=== PATIENT | male | born 1950 | race Caucasian/White ===

== ENCOUNTER → 2021-01-17 | Outpatient (CLI) | payer MEDICARE ==
--- NOTE | 2021-01-17 15:19 | US ---
EXAMINATION TYPE: US thyroid st tissue head/neck DATE OF EXAM: 01/17/2021 COMPARISON: NONE CLINICAL HISTORY: E07.9 Disorder of thyroid, unspecified. Difficulty swallowing GLAND SIZE: Right Lobe: 4.6 x 1.8 x 1.7 cm Overall Parenchyma: homogenous Left Lobe: 3.8 x 2.4 x 1.3 cm Overall Parenchyma: homogeneous Isthmus Thickness: 0.2 cm NODULES RIGHT: # of nodules measured on right: 1 1. 0.9 X 0.5 x 1.1 cm, lower medial, mixed cystic and solid, hypoechoic nodule, which is wider than tall, with smooth margins, without echogenic foci. Prior size: no previous LEFT: # of nodules measured on left: 0 ISTHMUS: # of nodules measured in the isthmus: 0 Bilateral neck scanned, 1.2 x 0.7 x 1.0cm cystic area seen in left neck posterior to left thyroid lob e. IMPRESSION: Mildly suspicious nodule right lobe thyroid. 2017 ACR TI-RADS LEVEL: TR-RADS 3 - Mildly Suspicious: Follow if > 1.5 cm, FNA if > 2.5 cm *Highest TI-RADS level nodule reported
== END | disposition home or self-care (01) ==
LOC: RADUSWWP 09:33
PROVIDERS: ATTEND Internal Medicine
DX: E07.89 Other specified disorders of thyroid (principal)
CPT/HCPCS: 76536

== ENCOUNTER → 2021-02-13 | Outpatient (CLI) | payer MEDICARE ==
--- NOTE | 2021-02-13 09:43 | FL ---
ESOPHOGRAM. HISTORY: Dysphagia Esophagram was performed per the air contrast technique. The patient swallowed barium and effervesce nt crystals without difficulty or delay. Esophageal peristalsis and motility appear to be within normal limits. There is no evidence for filling defect, mass or diverticulum. No hiatal hernia seen. Subsequently single contrast cervical esophagram was performed which fails demonstrate evidence for a spiration penetration or mass. IMPRESSION: Unremarkable study.
== END | disposition home or self-care (01) ==
LOC: RADUSWWP 08:43
PROVIDERS: ATTEND Otolaryngology
DX: R13.10 Dysphagia, unspecified (principal)
CPT/HCPCS: 74220

== ENCOUNTER 2022-01-14 16:08 | Emergency (ER) | payer MEDICARE ==
[2022-01-14 16:39] VITALS: RESP 16; TEMP 98
[2022-01-14] MEDS ORDERED: RABIES VACCINE (PCEC) 2.5 UNIT KIT IM ONE (16:49)
[2022-01-14] MEDS ORDERED: RABIES IMM GLOB 300 UNIT/2 ML VIAL IM ONE (16:50)
[2022-01-14] MEDS ORDERED: CEPHALEXIN 500 MG CAP PO STA (16:51)
--- NOTE | 2022-01-14 17:03 | ED ---
Animal Bite HPI - General Chief Complaint: Animal Bite Stated Complaint: raccoon bite Time Seen by Provider: 01/14/22 16:39 Source: patient Mode of arrival: ambulatory Limitations: no limitations - History of Present Illness Initial Comments: Patient is 71-year-old male who presents to the emergency department for evaluation of raccoon bite. Patient states 2 hours prior to arrival who was bit by a raccoon in the front of his left thigh. Patient reports minimal pain. Denies history of rabies vaccine. Denies fever, chills, other concerns. - Related Data Previous Rx's Medication Instructions Recorded Amoxic-Pot Clav 875-125Mg 1 tab PO Q12HR 7 Days #14 tab 01/14/22 [Augmentin 875-125] Allergies Allergy/AdvReac Type Severity Reaction Status Date / Time No Known Allergies Allergy Verified 01/14/22 16:39 Review of Systems ROS Statement: Those systems with pertinent positive or pertinent negative responses have been documented in the HPI. ROS Other: All systems not noted in ROS Statement are negative. Past Medical History Past Medical History: No Reported History History of Any Multi-Drug Resistant Organisms: None Reported Additional Past Surgical History / Comment(s): vasectomy Past Psychological History: No Psychological Hx Reported Smoking Status: Former smoker Past Alcohol Use History: None Reported Past Drug Use History: Marijuana General Exam Limitations: no limitations General appearance: alert, in no apparent distress Head exam: Present: atraumatic, normocephalic, normal inspection Respiratory exam: Present: normal lung sounds bilaterally. Absent: respiratory distress, wheezes, rales, rhonchi, stridor Cardiovascular Exam: Present: regular rate, normal rhythm, normal heart sounds. Absent: systolic murmur, diastolic murmur, rubs, gallop, clicks Extremities exam: Present: other (puncture wound and abrasion to anterior distal left thigh. No active bleeding) Neurological exam: Present: alert, oriented X3, CN II-XII intact Psychiatric exam: Present: normal affect, normal mood Skin exam: Present: warm, dry, intact, normal color. Absent: rash Course Vital Signs 01/14/22 01/14/22 01/14/22 16:35 17:38 19:17 Temperature 98 F Pulse Rate 87 68 78 Respiratory 16 16 16 Rate Blood Pressure 129/69 130/78 O2 Sat by Pulse 94 L 95 94 L Oximetry Medical Decision Making - Medical Decision Making This is a 71-year-old male presenting after a raccoon bite. Wound irrigated extensively. Patient given rabies vaccine and immune globulin. He was given a paper prescription for rest of the vaccine series including day 3, 7, 14. Given Augmentin as wound infection prophylaxis and will be discharged with prescription. Dr. Holbrook is my attending. Disposition Clinical Impression: Bite by animal Disposition: HOME SELF-CARE Condition: Good Instructions (If sedation given, give patient instructions): Rabies Vaccine (By injection), Rabies Immune Globulin (By injection), Animal Bite (ED) Additional Instructions: Take medication as directed. Keep wound clean and dry. Report to Swati to finish rabies vaccine series on 01/17, 01/21, and 01/28. Follow-up with primary c are provider in one to 2 days. Return to the emergency department experience new, concerning, or worsening symptoms. Prescriptions: Amoxic-Pot Clav 875-125Mg [Augmentin 875-125] 1 tab PO Q12HR 7 Days #14 tab Is patient prescribed a controlled substance at d/c from ED?: No Referrals: None,Stated [Primary Care Provider] - 1-2 days Time of Disposition: 17:03
[2022-01-14] MEDS ORDERED: AMOXIC-POT CLAV 875-125MG 1 EACH TAB PO STA (17:12)
[2022-01-14 19:17] VITALS: BP 130/78
[2022-01-14 19:18] VITALS: PULSE 78
== END 2022-01-14 19:18 | disposition home or self-care (01) ==
LOC: EC 16:08 → SUPCPDRO 16:08 → EC 19:18
DX: S71.152A Open bite, left thigh, initial encounter (principal); F12.90 Cannabis use, unspecified, uncomplicated; Z87.891 Personal history of nicotine dependence; W55.51XA Bitten by raccoon, initial encounter; Z20.3 Contact with and (suspected) exposure to rabies
CPT/HCPCS: 90377; 90471; 90675; 96372; 99283

== ENCOUNTER 2022-02-14 18:09 | Inpatient (IN) | payer MEDICARE ==
[2022-02-14] MEDS ORDERED: IPRATROPIUM 0.5 MG/2.5 ML NEBU INHALATION STA (18:17)
[2022-02-14] MEDS ORDERED: ALBUTEROL NEBULIZED 2.5 MG/3 ML INHALATION STA (18:17)
[2022-02-14] MEDS ORDERED: DEXAMETHASONE SOD PHOSPHATE 10 MG/ML 1 ML VIAL IVP STA (18:18)
--- NOTE | 2022-02-14 18:28 | ED ---
General Adult HPI - General Chief complaint: Shortness of Breath Stated complaint: ge Source: patient, EMS Mode of arrival: EMS Limitations: no limitations - History of Present Illness Initial comments: This is a 71-year-old male with a past medical history including COPD presents emergency department for increasing shortness of breath by EMS. The patient stated he was on his couch earlier today when he started to experience right- sided mid and lower chest pain associated with increasing shortness of breath. The patient stated that he asked his [id number] who is a nurse and she recommended that he call EMS for evaluation. The patient received a breathing treatment by EMS during transport and he did state that his breathing had improved since that time. The patient stated that he did not have any acute trauma on the right side of the chest did state that he did pick up and delivery driver his dog while in the process of euthanizing him several days ago. The patient stated that she did not have any acute pain at this time but did state that the pain started abruptly today on the right side of his chest. The patient denied any nausea, vomiting or diaphoresis. The patient was resting in bed comfortably without any fevers or chills or any recently known sick contacts. - Related Data Home Medications Medication Instructions Recorded Confirmed No Known Home Medications 02/14/22 02/14/22 Allergies Allergy/AdvReac Type Severity Reaction Status Date / Time No Known Allergies Allergy Verified 02/14/22 19:29 Review of Systems ROS Statement: Those systems with pertinent positive or pertinent negative responses have been documented in the HPI. ROS Other: All systems not noted in ROS Statement are negative. Past Medical History Past Medical History: No Reported History History of Any Multi-Drug Resistant Organisms: None Reported Additional Past Surgical History / Comment(s): vasectomy Past Psychological History: No Psychological Hx Reported Smoking Status: Former smoker Past Alcohol Use History: Occasional, Rare Past Drug Use History: Marijuana General Exam Limitations: no limitations General appearance: alert Head exam: Present: atraumatic, normocephalic Eye exam: Present: normal appearance, PERRL Pupils: Present: normal accommodation ENT exam: Present: normal exam, normal oropharynx, mucous membranes moist Neck exam: Present: normal inspection, full ROM Respiratory exam: Present: decreased breath sounds Cardiovascular Exam: Present: regular rate, normal rhythm, normal heart sounds GI/Abdominal exam: Present: soft, normal bowel sounds Extremities exam: Present: normal inspection, full ROM Back exam: Present: normal inspection, full ROM Neurological exam: Present: alert, oriented X3, CN II-XII intact Psychiatric exam: Present: normal affect, normal mood Skin exam: Present: warm, dry Course Vital Signs 02/14/22 02/14/22 02/14/22 18:10 19:02 19:29 Temperature 97.7 F Pulse Rate 102 H 102 H 108 H Respiratory 20 Rate Blood Pressure 141/82 O2 Sat by Pulse 92 L Oximetry 02/14/22 02/14/22 02/14/22 19:38 20:07 20:12 Temperature Pulse Rate 93 99 92 Respiratory 18 20 16 Rate Blood Pressure 128/76 110/82 120/72 O2 Sat by Pulse 97 96 97 Oximetry 02/14/22 21:47 Temperature Pulse Rate 78 Respiratory 18 Rate Blood Pressure 110/75 O2 Sat by Pulse 98 Oximetry EKG Findings - EKG Comments: EKG Findings:: An EKG was obtained and was read by myself. EKG showed a rate of 70, GA interval 149 and gnosticism 91. QTc was 423. This EKG showed a normal sinus rhythm with no ST segment elevations or depressions noted. There was atrial enlargement noted in leads 2, 3 and aVF likely consistent with the patient's COPD. Procedures - Chest Tube Insertion Consent Obtained: written consent Side of Procedure: right Indication: Pneumothorax Placed on monitor/pulse oximetry: Yes Site Prep: Chloroprep, Sterile Drape Applied Local Anesthesia: Lidocaine 1% Amount (mLs): 3 Insertion Site: Other (Anterior midclavicular line, 3rd intercostal space) Scalpel: #10 Open into Pleural Space Using: Other (Thoravent kit) Tube Size (Mauritanian): Other (Throavent) Returns: Air Sutured in Place: No (Thoravent sticker) Attached to Suction: Yes (Low int suction through chamber) Type of Suction: Pleuravac Repeat X-ray Results: Lung Inflated Patient Tolerated Procedure: well Medical Decision Making - Medical Decision Making The patient was seen and evaluated in the emergency department. On physical exam, the patient was resting in bed without any acute distress. Vital signs admission were stable and within normal limits however the patient did have hypoxia on arrival on room air. Due to the nature the patient's complaints, laboratory workup, chest x-ray and EKG were obtained. The patient did receive a dose of Decadron as well as a second breathing treatment including albuterol and ipratropium. The patient was resting in bed comfortably on my reevaluation. Chest x-ray was read and interpreted by myself. Chest x-ray showed a right- sided pneumothorax approximately 50%. Due to these findings, a Thoravent was placed successfully on the right side, anterior midclavicular third intercostal space. The patient was placed to intermittent suction and did tolerate the procedure and the placement well. The patient was given Dilaudid 1 mg and final grams of Versed for the procedure and there were no complications noted. Due to the patient's spontaneous pneumothorax and resolution of this based on the second chest x-ray. Repeat chest x-ray was obtained and read by myself as well and showed clearing of the right-sided pneumothorax compared to the recent exam. Dr. Mckee was covering for Dr. Noguera and was contacted and accepted the patient for admission at 2026. The cardiac thoracic surgeon, Dr. Penaloza was also contacted at 2042 was present consult at this time. He did request a CT thorax without contrast and this was ordered at this time. The patient remained stable and was admitted in stable condition. - Lab Data Result diagrams: 02/14/22 18:21 02/14/22 18:21 Lab Results 02/14/22 02/14/22 02/14/22 Range/Units 18:21 18:21 18:21 WBC 10.4 (3.8-10.6) k/uL RBC 4.92 (4.30-5.90) m/uL Hgb 15.7 (13.0-17.5) gm/dL Hct 49.6 (39.0-53.0) % MCV 100.6 H (80.0-100.0) fL MCH 31.8 (25.0-35.0) pg MCHC 31.6 (31.0-37.0) g/dL RDW 13.1 (11.5-15.5) % Plt Count 181 (150-450) k/uL MPV 9.4 Neutrophils % 76 % Lymphocytes % 15 % Monocytes % 5 % Eosinophils % 1 % Basophils % 0 % Neutrophils # 7.9 H (1.3-7.7) k/uL Lymphocytes # 1.6 (1.0-4.8) k/uL Monocytes # 0.5 (0-1.0) k/uL Eosinophils # 0.1 (0-0.7) k/uL Basophils # 0.0 (0-0.2) k/uL Sodium 139 (137-145) mmol/L Potassium 4.4 (3.5-5.1) mmol/L Chloride 100 (98-107) mmol/L Carbon Dioxide 33 H (22-30) mmol/L Anion Gap 6 mmol/L BUN 18 (9-20) mg/dL Creatinine 0.79 (0.66-1.25) mg/dL Est GFR (CKD-EPI)AfAm >90 (>60 ml/min/1.73 sqM) Est GFR (CKD-EPI)NonAf >90 (>60 ml/min/1.73 sqM) Glucose 118 H (74-99) mg/dL Calcium 9.1 (8.4-10.2) mg/dL Magnesium 2.2 (1.6-2.3) mg/dL Total Bilirubin 0.7 (0.2-1.3) mg/dL AST 31 (17-59) U/L ALT 19 (4-49) U/L Alkaline Phosphatase 58 (38-126) U/L Troponin I <0.012 (0.000-0.034) ng/mL NT-Pro-B Natriuret Pep pg/mL Total Protein 7.1 (6.3-8.2) g/dL Albumin 4.2 (3.5-5.0) g/dL Coronavirus (PCR) (Not Detectd) 02/14/22 02/14/22 Range/Units 18:21 18:21 WBC (3.8-10.6) k/uL RBC (4.30-5.90) m/uL Hgb (13.0-17.5) gm/dL Hct (39.0-53.0) % MCV (80.0-100.0) fL MCH (25.0-35.0) pg MCHC (31.0-37.0) g/dL RDW (11.5-15.5) % Plt Count (150-450) k/uL MPV Neutrophils % % Lymphocytes % % Monocytes % % Eosinophils % % Basophils % % Neutrophils # (1.3-7.7) k/uL Lymphocytes # (1.0-4.8) k/uL Monocytes # (0-1.0) k/uL Eosinophils # (0-0.7) k/uL Basophils # (0-0.2) k/uL Sodium (137-145) mmol/L Potassium (3.5-5.1) mmol/L Chloride (98-107) mmol/L Carbon Dioxide (22-30) mmol/L Anion Gap mmol/L BUN (9-20) mg/dL Creatinine (0.66-1.25) mg/dL Est GFR (CKD-EPI)AfAm (>60 ml/min/1.73 sqM) Est GFR (CKD-EPI)NonAf (>60 ml/min/1.73 sqM) Glucose (74-99) mg/dL Calcium (8.4-10.2) mg/dL Magnesium (1.6-2.3) mg/dL Total Bilirubin (0.2-1.3) mg/dL AST (17-59) U/L ALT (4-49) U/L Alkaline Phosphatase (38-126) U/L Troponin I (0.000-0.034) ng/mL NT-Pro-B Natriuret Pep 40 pg/mL Total Protein (6.3-8.2) g/dL Albumin (3.5-5.0) g/dL Coronavirus (PCR) Not Detected (Not Detectd) Critical Care Time Critical Care Time: Yes Total Critical Care Time: 35 Disposition Clinical Impression: Spontaneous pneumothorax Disposition: ADMITTED IP TO THIS [facility] Condition: Stable Is patient prescribed a controlled substance at d/c from ED?: No Referrals: Natalie Noguera MD [Primary Care Provider] - 1-2 days Time of Disposition: 20:27 Decision to Admit Reason: Admit from EC Decision Date: 02/14/22 Decision Time: 20:27
[2022-02-14 18:30] LABS: Basophils % (A) 0 %; Eosinophils # (A) 0.1 k/uL (0-0.7); Eosinophils % (A) 1 %; HCT 49.6 % (39.0-53.0); HGB 15.7 gm/dL (13.0-17.5); Lymphocytes # (A) 1.6 k/uL (1.0-4.8); Lymphocytes % (A) 15 %; MCH 31.8 pg (25.0-35.0); MCHC 31.6 g/dL (31.0-37.0); MCV 100.6 fL (80.0-100.0); Mean Platelet Volume 9.4; Monocytes # (A) 0.5 k/uL (0-1.0); Monocytes % (A) 5 %; Neutrophils # (A) 7.9 k/uL (1.3-7.7); Neutrophils % (A) 76 %; Platelet Count 181 k/uL (150-450); RBC 4.92 m/uL (4.30-5.90); RDW 13.1 % (11.5-15.5); WBC 10.4 k/uL (3.8-10.6)
[2022-02-14 18:41] LABS: ALT 19 U/L (4-49); AST 31 U/L (17-59); African American GFR (CKD) >90 (>60 ml/min/1.73 sqM); Albumin 4.2 g/dL (3.5-5.0); Alkaline Phosphatase 58 U/L (38-126); Anion Gap 6 mmol/L; Blood Urea Nitrogen 18 mg/dL (9-20); Calcium 9.1 mg/dL (8.4-10.2); Carbon Dioxide 33 mmol/L (22-30); Chloride 100 mmol/L (98-107); Glucose 118 mg/dL (74-99); Magnesium 2.2 mg/dL (1.6-2.3); Non-African American GFR(CKD) >90 (>60 ml/min/1.73 sqM); Sodium 139 mmol/L (137-145); Total Bilirubin 0.7 mg/dL (0.2-1.3); Total Protein 7.1 g/dL (6.3-8.2)
--- NOTE | 2022-02-14 18:51 | XR ---
EXAMINATION TYPE: XR chest 2V DATE OF EXAM: 02/14/2022 COMPARISON: 09/01/2021 HISTORY: Short of breath TECHNIQUE: FINDINGS: Heart is normal. Lungs are clear of consolidation. There is some pulmonary hyperinflation a nd flattening of the diaphragm. There are no hilar masses. The bony thorax is intact. There is a moderate size right pneumothorax. Trachea deviated slightly to the left side. Heart also d eviated slightly to the left side. IMPRESSION: There is approximately 50% right-sided pneumothorax. There is some small amount of tensio n and shift of the heart to the left. There is COPD. Pneumothorax is new compared to old exam. Exam was discussed with emergency room attending staff at 6:45 PM.
[2022-02-14 18:54] LABS: Potassium 4.4 mmol/L (3.5-5.1)
[2022-02-14] MEDS ORDERED: MIDAZOLAM 1 MG/ML 5 ML VIAL IV STA (19:41)
[2022-02-14] MEDS ORDERED: HYDROmorphone 1 MG/ML 1 ML SYRINGE IVP STA (19:41)
--- NOTE | 2022-02-14 20:28 | XR ---
EXAMINATION TYPE: XR chest 1V portable DATE OF EXAM: 02/14/2022 COMPARISON: Today HISTORY: Pneumothorax TECHNIQUE: Single view FINDINGS: There is a right-sided chest tube. Trachea is midline. No pneumothorax seen. Lungs are travis r of infiltrate. IMPRESSION: There is clearing of the right-sided pneumothorax compared to recent exam.
[2022-02-14] MEDS ORDERED: NALOXONE 0.4 MG/ML 1 ML VIAL IV PRN (21:47)
--- NOTE | 2022-02-14 21:49 | CT ---
EXAMINATION TYPE: CT chest wo con DATE OF EXAM: 02/14/2022 COMPARISON: None HISTORY: Spontaneous pneumothorax. CT DLP: 362.4 mGycm Automated exposure control for dose reduction was used. Images obtained from the thoracic inlet to the diaphragm with no contrast. There is small right-sided pneumothorax less than 5%. There is pulmonary diffuse emphysema. No medias tinal adenopathy. There are no hilar masses. The ascending aorta measures 3.9 cm. There is coronary a rtery calcification. There is some mild subsegmental atelectasis at the right lung base. Heart size i s normal. The thoracic spine is intact. No significant compression deformity. Sternum is intact. Ther e are pancreatic calcifications consistent with chronic pancreatitis. IMPRESSION: Small right-sided pneumothorax. Pulmonary emphysema. No suspicious pulmonary mass. 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
[2022-02-15] MEDS: HYDROcodone/APAP 5-325MG 1 EACH TAB PO PRN ×4 (01:59→22:27)
--- NOTE | 2022-02-15 07:33 | XR ---
EXAMINATION TYPE: XR chest 1V portable DATE OF EXAM: 02/15/2022 7:21 AM COMPARISON: Chest radiograph from one day prior. TECHNIQUE: XR chest 1V portable Portable AP radiograph of the chest. CLINICAL INDICATION:Male, 71 years old with history of pneumothorax; FINDINGS: Lungs/Pleura: There is flattening of the diaphragm with increased lucency of the lungs. No evidence o f pneumothorax, pleural effusion or focal consolidation. Pulmonary vascularity: Unremarkable. Heart/mediastinum: Cardiomediastinal silhouette is unremarkable. Musculoskeletal: No acute osseous pathology. Other findings: None Lines/Tubes: Right thoracotomy tube is present without appreciable pneumothorax. IMPRESSION: 1. Right thoracotomy tube without appreciable pneumothorax. 2. COPD changes
--- NOTE | 2022-02-15 09:31 | P.GSCN ---
History of Present Illness Consult date: 02/15/22 Reason for Consult: Spontaneous right sided pneumothorax, status post thoravent placement by the ER physicians Requesting physician: Mo Boateng History of present illness: This is a 71 year old male who states he does not follow with a primary care physician outpatient on a regular basis and who currently takes no medications at home. He has a previous medical history of COPD, previous heavy tobacco dependence, daily marijuana use, and GERD. He presented to [facility] with complaints of significant shortness of breath, more than he usually has due to his COPD. He denies any trauma or precipitating factors. He was given nebulizer treatments which partially relieved his SOB. Chest X-Ray completed in the ER demonstrated significant right sided pneumothorax. A thora-vent was placed by the emergency room physicians. Repeat CXR demonstrated almost complete re-expansion of the right lung. He was sent for CT of the chest which did confirm small right sided pneumothorax still present. He was admitted for pneumothorax management with consultation placed to Dr. Penaloza from thoracic surgery for management. Review of Systems ROS was completed and was negative except as noted - Respiratory Reports as per HPI, Reports dyspnea Past Medical History Past Medical History: COPD, GERD/Reflux, Hyperlipidemia Additional Past Medical History / Comment(s): L4/L5 spinal fusion 1989, COPD, History of Any Multi-Drug Resistant Organisms: None Reported Additional Past Surgical History / Comment(s): vasectomy, L4/L5 spinal fusion 1989; "esophagus wrapped" for his GERD Past Anesthesia/Blood Transfusion Reactions: No Reported Reaction Past Psychological History: No Psychological Hx Reported Smoking Status: Former smoker Past Alcohol Use History: None Reported Additional Past Alcohol Use History / Comment(s): reports he quit drinking when he had his back surgery Past Drug Use History: Marijuana Additional Drug Use History / Comment(s): daily marijuana (smokes it) Additional History: used to smoke 2-2 1/2 packs daily for 20 years, quit smoking in 2011 - Past Family History Brother(s) Family Medical History: AICD/Pacemaker Medications and Allergies Home Medications Medication Instructions Recorded Confirmed Type No Known Home Medications 02/14/22 02/14/22 History Allergies Allergy/AdvReac Type Severity Reaction Status Date / Time No Known Allergies Allergy Verified 02/14/22 19:29 Surgical - Exam Vital Signs Temp Pulse Resp BP Pulse Ox 97.7 F 102 H 20 141/82 92 L 12/03/22 18:10 02/14/22 18:10 02/14/22 18:10 02/14/22 18:10 02/14/22 18:10 CONSTITUTIONAL: Awake and alert, appears comfortable, cooperative, well- developed, well-nourished, no pain, no acute distress EYES: Pupils equal, round, reactive to light, normal ocular movement ENT: Moist mucous membranes without oral lesions present NECK: No masses, no bruits, trachea midline RESPIRATORY: Lungs sounds diminshed bilaterally. Respirations even, nonlabored. Currently on 3 LPM NC with oxygen saturation 96%. Strong cough. CARDIOVASCULAR: S1, S2 present. Regular rate and rhythm. Palpable peripheral pulses bilaterally. No edema present. GASTROINTESTINAL: Abdomen soft, nontender, nondistended without masses or organomegaly noted. There is no rebound or guarding present. Active bowel sounds present 4 quadrants. GENITOURINARY: Deferred INTEGUMENTARY: Skin is warm and dry with evidence of good perfusion. NEUROLOGIC: Cranial nerves II through XII intact, normal coordination, no obvious motor or sensory deficits, speech is normal MUSKULOSKELETAL: Able to move all extremities, strength equal bilaterally, normal posture PSYCHIATRIC: Alert and oriented to person place and time, appropriate affect, intact judgment and insight INVASIVE LINES: Right sided thoravent present, no air leak present, no drainage Results - Labs 02/16/22 08:36 02/16/22 08:36 Abnormal Lab Results - Last 24 Hours (Table) 02/14/22 02/14/22 Range/Units 18:21 18:21 MCV 100.6 H (80.0-100.0) fL Neutrophils # 7.9 H (1.3-7.7) k/uL Carbon Dioxide 33 H (22-30) mmol/L Glucose 118 H (74-99) mg/dL Diabetes panel 02/14/22 Range/Units 18:21 Sodium 139 (137-145) mmol/L Potassium 4.4 (3.5-5.1) mmol/L Chloride 100 (98-107) mmol/L Carbon Dioxide 33 H (22-30) mmol/L BUN 18 (9-20) mg/dL Creatinine 0.79 (0.66-1.25) mg/dL Glucose 118 H (74-99) mg/dL Calcium 9.1 (8.4-10.2) mg/dL AST 31 (17-59) U/L ALT 19 (4-49) U/L Alkaline Phosphatase 58 (38-126) U/L Total Protein 7.1 (6.3-8.2) g/dL Albumin 4.2 (3.5-5.0) g/dL Calcium panel 02/14/22 Range/Units 18:21 Calcium 9.1 (8.4-10.2) mg/dL Albumin 4.2 (3.5-5.0) g/dL Pituitary panel 02/14/22 Range/Units 18:21 Sodium 139 (137-145) mmol/L Potassium 4.4 (3.5-5.1) mmol/L Chloride 100 (98-107) mmol/L Carbon Dioxide 33 H (22-30) mmol/L BUN 18 (9-20) mg/dL Creatinine 0.79 (0.66-1.25) mg/dL Glucose 118 H (74-99) mg/dL Calcium 9.1 (8.4-10.2) mg/dL Adrenal panel 02/14/22 Range/Units 18:21 Sodium 139 (137-145) mmol/L Potassium 4.4 (3.5-5.1) mmol/L Chloride 100 (98-107) mmol/L Carbon Dioxide 33 H (22-30) mmol/L BUN 18 (9-20) mg/dL Creatinine 0.79 (0.66-1.25) mg/dL Glucose 118 H (74-99) mg/dL Calcium 9.1 (8.4-10.2) mg/dL Total Bilirubin 0.7 (0.2-1.3) mg/dL AST 31 (17-59) U/L ALT 19 (4-49) U/L Alkaline Phosphatase 58 (38-126) U/L Total Protein 7.1 (6.3-8.2) g/dL Albumin 4.2 (3.5-5.0) g/dL - Imaging Chest x-ray: report reviewed, image reviewed CT scan - chest: report reviewed, image reviewed Assessment and Plan Assessment: 1. Spontaneous right sided pneumothorax, first occurrence, no history of trauma 2. Shortness of breath, secondary to above 3. COPD 4. Previous heavy tobacco dependence 5. Daily marijuana use 6. GERD Plan: The patient was seen and examined with Dr. Penaloza. All films reviewed, patient does still have tiny right sided apical PTX on this morning's CXR. No air leak present. Chest tube was on intermittent suction-corrected to be on continuous suction. We recommend continuing chest tube to continuous wall suction, RN to add enough extension tubing to allow patient to ambulate in room. Incentive spirometry ordered and should be encouraged. Wean oxygen for saturations>88%. Repeat CXR in AM. If stable and no air leak tomorrow will place thoravent to water seal. Patient counseled to continue to refrain from smoking cigarettes, recommend edibles if continuing marijuana. Counseled that future PTX possible due to extent of COPD. Discussed surgical intervention if he should need it, no indication for surgical intervention at this time. Medical management of other comorbidities per internal medicine. Thank you for this consult. More recommendations to follow based on patient's progress. I have personally seen and examined the patient, performed the documentation and the assessment and plan as written. Number of minutes spent on the visit: 30. KIM StarrC Pt seen and examined with RN NEW GRAD above. Agree with her findings. I spent 30 minutes evaluating the patient data and discussing the findings with the patient.
--- NOTE | 2022-02-15 12:32 | P.HPIM ---
History of Present Illness H&P Date: 02/15/22 History of present illness; patient is a 71-year-old gentleman with past medical history significant for COPD, history of tobacco addiction, GERD presented to the ER because of shortness of breath. Patient was in his usual state of health yesterday when while sitting on the couch he suddenly started complaining of increasing shortness of breath. Patient denied any chest pain at time. Denies any complaint of orthopnea or PND. There was no complain of any palpitations. Because of shortness of breath EMS was called and patient received breathing treatment on his way to the ER. In the ER chest x-ray was done that showed patient to have a right-sided pneumothorax for which chest tube was placed and patient was admitted for further evaluation and treatment REVIEW OF SYSTEMS: CONSTITUTIONAL: No fever, no malaise, no fatigue. HEENT: No recent visual problems or hearing problems. Denied any sore throat. CARDIOVASCULAR: No chest pain, orthopnea, PND, no palpitations, no syncope. PULMONARY: As mentioned in HPI GASTROINTESTINAL: No diarrhea, no nausea, no vomiting, no abdominal pain. NEUROLOGICAL: No headaches, no weakness, no numbness. HEMATOLOGICAL: Denies any bleeding or petechiae. GENITOURINARY: Denies any burning micturition, frequency, or urgency. MUSCULOSKELETAL/RHEUMATOLOGICAL: Denies any joint pain, swelling, or any muscle pain. ENDOCRINE: Denies any polyuria or polydipsia. The rest of the 14-point review of systems is negative. PHYSICAL EXAMINATION: GENERAL: The patient is alert and oriented x3, not in any acute distress. Well developed, well nourished. HEENT: Pupils are round and equally reacting to light. EOMI. No scleral icterus. No conjunctival pallor. Normocephalic, atraumatic. No pharyngeal erythema. No thyromegaly. CARDIOVASCULAR: S1 and S2 present. No murmurs, rubs, or gallops. PULMONARY: Chest is clear to auscultation, no wheezing or crackles. Right-sided chest tubes seen ABDOMEN: Soft, nontender, nondistended, normoactive bowel sounds. No palpable organomegaly. MUSCULOSKELETAL: No joint swelling or deformity. EXTREMITIES: No cyanosis, clubbing, or pedal edema. NEUROLOGICAL: Gross neurological examination did not reveal any focal deficits. SKIN: No rashes. Assessment and plan Right sided spontaneous pneumothorax. History of COPD History of tobacco addiction Plan; Encourage use of I-S Aggressive bronchopulmonary hygiene. Start patient on breathing treatments with DuoNeb and Symbicort. We'll consult pulmonary for evaluation Chest tube management per CT surgery Continue pain management Past Medical History Past Medical History: COPD, GERD/Reflux, Hyperlipidemia Additional Past Medical History / Comment(s): L4/L5 spinal fusion 1989, COPD, History of Any Multi-Drug Resistant Organisms: None Reported Additional Past Surgical History / Comment(s): vasectomy, L4/L5 spinal fusion 1989; "esophagus wrapped" for his GERD Past Anesthesia/Blood Transfusion Reactions: No Reported Reaction Past Psychological History: No Psychological Hx Reported Smoking Status: Former smoker Past Alcohol Use History: None Reported Additional Past Alcohol Use History / Comment(s): reports he quit drinking when he had his back surgery Past Drug Use History: Marijuana Additional Drug Use History / Comment(s): daily marijuana (smokes it) - Past Family History Brother(s) Family Medical History: AICD/Pacemaker Medications and Allergies Home Medications Medication Instructions Recorded Confirmed Type No Known Home Medications 02/14/22 02/14/22 History Allergies Allergy/AdvReac Type Severity Reaction Status Date / Time No Known Allergies Allergy Verified 02/14/22 19:29 Physical Exam Vitals: Vital Signs Temp Pulse Pulse Pulse Resp BP BP 02/15/22 11:05 02/15/22 08:00 75 18 02/15/22 07:10 97.6 F 75 18 106/70 02/15/22 02:00 97.7 F 83 15 110/63 02/14/22 23:49 97.9 F 16 130/77 02/14/22 21:47 78 18 110/75 02/14/22 20:12 92 16 120/72 02/14/22 20:07 99 20 110/82 02/14/22 19:38 93 18 128/76 02/14/22 19:29 108 H 02/14/22 19:02 102 H 02/14/22 18:10 97.7 F 102 H 20 141/82 Pulse Ox 02/15/22 11:05 98 02/15/22 08:00 02/15/22 07:10 97 02/15/22 02:00 96 02/14/22 23:49 97 02/14/22 21:47 98 02/14/22 20:12 97 02/14/22 20:07 96 02/14/22 19:38 97 02/14/22 19:29 02/14/22 19:02 02/14/22 18:10 92 L Intake and Output 02/14/22 02/15/22 02/15/22 22:59 06:59 14:59 Intake Total 400 Output Total 5 Balance 395 Intake: Oral 400 Output: Chest Tube Drainage 5 Thora-Vent Right Anterior 5 Chest Other: Voiding Method Toilet Weight 54.431 kg Results CBC & Chem 7: 02/14/22 18:21 02/14/22 18:21 Labs: Abnormal Lab Results - Last 24 Hours (Table) 02/14/22 02/14/22 Range/Units 18:21 18:21 MCV 100.6 H (80.0-100.0) fL Neutrophils # 7.9 H (1.3-7.7) k/uL Carbon Dioxide 33 H (22-30) mmol/L Glucose 118 H (74-99) mg/dL Thrombosis Risk Factor Assmnt - Choose All That Apply Any of the Below Risk Factors Present?: Yes Each Factor Represents 1 point: Abnormal pulmonary function (COPD) Other Risk Factors: Yes Each Risk Factor Represents 2 Points: Age 61-74 years Other congenital or acquired thrombophilia - If yes, enter type in comment: No Thrombosis Risk Factor Assessment Total Risk Factor Score: 3 Thrombosis Risk Factor Assessment Level: Moderate Risk
[2022-02-15] MEDS: SYMBICORT 160-4.5 MCG INHALER INHALATION SCH (20:41)
[2022-02-16] MEDS: IPRATROPIUM-ALBUTEROL 3 ML NEB INHALATION PRN ×4 (07:43→20:30)
[2022-02-16] MEDS: SYMBICORT 160-4.5 MCG INHALER INHALATION SCH ×2 (07:43→20:30)
--- NOTE | 2022-02-16 07:54 | XR ---
EXAMINATION TYPE: XR chest 1V portable DATE OF EXAM: 02/16/2022 HISTORY: Shortness of breath. COMPARISON: 02/15/2022 TECHNIQUE: Single view of the chest is submitted. FINDINGS: Demonstrated are scattered senescent parenchymal change. Right pleural catheter is in place. Right-sided pneumothorax has increased in size with apical pleura l measurement of 2.5 cm versus 6.3 mm previously. There is increasing subcutaneous emphysema along th e right chest. Hilar and mediastinal structures are within normal limits. Degenerative changes are seen of the dorsal spine. IMPRESSION: 1. Increasing size of right-sided pneumothorax.
--- NOTE | 2022-02-16 09:47 | P.PN ---
Subjective Progress Note Date: 02/16/22 Principal diagnosis: Spontaneous right sided pneumothorax, first occurrence, no history of trauma. History of COPD, previous heavy tobacco dependence, daily marijuana use, GERD The patient was seen and examined this morning sitting up in bed in no acute distress. Denies chest pain or shortness of breath. Currently on room air with oxygen saturation in the low to mid 90s. Able to achieve 2000 mL on his incentive spirometry. Right-sided thoravent present, remains to continuous wall suction without any evidence of air leak in the atrium, however when suction tubing removed there is fluctuation of the red diaphragm with coughing. Chest x-ray reviewed this morning demonstrates slight increase in right-sided pneumothorax with some subcutaneous emphysema present. No other new concerns. Objective - Vital Signs Vital signs: Vital Signs Temp 98.1 F 02/16/22 07:45 Pulse 76 02/16/22 07:57 Resp 18 02/16/22 07:45 BP 121/75 02/16/22 00:33 Pulse Ox 92 L 02/16/22 07:45 FiO2 Intake & Output 02/15/22 02/16/22 02/16/22 18:59 06:59 18:59 Output Total 0 Balance 0 Output: Chest Tube Drainage 0 Thora-Vent Right Anterior 0 Chest Other: Voiding Method Toilet # Voids 3 2 1 - Exam CONSTITUTIONAL: Appears comfortable, cooperative, no acute distress RESPIRATORY: Lungs sounds diminished bilaterally. Respirations even, nonlabored. Currently on room air with oxygen saturation 94%. Able to achieve 2000 mL on incentive spirometry. Strong cough. CARDIOVASCULAR: S1, S2 present. Regular rate and rhythm. Palpable peripheral pulses bilaterally. No edema present. No calf pain or tenderness noted. GASTROINTESTINAL: Abdomen soft, nontender, nondistended. Active bowel sounds present 4 quadrants. Tolerating diet. GENITOURINARY: Continues to void INTEGUMENTARY: Skin is warm and dry with evidence of good perfusion NEUROLOGIC: Cranial nerves II through XII intact MUSKULOSKELETAL: Able to move all extremities, strength equal bilaterally, gait normal PSYCHIATRIC: Alert and oriented to person place and time, appropriate affect, intact judgment and insight INVASIVE LINES AND TUBES: Right-sided thoravent present and connected to wall suction, no air leaks present, no drainage present - Allied health notes Allied health notes reviewed: nursing - Labs CBC & Chem 7: 02/14/22 18:21 02/14/22 18:21 - Imaging and Cardiology Chest x-ray: report reviewed, image reviewed Assessment and Plan Assessment: 1. Spontaneous right sided pneumothorax, first occurrence, no history of trauma 2. Shortness of breath, secondary to above 3. COPD 4. Previous heavy tobacco dependence 5. Daily marijuana use 6. GERD Plan: 1. Will continue thoravent to continuous wall suction for another 24 hours 2. Repeat chest x-ray in the morning 3. Encourage incentive spirometry 10 times every hour while awake 4. Increase activity, ambulate in the room as tolerated 5. Medical management of other comorbidities per internal medicine 6. More recommendations to follow
[2022-02-16 12:52] VITALS: BMI 16.2
[2022-02-16 15:23] LABS: HCT 43.4 % (39.6-50.0); HGB 13.9 g/dL (13.0-17.0); MCH 31.8 pg (27.0-32.0); MCV 99.3 fL (80.0-97.0); NRBC Per 100 WBC 0 /100 WBCS (0.0-0.0); Platelet Count 200 X 10*3/uL (140-440); RBC 4.37 X 10*6/uL (4.40-5.60); RDW 13.7 % (11.5-14.5); WBC 9.23 X 10*3/uL (4.50-10.00)
[2022-02-16 15:30] LABS: Albumin 3.7 g/dL (3.8-4.9); Albumin/Globulin Ratio 1.68 (1.60-3.17); Anion Gap 11.1 mmol/L (10.00-18.00); BUN/Creat Ratio 20.8 Ratio (12.00-20.00); Blood Urea Nitrogen 20.8 mg/dL (9.0-27.0); Calcium 9.1 mg/dL (8.7-10.3); Carbon Dioxide 28.9 mmol/L (20.0-27.5); Globulin 2.2 g/dL (1.6-3.3); Non-African American GFR(CKD) 75.9 (60.0-200.0); Total Bilirubin 0.6 mg/dL (0.30-1.20); Total Protein 5.9 g/dL (6.2-8.2)
--- NOTE | 2022-02-16 15:42 | P.CNPUL ---
History of Present Illness Consult date: 02/16/22 Requesting physician: Brannon Mckee Reason for consult: dyspnea, abnormal CXR/CT Chief complaint: Shortness of breath, right-sided chest pain History of present illness: This is a pleasant 71-year-old male patient with no significant past medical history. He is a former smoker who quit in 2011. He does continue to smoke marijuana. No current pulmonary medications. Following up with Dr. Noguera as his primary care provider. He presented here to the emergency room on 02/14/2022 after developing increasing shortness of breath and right-sided chest pain. He was found to have a significant right sided spontaneous pneumothorax. He denied any trauma. He did undergo a right-sided thorax vent placement in the emergency room. White count 9.2. Hemoglobin 13.9. Sodium 140. Potassium 4.0. BUN 20. Creatinine 1.0. Glucose 137. Leung virus by PCR not detected. He did undergo a right-sided thoracentesis placement while in the emergency department. He is seen today in consultation on the regular medical floor. He is currently sitting up in bed. Awake and alert in no acute distress. Maintaining O2 saturations in the 70s on room air. Chest tube remains to wall suction. No significant leak noted. Today's chest x-ray reveals going evidence of the pneumothorax. There is some subcutaneous emphysema noted along the right chest. He is working with the incentive spirometer. Continue on Symbicort and DuoNeb inhalations. [place] for pain control. Review of Systems REVIEW OF SYSTEMS: CONSTITUTIONAL: Denies any recent significant weight loss or weight gain. EYES: Denies change in vision. EARS, NOSE, MOUTH, THROAT: Denies headaches, denies sore throat. CARDIOVASCULAR: Positive for right-sided chest pain, no palpitations or syncopal episodes. RESPIRATORY: Positive for shortness of breath, cough, congestion no hemoptysis. GASTROINTESTINAL: Denies change in appetite, denies abdominal pain GENITOURINARY: Denies hematuria, denies infections. MUSKULOSKELETAL: Denies pain, denies swelling. INTEGUMENTARY: Denies rash, denies eczema. NEUROLOGICAL: Denies recent memory loss, no recent seizure activity. PSYCHIATRIC: Denies anxiety, denies depression. HEMATOLOGIC/LYMPHATIC: Denies anemia, denies enlarged lymph nodes. Past Medical History Past Medical History: COPD, GERD/Reflux, Hyperlipidemia Additional Past Medical History / Comment(s): L4/L5 spinal fusion 1989, COPD, History of Any Multi-Drug Resistant Organisms: None Reported Additional Past Surgical History / Comment(s): vasectomy, L4/L5 spinal fusion 1989; "esophagus wrapped" for his GERD Past Anesthesia/Blood Transfusion Reactions: No Reported Reaction Past Psychological History: No Psychological Hx Reported Smoking Status: Former smoker Past Alcohol Use History: None Reported Additional Past Alcohol Use History / Comment(s): reports he quit drinking when he had his back surgery Past Drug Use History: Marijuana Additional Drug Use History / Comment(s): daily marijuana (smokes it) - Past Family History Brother(s) Family Medical History: AICD/Pacemaker Medications and Allergies Home Medications Medication Instructions Recorded Confirmed Type No Known Home Medications 02/14/22 02/14/22 History Allergies Allergy/AdvReac Type Severity Reaction Status Date / Time No Known Allergies Allergy Verified 02/14/22 19:29 Physical Exam Vitals: Vital Signs Temp Pulse Pulse Pulse Resp BP Pulse Ox 02/16/22 11:18 84 02/16/22 11:07 76 02/16/22 07:57 76 02/16/22 07:45 98.1 F 76 76 18 92 L 02/16/22 07:43 76 02/16/22 00:33 98 F 70 18 121/75 90 L 02/15/22 18:58 98 F 84 18 125/68 91 L Intake and Output 02/16/22 02/16/22 02/16/22 06:59 14:59 22:59 Output Total 0 Balance 0 Output: Chest Tube Drainage 0 Thora-Vent Right Anterior 0 Chest Other: # Voids 2 1 Weight 54.431 kg GENERAL EXAM: Alert, pleasant 71-year-old male patient, on room air, fairly c omfortable in no apparent distress. HEAD: Normocephalic. EYES: Normal reaction of pupils, equal size. NOSE: Clear with pink turbinates. THROAT: No erythema or exudates. NECK: No masses, no JVD. CHEST: No chest wall deformity. Right sided Thora-vent secured in place. Pleural VAC. Wall suction. Minimal leak LUNGS: Equal air entry with no crackles, wheeze, rhonchi or dullness. CVS: S1 and S2 normal with no audible murmur, regular rhythm. ABDOMEN: No hepatosplenomegaly, normal bowel sounds, no guarding or rigidity. SPINE: No scoliosis or deformity SKIN: No rashes CENTRAL NERVOUS SYSTEM: No focal deficits, tone is normal in all 4 extremities. EXTREMITIES: There is no peripheral edema. No clubbing, no cyanosis. Peripheral pulses are intact. Results - Laboratory Findings CBC and BMP: 02/16/22 08:36 02/16/22 08:36 Abnormal lab findings: Abnormal Labs 02/14/22 02/14/22 02/16/22 18:21 18:21 08:36 RBC 4.37 L MCV 100.6 H 99.3 H Neutrophils # 7.9 H Carbon Dioxide 33 H BUN/Creatinine Ratio Glucose 118 H AST Total Protein Albumin 02/16/22 08:36 RBC MCV Neutrophils # Carbon Dioxide 28.9 H BUN/Creatinine Ratio 20.80 H Glucose 137 H AST 13 L Total Protein 5.9 L Albumin 3.7 L - Diagnostic Findings Chest x-ray: image reviewed Assessment and Plan Assessment: Acute right-sided chest pain and shortness of breath secondary to spontaneous right-sided pneumothorax, status post Thor-Vent placement History of heavy chronic tobacco dependence however quit in 2011 History of marijuana use Chronic obstructive pulmonary disease Plan: The patient was seen and evaluated Chest x-rays, labs and medications reviewed Continue Symbicort and DuoNeb inhalations Continue to monitor chest x-ray/pneumothorax Thora-Vent remains in place, CT services on the case Educated regarding the importance of complete smoking cessation Would benefit from a full workup in our office including pulmonary function testing We will continue to follow and make further recommendations based on his clinical status I have personally seen and examined the patient, performed the documentation and the assessment and plan as written. Number of minutes spent on the visit: 20.
--- NOTE | 2022-02-16 19:52 | P.PN ---
Subjective History of present illness; patient is a 71-year-old gentleman with past medical history significant for COPD, history of tobacco addiction, GERD presented to the ER because of shortness of breath. Patient was in his usual state of health yesterday when while sitting on the couch he suddenly started complaining of increasing shortness of breath. Patient denied any chest pain at time. Denies any complaint of orthopnea or PND. There was no complain of any palpitations. Because of shortness of breath EMS was called and patient received breathing treatment on his way to the ER. In the ER chest x-ray was done that showed patient to have a right-sided pneumothorax for which chest tube was placed and patient was admitted for further evaluation and treatment 02/16/2022 Patient is status post right upper chest Thora-Vent which is in a Place Patient does not complain of from dyspnea or coughing or pain while at rest Repeat chest x-ray showing increasing size of the right pneumothorax Pulmonary and cardiovascular surgery team on the case and the recommend further workup as an outpatient for pulmonary function test Objective - Vital Signs Vital signs: Vital Signs Temp 98.1 F 02/16/22 07:45 Pulse 80 02/16/22 15:38 Resp 18 02/16/22 07:45 BP 121/75 02/16/22 00:33 Pulse Ox 92 L 02/16/22 07:45 FiO2 Intake & Output 02/15/22 02/16/22 02/16/22 18:59 06:59 18:59 Output Total 0 Balance 0 Weight 54.431 kg Output: Chest Tube Drainage 0 Thora-Vent Right Anterior 0 Chest Other: Voiding Method Toilet # Voids 3 2 1 - Exam GENERAL: The patient is alert and oriented x3, not in any acute distress. Well developed, well nourished. HEENT: Pupils are round and equally reacting to light. EOMI. No scleral icterus. No conjunctival pallor. Normocephalic, atraumatic. No pharyngeal erythema. No thyromegaly. CARDIOVASCULAR: S1 and S2 present. No murmurs, rubs, or gallops. -PULMONARY: Chest is clear to auscultation, no wheezing or crackles. Right upper chest thora-vent in place ABDOMEN: Soft, nontender, nondistended, normoactive bowel sounds. No palpable organomegaly. MUSCULOSKELETAL: No joint swelling or deformity. EXTREMITIES: No cyanosis, clubbing, or pedal edema. NEUROLOGICAL: Gross neurological examination did not reveal any focal deficits. SKIN: No rashes. no petechiae. - Labs CBC & Chem 7: 02/16/22 08:36 02/16/22 08:36 Labs: Abnormal Lab Results - Last 24 Hours (Table) 02/16/22 02/16/22 Range/Units 08:36 08:36 RBC 4.37 L (4.40-5.60) X 10*6/uL MCV 99.3 H (80.0-97.0) fL Carbon Dioxide 28.9 H (20.0-27.5) mmol/L BUN/Creatinine Ratio 20.80 H (12.00-20.00) Ratio Glucose 137 H (70-110) mg/dL AST 13 L (14-35) U/L Total Protein 5.9 L (6.2-8.2) g/dL Albumin 3.7 L (3.8-4.9) g/dL Assessment and Plan Assessment: Right sided spontaneous pneumothorax. Status post right side thora-vent History of COPD History of tobacco addiction Plan: Continue with Serevent Aggressive bronchopulmonary hygiene. Start patient on breathi continue with ng treatments with DuoNeb and Symbicort. Pulmonary team consult Cardiovascular surgery team of the case Labs and medication were reviewed.. Continue same treatment. Continue with symptomatic treatment. Resume home medication. Monitor lytes and vitals. DVT and GI prophylaxis. Further recommendations as per clinical course of the patient DVT prophylaxis: Subcutaneous heparin GI Prophylaxis: Pepcid \
[2022-02-16] MEDS: HEPARIN SODIUM,PORCINE/PF 5,000 UNIT/0.5 ML SYRINGE SQ SCH (21:14)
[2022-02-16] MEDS: FAMOTIDINE 20 MG/2 ML VIAL IV SCH (21:14)
[2022-02-17] MEDS: IPRATROPIUM-ALBUTEROL 3 ML NEB INHALATION PRN ×4 (07:29→19:54)
[2022-02-17] MEDS: SYMBICORT 160-4.5 MCG INHALER INHALATION SCH ×2 (07:30→19:54)
[2022-02-17] MEDS: FAMOTIDINE 20 MG/2 ML VIAL IV SCH ×2 (08:48→20:55)
[2022-02-17] MEDS: HEPARIN SODIUM,PORCINE/PF 5,000 UNIT/0.5 ML SYRINGE SQ SCH ×2 (08:48→20:55)
--- NOTE | 2022-02-17 08:54 | P.PN ---
Subjective Progress Note Date: 02/17/22 Principal diagnosis: Spontaneous right sided pneumothorax, first occurrence, no history of trauma. History of COPD, previous heavy tobacco dependence, daily marijuana use, GERD The patient was seen and examined this morning sitting up in bed in no acute distress eating breakfast. Denies chest pain or shortness of breath. Currently on room air with oxygen saturation in the low to mid 90s. Able to achieve 2000 mL on his incentive spirometry. Right-sided thoravent present, remains to continuous wall suction without any evidence of air leak in the atrium and no fluctuation of the right diaphragm. Chest x-ray reviewed this morning, no pneumothorax present. No other new concerns. Objective - Vital Signs Vital signs: Vital Signs Temp 97.7 F 02/17/22 07:47 Pulse 76 02/17/22 07:47 Resp 20 02/17/22 07:47 BP 105/70 02/17/22 07:47 Pulse Ox 94 L 02/17/22 07:47 FiO2 21 02/17/22 07:30 Intake & Output 02/16/22 02/17/22 02/17/22 18:59 06:59 18:59 Weight 54.431 kg Other: Voiding Method Toilet # Voids 1 1 - Exam CONSTITUTIONAL: Appears comfortable, cooperative, no acute distress RESPIRATORY: Lungs sounds diminished bilaterally. Respirations even, nonlabored. Currently on room air with oxygen saturation 92%. Able to achieve 2000 mL on incentive spirometry. Strong cough. CARDIOVASCULAR: S1, S2 present. Regular rate and rhythm, sinus rhythm on telemetry. Palpable peripheral pulses bilaterally. No edema present. No calf pain or tenderness noted. GASTROINTESTINAL: Abdomen soft, nontender, nondistended. Active bowel sounds present 4 quadrants. Tolerating diet. GENITOURINARY: Continues to void INTEGUMENTARY: Skin is warm and dry with evidence of good perfusion NEUROLOGIC: Cranial nerves II through XII intact MUSKULOSKELETAL: Able to move all extremities, strength equal bilaterally, gait normal PSYCHIATRIC: Alert and oriented to person place and time, appropriate affect, i ntact judgment and insight INVASIVE LINES AND TUBES: Right-sided thoravent present and connected to wall suction, no air leaks present, no drainage present - Allied health notes Allied health notes reviewed: nursing - Labs CBC & Chem 7: 02/16/22 08:36 02/16/22 08:36 Labs: Abnormal Lab Results - Last 24 Hours (Table) 02/16/22 02/16/22 Range/Units 08:36 08:36 RBC 4.37 L (4.40-5.60) X 10*6/uL MCV 99.3 H (80.0-97.0) fL Carbon Dioxide 28.9 H (20.0-27.5) mmol/L BUN/Creatinine Ratio 20.80 H (12.00-20.00) Ratio Glucose 137 H (70-110) mg/dL AST 13 L (14-35) U/L Total Protein 5.9 L (6.2-8.2) g/dL Albumin 3.7 L (3.8-4.9) g/dL - Imaging and Cardiology Chest x-ray: image reviewed Assessment and Plan Assessment: 1. Spontaneous right sided pneumothorax, first occurrence, no history of trauma 2. Shortness of breath, secondary to above 3. COPD 4. Previous heavy tobacco dependence 5. Daily marijuana use 6. GERD Plan: 1. Thoravent placed to waterseal this morning. 2. Repeat chest x-ray in the morning, if stable will place occlusive cap 3. Encourage incentive spirometry 10 times every hour while awake 4. Increase activity, ambulate in the room as tolerated 5. Medical management of other comorbidities per internal medicine 6. More recommendations to follow
--- NOTE | 2022-02-17 09:01 | XR ---
EXAMINATION TYPE: XR chest 1V portable DATE OF EXAM: 02/17/2022 6:55 AM COMPARISON: Chest radiographs from 02/16/2022. TECHNIQUE: XR chest 1V portable Frontal view of the chest. CLINICAL INDICATION:Male, 71 years old with history of pneumothorax; FINDINGS: Lungs/Pleura: Interval decrease in right-sided pneumothorax with trace apical pneumothorax jumped 4 m m. No pleural effusion or focal consolidation. Pulmonary vascularity: Unremarkable. Heart/mediastinum: Cardiomediastinal silhouette is unremarkable. Atherosclerotic calcifications are seen in the aorta. Musculoskeletal: No acute osseous pathology. Other findings: Similar subcutaneous emphysema along the right chest wall. Lines/Tubes: Right thoracotomy tube is present. IMPRESSION: 1. Decreased size of right pneumothorax with trace apical pneumothorax demonstrated. Stable right th oracotomy tube. 2. Similar right chest wall subcutaneous emphysema.
--- NOTE | 2022-02-17 10:54 | P.PN ---
Subjective History of present illness; patient is a 71-year-old gentleman with past medical history significant for COPD, history of tobacco addiction, GERD presented to the ER because of shortness of breath. Patient was in his usual state of health yesterday when while sitting on the couch he suddenly started complaining of increasing shortness of breath. Patient denied any chest pain at time. Denies any complaint of orthopnea or PND. There was no complain of any palpitations. Because of shortness of breath EMS was called and patient received breathing treatment on his way to the ER. In the ER chest x-ray was done that showed patient to have a right-sided pneumothorax for which chest tube was placed and patient was admitted for further evaluation and treatment 02/16/2022 Patient is status post right upper chest Thora-Vent which is in a Place Patient does not complain of from dyspnea or coughing or pain while at rest Repeat chest x-ray showing increasing size of the right pneumothorax Pulmonary and cardiovascular surgery team on the case and the recommend further workup as an outpatient for pulmonary function test 02/17/2022 Patient reports improvement in his breathing pattern Chest x-ray showing decreased size of the right pneumothorax He is status post right upper chest Thora vent placement which is in place He is saturating 94% on room air Objective - Vital Signs Vital signs: Vital Signs Temp 97.7 F 02/17/22 07:47 Pulse 84 02/17/22 10:51 Resp 20 02/17/22 07:47 BP 105/70 02/17/22 07:47 Pulse Ox 94 L 02/17/22 07:47 FiO2 21 02/17/22 07:30 Intake & Output 02/16/22 02/17/22 02/17/22 18:59 06:59 18:59 Weight 54.431 kg Other: Voiding Method Toilet # Voids 1 1 1 - Exam GENERAL: The patient is alert and oriented x3, not in any acute distress. Well developed, well nourished. HEENT: Pupils are round and equally reacting to light. EOMI. No scleral icterus. No conjunctival pallor. Normocephalic, atraumatic. No pharyngeal erythema. No thyromegaly. CARDIOVASCULAR: S1 and S2 present. No murmurs, rubs, or gallops. -PULMONARY: Chest is clear to auscultation, no wheezing or crackles. Right upper chest thora-vent in place ABDOMEN: Soft, nontender, nondistended, normoactive bowel sounds. No palpable organomegaly. MUSCULOSKELETAL: No joint swelling or deformity. EXTREMITIES: No cyanosis, clubbing, or pedal edema. NEUROLOGICAL: Gross neurological examination did not reveal any focal deficits. SKIN: No rashes. no petechiae. - Labs CBC & Chem 7: 02/16/22 08:36 02/16/22 08:36 Labs: Abnormal Lab Results - Last 24 Hours (Table) 02/16/22 02/16/22 Range/Units 08:36 08:36 RBC 4.37 L (4.40-5.60) X 10*6/uL MCV 99.3 H (80.0-97.0) fL Carbon Dioxide 28.9 H (20.0-27.5) mmol/L BUN/Creatinine Ratio 20.80 H (12.00-20.00) Ratio Glucose 137 H (70-110) mg/dL AST 13 L (14-35) U/L Total Protein 5.9 L (6.2-8.2) g/dL Albumin 3.7 L (3.8-4.9) g/dL Assessment and Plan Assessment: Right sided spontaneous pneumothorax. Status post right side thora-vent History of COPD History of tobacco addiction Plan: Continue with Serevent Aggressive bronchopulmonary hygiene. Start patient on breathi continue with ng treatments with DuoNeb and Symbicort. Pulmonary team consult Cardiovascular surgery team of the case Labs and medication were reviewed.. Continue same treatment. Continue with symptomatic treatment. Resume home medication. Monitor lytes and vitals. DVT and GI prophylaxis. Further recommendations as per clinical course of the patient DVT prophylaxis: Subcutaneous heparin GI Prophylaxis: Pepcid \
--- NOTE | 2022-02-17 15:08 | P.PN ---
Subjective Progress Note Date: 02/17/22 This is a pleasant 71-year-old male patient with no significant past medical history. He is a former smoker who quit in 2011. He does continue to smoke marijuana. No current pulmonary medications. Following up with Dr. Noguera as his primary care provider. He presented here to the emergency room on 05/2021 after developing increasing shortness of breath and right-sided chest pain. He was found to have a significant right sided spontaneous pneumothorax. He denied any trauma. He did undergo a right-sided thorax vent placement in the emergency room. White count 9.2. Hemoglobin 13.9. Sodium 140. Potassium 4.0. BUN 20. Creatinine 1.0. Glucose 137. Leung virus by PCR not detected. He did undergo a right-sided thoracentesis placement while in the emergency department. He is seen today in consultation on the regular medical floor. He is currently sitting up in bed. Awake and alert in no acute distress. Maintaining O2 saturations in the 70s on room air. Chest tube remains to wall suction. No significant leak noted. Today's chest x-ray reveals going evidence of the pneumothorax. There is some subcutaneous emphysema noted along the right chest. He is working with the incentive spirometer. Continue on Symbicort and DuoNeb inhalations. [place] for pain control. The patient is seen today 02/17/2022 follow-up. He is currently sitting up in a chair at the bedside. Awake and alert in no acute distress. Maintaining good O2 saturations in the 90s on room air. No IV fluids. His chest tube has been placed to waterseal. Chest x-ray showing decreased right pneumothorax with a trace apical pneumothorax still present. Thora-Vent remains in place. Right chest wall subcutaneous emphysema noted. He continues to work well with the incentive spirometer. Continued on Symbicort, DuoNeb inhalations. Heparin for DVT prophylaxis. Objective - Vital Signs Vital signs: Vital Signs Temp 98.6 F 02/17/22 14:41 Pulse 82 02/17/22 14:41 Resp 18 02/17/22 14:41 BP 96/58 02/17/22 14:41 Pulse Ox 93 L 02/17/22 14:41 FiO2 21 02/17/22 07:30 Intake & Output 02/16/22 02/17/22 02/17/22 18:59 06:59 18:59 Weight 54.431 kg Other: Voiding Method Toilet # Voids 1 1 1 - Exam GENERAL EXAM: Alert, pleasant 71-year-old male, on room air, up in a chair at the bedside, comfortable in no apparent distress. HEAD: Normocephalic. EYES: Normal reaction of pupils, equal size. NOSE: Clear with pink turbinates. THROAT: No erythema or exudates. NECK: No masses, no JVD. CHEST: Right chest subcutaneous pneumothorax. Right sided Thora-vent secured in place. Pleural VAC. Waterseal. LUNGS: Equal air entry with no crackles, wheeze, rhonchi or dullness. CVS: S1 and S2 normal with no audible murmur, regular rhythm. ABDOMEN: No hepatosplenomegaly, normal bowel sounds, no guarding or rigidity. SPINE: No scoliosis or deformity SKIN: No rashes CENTRAL NERVOUS SYSTEM: No focal deficits, tone is normal in all 4 extremities. EXTREMITIES: There is no peripheral edema. No clubbing, no cyanosis. Peripheral pulses are intact. - Labs CBC & Chem 7: 02/16/22 08:36 02/16/22 08:36 Labs: Abnormal Lab Results - Last 24 Hours (Table) 02/16/22 02/16/22 Range/Units 08:36 08:36 RBC 4.37 L (4.40-5.60) X 10*6/uL MCV 99.3 H (80.0-97.0) fL Carbon Dioxide 28.9 H (20.0-27.5) mmol/L BUN/Creatinine Ratio 20.80 H (12.00-20.00) Ratio Glucose 137 H (70-110) mg/dL AST 13 L (14-35) U/L Total Protein 5.9 L (6.2-8.2) g/dL Albumin 3.7 L (3.8-4.9) g/dL Assessment and Plan Assessment: Acute right-sided chest pain and shortness of breath secondary to spontaneous right-sided pneumothorax, status post Thor-Vent placement History of heavy chronic tobacco dependence however quit in 2011 History of marijuana use Chronic obstructive pulmonary disease Plan: The patient was seen and evaluated Chest x-ray, medications reviewed Improved with just a trace right apical pneumothorax CT tube placed to [facility] per CT services. Continue Symbicort and DuoNeb inhalations Follow-up chest x-ray in a.m. We will continue to follow I have personally seen and examined the patient, performed the documentation and the assessment and plan as written. Number of minutes spent on the visit: 10.
--- NOTE | 2022-02-18 07:15 | XR ---
EXAMINATION TYPE: XR chest 2V DATE OF EXAM: 02/18/2022 6:35 AM COMPARISON: Chest radiograph from one day prior. TECHNIQUE: XR chest 2V Frontal and lateral views of the chest. CLINICAL INDICATION:Male, 71 years old with history of pneumothorax; FINDINGS: Lungs/Pleura: There is flattening of the diaphragm with increased lucency of the lungs. No evidence o f pneumothorax, pleural effusion or focal consolidation. Pulmonary vascularity: Unremarkable. Heart/mediastinum: Cardiomediastinal silhouette is unremarkable. Musculoskeletal: No acute osseous pathology. Other findings: Subcutaneous emphysema scattered throughout the visualized right thorax. This appears decreased from prior. Lines/Tubes:Right thoracotomy tube is present without evidence of pneumothorax. IMPRESSION: 1. Right thoracotomy tube without evidence of pneumothorax. 2. COPD changes. 3. Minimally decreased subcutaneous emphysema.
[2022-02-18 07:31] VITALS: RESP 18
[2022-02-18] MEDS: HEPARIN SODIUM,PORCINE/PF 5,000 UNIT/0.5 ML SYRINGE SQ SCH (08:29)
[2022-02-18] MEDS: FAMOTIDINE 20 MG/2 ML VIAL IV SCH (08:29)
--- NOTE | 2022-02-18 09:26 | P.PN ---
Subjective Progress Note Date: 02/18/22 Principal diagnosis: Spontaneous right sided pneumothorax, first occurrence, no history of trauma. History of COPD, previous heavy tobacco dependence, daily marijuana use, GERD The patient was seen and examined this morning sitting up in bed in no acute distress eating breakfast. Denies chest pain or shortness of breath. Currently on room air with oxygen saturation in the low to mid 90s. Able to achieve 2000 mL on his incentive spirometry. Right-sided thoravent present, remains to waterseal without any evidence of air leak/no fluctuation of the red diaphragm. Chest x-ray reviewed this morning, no pneumothorax present. No other new concerns. Objective - Vital Signs Vital signs: Vital Signs Temp 97.9 F 02/18/22 07:30 Pulse 83 02/18/22 07:30 Resp 18 02/18/22 07:30 BP 139/65 02/18/22 07:30 Pulse Ox 90 L 02/18/22 07:30 FiO2 21 02/17/22 07:30 Intake & Output 02/17/22 02/18/22 02/18/22 18:59 06:59 18:59 Output Total 600 Balance -600 Output: Urine 600 Other: Voiding Method Toilet # Voids 1 - Exam CONSTITUTIONAL: Appears comfortable, cooperative, no acute distress RESPIRATORY: Lungs sounds diminished bilaterally. Respirations even, nonlabored. Currently on room air with oxygen saturation 92%. Able to achieve 2000 mL on incentive spirometry. Strong cough. CARDIOVASCULAR: S1, S2 present. Regular rate and rhythm, sinus rhythm on telemetry. Palpable peripheral pulses bilaterally. No edema present. No calf pain or tenderness noted. GASTROINTESTINAL: Abdomen soft, nontender, nondistended. Active bowel sounds present 4 quadrants. Tolerating diet. GENITOURINARY: Continues to void INTEGUMENTARY: Skin is warm and dry with evidence of good perfusion NEUROLOGIC: Cranial nerves II through XII intact MUSKULOSKELETAL: Able to move all extremities, strength equal bilaterally, gait normal PSYCHIATRIC: Alert and oriented to person place and time, appropriate affect, intact judgment and insight INVASIVE LINES AND TUBES: Right-sided thoravent present to waterseal, no air leaks present - Allied health notes Allied health notes reviewed: nursing - Labs CBC & Chem 7: 02/16/22 08:36 02/16/22 08:36 - Imaging and Cardiology Chest x-ray: report reviewed, image reviewed Assessment and Plan Assessment: 1. Spontaneous right sided pneumothorax, first occurrence, no history of trauma, status post thoravent placement by the emergency room physicians 2. Shortness of breath, secondary to above 3. COPD 4. Previous heavy tobacco dependence 5. Daily marijuana use 6. GERD Plan: 1. Occlusive cap was placed to the thoravent this morning, will repeat chest x- ray at 10 AM 2. If follow-up chest x-ray is stable will discontinue thoravent 3. Encourage incentive spirometry 10 times every hour while awake 4. Increase activity, ambulate in the room as tolerated 5. Medical management of other comorbidities per internal medicine 6. More recommendations to follow
[2022-02-18] MEDS: SYMBICORT 160-4.5 MCG INHALER INHALATION SCH (09:58)
--- NOTE | 2022-02-18 10:11 | XR ---
EXAMINATION TYPE: XR chest 2V DATE OF EXAM: 02/18/2022 COMPARISON: 02/18/2022 TECHNIQUE: PA and lateral views submitted. HISTORY: Follow-up pneumothorax FINDINGS: The lungs are clear and there is no pneumothorax, pleural effusion, or focal pneumonia. Diffuse emp hysematous changes are seen with the heart size normal. Atherosclerotic change aorta and there is dif fuse subcutaneous emphysema. Right-sided chest tube seen with no sizable pneumothorax. IMPRESSION: 1. COPD with no sizable pneumothorax. Persistent diffuse subcutaneous emphysema..
[2022-02-18 11:32] LABS: Glucose,Whole Blood 82 mg/dL (70-110)
[2022-02-18 14:47] VITALS: BP 121/58; TEMP 98.1
--- NOTE | 2022-02-18 14:58 | XR ---
EXAMINATION TYPE: XR chest 1V portable DATE OF EXAM: 02/18/2022 COMPARISON: 02/18/2022 HISTORY: Chest tube removal TECHNIQUE: Single frontal view of the chest is obtained. FINDINGS: Chest tubes been removed and there is a minimal 1-2% right apical pneumothorax. Diffuse crandall bcutaneous emphysema. Hyperinflation suggests COPD. Chronic rib deformities are seen and there is a c urvature of the spine with degenerative changes. No overt failure. No sizable area of consolidation. IMPRESSION: 1. Minimal 1-2% right apical pneumothorax. 2. COPD with diffuse subcutaneous emphysema.
[2022-02-18] MEDS: IPRATROPIUM-ALBUTEROL 3 ML NEB INHALATION PRN (16:05)
[2022-02-18 16:07] VITALS: PULSE 90
--- NOTE | 2022-02-18 16:59 | P.PN ---
Subjective Progress Note Date: 02/18/22 This is a pleasant 71-year-old male patient with no significant past medical history. He is a former smoker who quit in 2011. He does continue to smoke marijuana. No current pulmonary medications. Following up with Dr. Noguera as his primary care provider. He presented here to the emergency room on 05/2021 after developing increasing shortness of breath and right-sided chest pain. He was found to have a significant right sided spontaneous pneumothorax. He denied any trauma. He did undergo a right-sided thorax vent placement in the emergency room. White count 9.2. Hemoglobin 13.9. Sodium 140. Potassium 4.0. BUN 20. Creatinine 1.0. Glucose 137. Leung virus by PCR not detected. He did undergo a right-sided thoracentesis placement while in the emergency department. He is seen today in consultation on the regular medical floor. He is currently sitting up in bed. Awake and alert in no acute distress. Maintaining O2 saturations in the 70s on room air. Chest tube remains to wall suction. No significant leak noted. Today's chest x-ray reveals going evidence of the pneumothorax. There is some subcutaneous emphysema noted along the right chest. He is working with the incentive spirometer. Continue on Symbicort and DuoNeb inhalations. [place] for pain control. The patient is seen today 02/17/2022 follow-up. He is currently sitting up in a chair at the bedside. Awake and alert in no acute distress. Maintaining good O2 saturations in the 90s on room air. No IV fluids. His chest tube has been placed to waterseal. Chest x-ray showing decreased right pneumothorax with a trace apical pneumothorax still present. Thora-Vent remains in place. Right chest wall subcutaneous emphysema noted. He continues to work well with the incentive spirometer. Continued on Symbicort, DuoNeb inhalations. Heparin for DVT prophylaxis. The patient is seen today 02/18/2022 in follow-up on the regular medical floor. He is currently sitting up in a chair. Awake and alert in no acute distress. His chest tube was removed earlier today. Follow-up chest x-ray revealed a mi nimal 1-2% right apical pneumothorax. Evidence of COPD with diffuse subcutaneous emphysema. He is maintaining good O2 saturations in the 90s on room air. No significant chest discomfort. No shortness of breath. No hemoptysis. Continued on Symbicort, DuoNeb inhalations. Heparin for DVT prophylaxis. Objective - Vital Signs Vital signs: Vital Signs Temp 98.1 F 02/18/22 14:46 Pulse 90 02/18/22 16:14 Resp 18 02/18/22 14:46 BP 121/58 02/18/22 14:46 Pulse Ox 94 L 02/18/22 14:46 FiO2 21 02/17/22 07:30 Intake & Output 02/17/22 02/18/22 02/18/22 18:59 06:59 18:59 Output Total 600 Balance -600 Weight 54.431 kg Output: Urine 600 Other: Voiding Method Toilet # Voids 1 - Exam GENERAL EXAM: Alert, very pleasant 71-year-old male, on room air, comfortable in no apparent distress. HEAD: Normocephalic. EYES: Normal reaction of pupils, equal size. NOSE: Clear with pink turbinates. THROAT: No erythema or exudates. NECK: No masses, no JVD. CHEST: Right chest subcutaneous pneumothorax. Right sided Thora-vent removed. LUNGS: Equal air entry with no crackles, wheeze, rhonchi or dullness. CVS: S1 and S2 normal with no audible murmur, regular rhythm. ABDOMEN: No hepatosplenomegaly, normal bowel sounds, no guarding or rigidity. SPINE: No scoliosis or deformity SKIN: No rashes CENTRAL NERVOUS SYSTEM: No focal deficits, tone is normal in all 4 extremities. EXTREMITIES: There is no peripheral edema. No clubbing, no cyanosis. Peripheral pulses are intact. - Labs CBC & Chem 7: 02/16/22 08:36 02/16/22 08:36 Assessment and Plan Assessment: Acute right-sided chest pain and shortness of breath secondary to spontaneous right-sided pneumothorax, status post Thor-Vent placement and subsequent removal History of heavy chronic tobacco dependence however quit in 2011 History of marijuana use Chronic obstructive pulmonary disease Plan: The patient was seen and evaluated Chest x-ray, medications reviewed Thor vent removed, chest x-ray stable Cleared for discharge from the pulmonary standpoint Follow-up in the office in 1 week I have personally seen and examined the patient, performed the documentation and the assessment and plan as written. Number of minutes spent on the visit: 10.
--- NOTE | 2022-02-18 22:45 | P.DS ---
Providers Date of admission: 02/14/22 21:47 Attending physician: Brannon Mckee MD Consults: 02/14/22 21:47 Consult Physician Routine Consulting Provider: Kenrick Penaloza Consult Reason/Comments: Spontaneous pneumothorax, s/p Thoravent placement Do you want consulting provider notified?: Already Contacted 02/15/22 12:26 Consult Physician Routine Consulting Provider: Rylee Monterroso Consult Reason/Comments: Spontaneous pneumothorax, history of COPD Do you want consulting provider notified?: Yes Primary care physician: Natalie Noguera Hospital Course: Diagnoses: Right sided spontaneous pneumothorax. Status post right side thora-vent, which is removed now, repeat chest x-ray showing improvement with 1-2% pneumothorax History of COPD History of tobacco addiction Hospital course: History of present illness; patient is a 71-year-old gentleman with past medical history significant for COPD, history of tobacco addiction, GERD presented to the ER because of shortness of breath. Found to have a right pneumothorax, evaluated by pulmonary and cardiothoracic surgery team, he had chest tube she wished to Thora vent later on, today just x-ray showing improvement in patient's symptoms significantly improved with no chest pain dyspnea or coughing. Thora vent was removed and repeat chest x-ray still showing 1-2% of pneumothorax only. Subcutaneous emphysema is also noted which is expected given his of pne umothorax. Patient remains asymptomatic with no chest pain dyspnea, no abdominal pain vomiting, no urinary or new neurological symptoms. Patient saturating well on room air Patient was fit for discharge by pulmonary and cardiothoracic surgery team Problems and management plan were discussed with the patient and he verbalized understanding and acceptance Patient was found stable and can be discharged home in guarded prognosis however he needs follow-up as an outpatient. Patient was instructed to follow up with PCP Dr. Noguera within one week and patient agrees Patient was instructed to follow up with adult neurologist Dr. Kline in one week patient agrees Physical exam Gen: patient is a AAOx3, no distress CVS: S1-S2, RRR, no murmur Lungs: B/L CTA, no wheezing Abdomen: soft, no distention, no tenderness, positive bowel sounds Extremity: no leg edema or induration Time spent more than 35 minutes Patient Condition at Discharge: Stable Plan - Discharge Summary Discharge Rx Participant: No New Discharge Prescriptions: No Action No Known Home Medications Discharge Medication List No Known Home Medications 02/14/22 [History] Follow up Appointment(s)/Referral(s): Rylee Monterroso MD [STAFF PHYSICIAN] - 02/27/22 1:00 pm Natalie Noguera MD [Primary Care Provider] - 02/23/22 2:00 pm Kenrick Penaloza MD [STAFF PHYSICIAN] - As Needed Patient Instructions/Handouts: Spontaneous Pneumothorax (DC) Activity/Diet/Wound Care/Special Instructions: DISCHARGE INSTRUCTIONS: 1. No driving for 2 weeks, or until physician gives their ok. 2. No lifting, pushing, or pulling more than 10 pounds for 2 weeks. The physician will advise of any restriction changes. 3. Continue pain control per as needed orders. Alternate acetaminophen (Tylenol) and ibuprofen (Motrin/Advil) for pain. 4. Continue with incentive spirometry and splinting until otherwise directed by the physician. 5. Leave chest tube dressing for 48 hours. After that, remove all dressings and shower daily. 6. Routine incision care. No powders, lotions, ointments on incisions. Discharge Disposition: HOME SELF-CARE
== END 2022-02-18 17:17 | disposition home or self-care (01) | DRG 201 ==
LOC: EC 18:09 → 4SSUR 21:47
PROVIDERS: ADMIT Internal Medicine; ATTEND Internal Medicine
PROC: 0W9930Z Drainage of Right Pleural Cavity with Drainage Device, Percutaneous Approach (ICD-10-PCS; principal; 2022-02-14)
DX: J93.83 Other pneumothorax (principal); J44.9 Chronic obstructive pulmonary disease, unspecified; Z71.6 Tobacco abuse counseling; R09.02 Hypoxemia; F12.90 Cannabis use, unspecified, uncomplicated; E78.5 Hyperlipidemia, unspecified; K21.9 Gastro-esophageal reflux disease without esophagitis; Z98.1 Arthrodesis status; Z87.891 Personal history of nicotine dependence
CPT/HCPCS: 32551; 36415; 71045; 71046; 71250; 80053; 83735; 83880; 84484; 85025; 85027; 87635; 93005; 94640; 94760; 96374; 96375; 99291

== ENCOUNTER → 2022-08-31 | Outpatient (CLI) | payer MEDICARE ==
--- NOTE | 2022-08-31 13:57 | US ---
EXAMINATION TYPE: US thyroid st tissue head/neck DATE OF EXAM: 08/31/2022 COMPARISON: 01/17/2021 CLINICAL INDICATION: Male, 72 years old with history of E04.1 NONTOXIC SINGLE THYROID NODULE; Follow up nodule. GLAND SIZE: Right Lobe: 3.6 x 1.6 x 2.0 cm Overall Parenchyma: heterogenous Left Lobe: 3.1 x 1.6 x 1.8 cm Overall Parenchyma: heterogenous Isthmus Thickness: 0.3 cm NODULES RIGHT: # of nodules measured on right: 1 1. 0.9 x 0.9 x 0.5 cm, lower medial, Prior size: 0.9 x 0.5 x 1.1 cm TIRADS Score: 4 TIRADS Category 4: Moderately Suspicious Composition: Solid or almost completely solid (2 points). Echogenicity: Hypoechoic (2 points). Shape: Wider than tall (0 points). Margin: Smooth (0 points). Echogenic foci: None or large comet-tail artifacts (0 points) Recommendation: If >1.5cm: FNA; If >1cm: Follow up at 1,2, 3,5 years LEFT: # of nodules measured on left: 0 ISTHMUS: # of nodules measured in the isthmus: 0 Bilateral neck scanned, no evidence of lymphadenopathy. Posterior left lobe, complex lesion = 1.1 x 1.0 x 1.0 cm IMPRESSION: Stable right thyroid gland nodule which does not meet criteria for biopsy.
== END | disposition home or self-care (01) ==
LOC: RADUSWWP 13:20
PROVIDERS: ATTEND Otolaryngology
DX: E04.1 Nontoxic single thyroid nodule (principal)
CPT/HCPCS: 76536

== ENCOUNTER 2022-11-19 18:32 | Inpatient (IN) | payer MEDICARE ==
[2022-11-19] MEDS ORDERED: IPRATROPIUM-ALBUTEROL 3 ML NEB INHALATION STA (18:45)
[2022-11-19] MEDS ORDERED: methylPREDNISolone SOD SUCCI 125 MG/2 ML VIAL IV STA (18:51)
--- NOTE | 2022-11-19 19:07 | ED ---
General Adult HPI - General Source: patient, EMS Mode of arrival: EMS Limitations: no limitations <Munira Ruvalcaba - Last Filed: 11/19/22 22:35> <Julissa Lawrence - Last Filed: 11/20/22 04:01> - General Chief complaint: Shortness of Breath Stated complaint: COPD-ION Time Seen by Provider: 11/19/22 18:40 - History of Present Illness Initial comments: Patient is a 72-year-old male who presents the emergency department for difficulty breathing. Patient has history of COPD. He does not use supplemental oxygen at home. States he started to feel very short of breath today. He reports minimal dry cough. No fever or chills. No chest pain. No numbness or tingling. No nausea or vomiting. Denies history of cardiac disease. Patient was hypoxic in the ambulance satting in the 80s he was brought on 3 L nasal cannula given prednisone and a breathing treatment. (Munira Ruvalcaba) - Related Data Home Medications Medication Instructions Recorded Confirmed No Known Home Medications 02/14/22 11/19/22 Allergies Allergy/AdvReac Type Severity Reaction Status Date / Time No Known Allergies Allergy Verified 11/19/22 21:03 Review of Systems ROS Other: All systems not noted in ROS Statement are negative. <Munira Ruvalcaba - Last Filed: 11/19/22 22:35> ROS Other: All systems not noted in ROS Statement are negative. <Julissa Lawrence - Last Filed: 11/20/22 04:01> ROS Statement: Those systems with pertinent positive or pertinent negative responses have been documented in the HPI. Past Medical History Past Medical History: COPD, GERD/Reflux, Hyperlipidemia Additional Past Medical History / Comment(s): L4/L5 spinal fusion 1989, COPD, History of Any Multi-Drug Resistant Organisms: None Reported Additional Past Surgical History / Comment(s): vasectomy, L4/L5 spinal fusion 1989; "esophagus wrapped" for his GERD Past Anesthesia/Blood Transfusion Reactions: No Reported Reaction Past Psychological History: No Psychological Hx Reported Smoking Status: Former smoker Past Alcohol Use History: None Reported Past Drug Use History: Marijuana - Past Family History Brother(s) Family Medical History: AICD/Pacemaker <Munira Ruvalcaba - Last Filed: 11/19/22 22:35> General Exam Limitations: no limitations General appearance: alert, in distress (Retractions) Eye exam: Present: normal appearance, PERRL, EOMI. Absent: scleral icterus, conjunctival injection, periorbital swelling Respiratory exam: Present: accessory muscle use, decreased breath sounds. Absent: normal lung sounds bilaterally, respiratory distress, wheezes, rales, rhonchi, stridor Cardiovascular Exam: Present: normal rhythm, tachycardia, normal heart sounds. Absent: regular rate, systolic murmur, diastolic murmur, rubs, gallop, clicks Extremities exam: Present: normal inspection, full ROM, normal capillary refill. Absent: tenderness, calf tenderness Psychiatric exam: Present: normal affect, normal mood Skin exam: Present: warm, dry, intact, normal color. Absent: rash <Munira Ruvalcaba - Last Filed: 11/19/22 22:35> Course Vital Signs 11/19/22 11/19/22 11/19/22 18:40 19:40 20:00 Temperature 98.6 F Pulse Rate 103 H 101 H 101 H Respiratory 28 H 28 H Rate Blood Pressure 195/98 174/87 O2 Sat by Pulse 94 L 95 Oximetry Fraction of Inspired Oxygen (FIO2) 11/19/22 11/19/22 11/19/22 20:14 20:30 20:57 Temperature Pulse Rate 106 H 105 H 108 H Respiratory 30 H 30 H Rate Blood Pressure 160/88 O2 Sat by Pulse 96 83 L Oximetry Fraction of Inspired Oxygen (FIO2) 11/19/22 11/19/22 11/19/22 21:33 21:51 22:21 Temperature Pulse Rate 93 86 Respiratory 30 H 28 H Rate Blood Pressure 128/75 123/86 O2 Sat by Pulse 96 95 Oximetry Fraction of 40 Inspired Oxygen (FIO2) 11/19/22 11/20/22 11/20/22 23:19 00:37 01:24 Temperature Pulse Rate 85 96 Respiratory 25 H 21 Rate Blood Pressure 116/71 103/89 O2 Sat by Pulse 97 97 Oximetry Fraction of 35 Inspired Oxygen (FIO2) Medical Decision Making - Lab Data Result diagrams: 11/19/22 19:21 11/19/22 19:21 <Munira Ruvalcaba - Last Filed: 11/19/22 22:35> - Lab Data Result diagrams: 11/20/22 03:38 11/19/22 19:21 <Julissa Lawrence Last Filed: 11/20/22 04:01> - Medical Decision Making EKG taken at 18:58, interpreted by myself Sinus tachycardia, so ST changes Ventricular rate 100, AL interval 152, QRS duration 92, QTC 411 Was pt. sent in by a medical professional or institution (, PA, DISC PAD GRINDING MACHINE FEEDER, urgent care, hospital, or alf...) When possible be specific @ -No Did you speak to anyone other than the patient for history (EMS, parent, family, police, friend...)? What history was obtained from this source @ -No Did you review nursing and triage notes (agree or disagree)? Why? @ -I reviewed and agree with nursing and triage notes Were old charts reviewed (outside hosp., previous admission, EMS record, old EKG, old radiological studies, urgent care reports/EKG's, alf records)? Report findings @ -No old charts were reviewed Differential Diagnosis (chest pain, altered mental status, abdominal pain women, abdominal pain men, vaginal bleeding, weakness, fever, dyspnea, syncope, headache, dizziness, GI bleed, back pain, seizure, CVA, palpatations, mental health)? @ -Differential Dyspnea: Coronary syndrome, arrhythmia, tamponade, asthma, COPD, pulmonary embolism, pneumonia, pneumothorax, pulmonary effusion, anaphylaxis, diabetic ketoacidosis, flailed chest, pulmonary contusion, diaphragmatic rupture, anemia, neuromuscular, this is not meant to be an all-inclusive list. EKG interpreted by me (3pts min.). @ -As above X-rays interpreted by me (1pt min.). @ -COPD without acute process CT interpreted by me (1pt min.). @ -None done U/S interpreted by me (1pt. min.). @ -None done What testing was considered but not performed or refused? (CT, X-rays, U/S, labs)? Why? @ -None What meds were considered but not given or refused? Why? @ -None Did you discuss the management of the patient with other professionals (professionals i.e. , ANNE, DISC PAD GRINDING MACHINE FEEDER, lab, RT, psych nurse, social media editor, store promoter, teacher, geographic area intelligence officer, manager case)? Give summary @ -No Was smoking cessation discussed for >3mins.? @ -No Was critical care preformed (if so, how long)? @ -No Were there social determinants of health that impacted care today? How? (Homelessness, low income, unemployed, alcoholism, drug addiction, transportation, low edu. Level, literacy, decrease access to med. care, fpc, rehab)? @ -No Was there de-escalation of care discussed even if they declined (Discuss DNR or withdrawal of care, Hospice)? DNR status @ -No What co-morbidities impacted this encounter? (DM, HTN, Smoking, COPD, CAD, Cancer, CVA, ARF, Chemo, Hep., AIDS, mental health diagnosis, sleep apnea, morbid obesity)? @ -None Was patient admitted / discharged? Hospital course, mention meds given and route, prescriptions, significant lab abnormalities, going to OR and other pertinent info. @ -Patient presenting for dyspnea. Patient presents on 3 L nasal cannula satting at 93%. He is tachypneic at 30 with chest retractions. He is alert and oriented 4. Afebrile. He does not have chest pain. EKG shows sinus tachycardia and no ST changes. Troponin is bumped at 0.036. Patient given Solu-Medrol, breathing treatment. On reevaluation patient appears more lethargic although states his symptoms are improving. He was able to converse and answer questions. O2 dropped to 83% he was then placed on BiPAP. ABG reveals respiratory acidosis. Patient observed closely mentation and blood gas did improve after BiPAP. Case discussed with Dr. Mc. Patient will be admitted for further evaluation and management he is admitted in stable condition. Pulm on consult. Undiagnosed new problem with uncertain prognosis? @ -No Drug Therapy requiring intensive monitoring for toxicity (Heparin, Nitro, Insulin, Cardizem)? @ -No Were any procedures done? @ -No Diagnosis/symptom? @ -Dyspnea, hypoxia Acute, or Chronic, or Acute on Chronic? @ -Acute Uncomplicated (without systemic symptoms) or Complicated (systemic symptoms)? @ -Uncomplicated Side effects of treatment? @ -No Exacerbation, Progression, or Severe Exacerbation? @ No Poses a threat to life or bodily function? How? (Chest pain, [place], [place], pneumonia, PE, COPD, DKA, ARF, appy, cholecystitis, CVA, Diverticulitis, Homicidal, Suicidal, threat to staff... and all critical care pts) @ Yes Dr. Lawrence is my attending (Munira Ruvalcaba) Critical care time of 35 minutes due to BiPAP dependence with management vent settings (Julissa Lawrence) - Lab Data Lab Results 11/19/22 11/19/22 11/19/22 Range/Units 19:21 19:21 19:21 WBC 12.2 H (3.8-10.6) k/uL RBC 5.30 (4.30-5.90) m/uL Hgb 16.8 (13.0-17.5) gm/dL Hct 53.9 H (39.0-53.0) % MCV 101.7 H (80.0-100.0) fL MCH 31.6 (25.0-35.0) pg MCHC 31.1 (31.0-37.0) g/dL RDW 13.1 (11.5-15.5) % Plt Count 233 (150-450) k/uL MPV 9.5 Neutrophils % 80 % Lymphocytes % 10 % Monocytes % 6 % Eosinophils % 2 % Basophils % 0 % Neutrophils # 9.8 H (1.3-7.7) k/uL Lymphocytes # 1.2 (1.0-4.8) k/uL Monocytes # 0.8 (0-1.0) k/uL Eosinophils # 0.2 (0-0.7) k/uL Basophils # 0.1 (0-0.2) k/uL Hypochromasia Slight Macrocytosis Slight PT (9.0-12.0) sec INR (<1.2) APTT (22.0-30.0) sec D-Dimer (<0.60) mg/L FEU Sample Site ABG pH (7.35-7.45) ABG pCO2 (35-45) mmHg ABG pO2 (83-108) mmHg ABG HCO3 (21-25) mmol/L ABG Total CO2 (19-24) mmol/L ABG O2 Saturation (94-97) % ABG Base Excess mmol/L Dustin Test FiO2 % Sodium 138 (137-145) mmol/L Potassium 5.8 H (3.5-5.1) mmol/L Chloride 96 L (98-107) mmol/L Carbon Dioxide 37 H (22-30) mmol/L Anion Gap 5 mmol/L BUN 29 H (9-20) mg/dL Creatinine 0.74 (0.66-1.25) mg/dL Est GFR (CKD-EPI)AfAm >90 (>60 ml/min/1.73 sqM) Est GFR (CKD-EPI)NonAf >90 (>60 ml/min/1.73 sqM) Glucose 143 H (74-99) mg/dL Plasma Lactic Acid Melo (0.7-2.0) mmol/L Calcium 9.3 (8.4-10.2) mg/dL Total Bilirubin 0.9 (0.2-1.3) mg/dL AST 38 (17-59) U/L ALT 19 (4-49) U/L Alkaline Phosphatase 68 (38-126) U/L Troponin I (0.000-0.034) ng/mL Total Protein 7.7 (6.3-8.2) g/dL Albumin 4.0 (3.5-5.0) g/dL Influenza Type A (PCR) Not Detected (Not Detectd) Influenza Type B (PCR) Not Detected (Not Detectd) RSV (PCR) Not Detected (Not Detectd) SARS-CoV-2 (PCR) Not Detected (Not Detectd) 11/19/22 11/19/22 11/19/22 Range/Units 19:21 19:21 19:21 WBC (3.8-10.6) k/uL RBC (4.30-5.90) m/uL Hgb (13.0-17.5) gm/dL Hct (39.0-53.0) % MCV (80.0-100.0) fL MCH (25.0-35.0) pg MCHC (31.0-37.0) g/dL RDW (11.5-15.5) % Plt Count (150-450) k/uL MPV Neutrophils % % Lymphocytes % % Monocytes % % Eosinophils % % Basophils % % Neutrophils # (1.3-7.7) k/uL Lymphocytes # (1.0-4.8) k/uL Monocytes # (0-1.0) k/uL Eosinophils # (0-0.7) k/uL Basophils # (0-0.2) k/uL Hypochromasia Macrocytosis PT 11.3 (9.0-12.0) sec INR 1.1 (<1.2) APTT 22.9 (22.0-30.0) sec D-Dimer (<0.60) mg/L FEU Sample Site ABG pH (7.35-7.45) ABG pCO2 (35-45) mmHg ABG pO2 (83-108) mmHg ABG HCO3 (21-25) mmol/L ABG Total CO2 (19-24) mmol/L ABG O2 Saturation (94-97) % ABG Base Excess mmol/L Dustin Test FiO2 % Sodium (137-145) mmol/L Potassium (3.5-5.1) mmol/L Chloride (98-107) mmol/L Carbon Dioxide (22-30) mmol/L Anion Gap mmol/L BUN (9-20) mg/dL Creatinine (0.66-1.25) mg/dL Est GFR (CKD-EPI)AfAm (>60 ml/min/1.73 sqM) Est GFR (CKD-EPI)NonAf (>60 ml/min/1.73 sqM) Glucose (74-99) mg/dL Plasma Lactic Acid Melo 1.6 (0.7-2.0) mmol/L Calcium (8.4-10.2) mg/dL Total Bilirubin (0.2-1.3) mg/dL AST (17-59) U/L ALT (4-49) U/L Alkaline Phosphatase (38-126) U/L Troponin I 0.036 H* (0.000-0.034) ng/mL Total Protein (6.3-8.2) g/dL Albumin (3.5-5.0) g/dL Influenza Type A (PCR) (Not Detectd) Influenza Type B (PCR) (Not Detectd) RSV (PCR) (Not Detectd) SARS-CoV-2 (PCR) (Not Detectd) 11/19/22 11/19/22 Range/Units 19:21 21:14 WBC (3.8-10.6) k/uL RBC (4.30-5.90) m/uL Hgb (13.0-17.5) gm/dL Hct (39.0-53.0) % MCV (80.0-100.0) fL MCH (25.0-35.0) pg MCHC (31.0-37.0) g/dL RDW (11.5-15.5) % Plt Count (150-450) k/uL MPV Neutrophils % % Lymphocytes % % Monocytes % % Eosinophils % % Basophils % % Neutrophils # (1.3-7.7) k/uL Lymphocytes # (1.0-4.8) k/uL Monocytes # (0-1.0) k/uL Eosinophils # (0-0.7) k/uL Basophils # (0-0.2) k/uL Hypochromasia Macrocytosis PT (9.0-12.0) sec INR (<1.2) APTT (22.0-30.0) sec D-Dimer 0.45 (<0.60) mg/L FEU Sample Site L RAD ABG pH 7.17 L* (7.35-7.45) ABG pCO2 104 H* (35-45) mmHg ABG pO2 70 L (83-108) mmHg ABG HCO3 38 H (21-25) mmol/L ABG Total CO2 41 H (19-24) mmol/L ABG O2 Saturation 88.0 L (94-97) % ABG Base Excess 9.2 mmol/L Dustin Test Yes FiO2 36 % Sodium (137-145) mmol/L Potassium (3.5-5.1) mmol/L Chloride (98-107) mmol/L Carbon Dioxide (22-30) mmol/L Anion Gap mmol/L BUN (9-20) mg/dL Creatinine (0.66-1.25) mg/dL Est GFR (CKD-EPI)AfAm (>60 ml/min/1.73 sqM) Est GFR (CKD-EPI)NonAf (>60 ml/min/1.73 sqM) Glucose (74-99) mg/dL Plasma Lactic Acid Melo (0.7-2.0) mmol/L Calcium (8.4-10.2) mg/dL Total Bilirubin (0.2-1.3) mg/dL AST (17-59) U/L ALT (4-49) U/L Alkaline Phosphatase (38-126) U/L Troponin I (0.000-0.034) ng/mL Total Protein (6.3-8.2) g/dL Albumin (3.5-5.0) g/dL Influenza Type A (PCR) (Not Detectd) Influenza Type B (PCR) (Not Detectd) RSV (PCR) (Not Detectd) SARS-CoV-2 (PCR) (Not Detectd) Disposition <Munira Ruvalcaba - Last Filed: 11/19/22 22:35> <Julissa Lawrence - Last Filed: 11/20/22 04:01> Clinical Impression: Dyspnea, Hypoxic Disposition: ADMITTED IP TO THIS HOSP Condition: Serious
[2022-11-19 19:49] LABS: Basophils # (A) 0.1 k/uL (0-0.2); Basophils % (A) 0 %; Eosinophils # (A) 0.2 k/uL (0-0.7); Eosinophils % (A) 2 %; HCT 53.9 % (39.0-53.0); HGB 16.8 gm/dL (13.0-17.5); Hypochromasia Slight; Lymphocytes # (A) 1.2 k/uL (1.0-4.8); Lymphocytes % (A) 10 %; MCH 31.6 pg (25.0-35.0); MCHC 31.1 g/dL (31.0-37.0); MCV 101.7 fL (80.0-100.0); Macrocytosis Slight; Mean Platelet Volume 9.5; Monocytes # (A) 0.8 k/uL (0-1.0); Monocytes % (A) 6 %; Neutrophils # (A) 9.8 k/uL (1.3-7.7); Neutrophils % (A) 80 %; Platelet Count 233 k/uL (150-450); RDW 13.1 % (11.5-15.5); WBC 12.2 k/uL (3.8-10.6)
[2022-11-19 19:50] LABS: ALT 19 U/L (4-49); African American GFR (CKD) >90 (>60 ml/min/1.73 sqM); Anion Gap 5 mmol/L; Blood Urea Nitrogen 29 mg/dL (9-20); Calcium 9.3 mg/dL (8.4-10.2); Carbon Dioxide 37 mmol/L (22-30); Chloride 96 mmol/L (98-107); Glucose 143 mg/dL (74-99); Non-African American GFR(CKD) >90 (>60 ml/min/1.73 sqM); Sodium 138 mmol/L (137-145); Total Bilirubin 0.9 mg/dL (0.2-1.3)
[2022-11-19 19:54] LABS: Potassium 5.8 mmol/L (3.5-5.1); Total Protein 7.7 g/dL (6.3-8.2)
[2022-11-19 19:55] LABS: AST 38 U/L (17-59); Alkaline Phosphatase 68 U/L (38-126)
[2022-11-19 20:02] LABS: INR 1.1 (<1.2); Partial Thromboplastin Time 22.9 sec (22.0-30.0); Prothrombin Time 11.3 sec (9.0-12.0)
[2022-11-19] MEDS ORDERED: ASPIRIN 325 MG TAB PO STA (20:09)
--- NOTE | 2022-11-19 20:17 | XR ---
EXAM: XR Chest, 2 Views CLINICAL HISTORY: ITS.REASON XR Reason: dyspnea TECHNIQUE: Frontal and lateral views of the chest. COMPARISON: No relevant prior studies available. FINDINGS: Lungs: Hyperinflation. Flattening of the diaphragms. Correlate for COPD. No focal infiltrate, pleural effusion, or pneumothorax. Pleural space: See above. Heart: Unremarkable. No cardiomegaly. Mediastinum: Unremarkable. Bones/joints: Unremarkable. IMPRESSION: 1. No focal infiltrate, pleural effusion, or pneumothorax. 2. Hyperinflation. Flattening of the diaphragms. Correlate for COPD.
[2022-11-19 21:19] LABS: ABG Base Excess 9.2 mmol/L; ABG HCO3 38 mmol/L (21-25); ABG PO2 70 mmHg (83-108); ABG TCO2 41 mmol/L (19-24); Allen Test Performed? Yes
[2022-11-19] MEDS ORDERED: NALOXONE 0.4 MG/ML 1 ML VIAL IV PRN (21:24)
[2022-11-19 21:25] LABS: ABG PCO2 104 mmHg (35-45); ABG PH 7.17 (7.35-7.45)
[2022-11-19 21:59] LABS: ABG Base Excess 9.3 mmol/L; ABG HCO3 38 mmol/L (21-25); ABG PO2 89 mmHg (83-108); ABG TCO2 41 mmol/L (19-24); Allen Test Performed? Yes
[2022-11-19 22:02] LABS: ABG PH 7.18 (7.35-7.45)
[2022-11-19 22:03] LABS: ABG PCO2 100 mmHg (35-45)
[2022-11-20 01:31] LABS: ABG PH 7.28 (7.35-7.45); Allen Test Performed? Yes
[2022-11-20 01:32] LABS: ABG PCO2 76 mmHg (35-45); ABG PO2 125 mmHg (83-108)
[2022-11-20 01:33] LABS: ABG HCO3 36 mmol/L (21-25); ABG TCO2 38 mmol/L (19-24)
[2022-11-20] MEDS ORDERED: HEPARIN SODIUM 1,000 UN/ML (10ML VL) IV PRN (01:43)
[2022-11-20] MEDS ORDERED: HEPARIN SODIUM 1,000 UN/ML (10ML VL) IV ONE (01:43)
[2022-11-20 03:56] LABS: Basophils % (A) 0 %; Eosinophils # (A) 0.1 k/uL (0-0.7); Eosinophils % (A) 0 %; HCT 51.5 % (39.0-53.0); HGB 15.9 gm/dL (13.0-17.5); Hypochromasia Slight; Lymphocytes # (A) 0.4 k/uL (1.0-4.8); Lymphocytes % (A) 4 %; MCH 31.5 pg (25.0-35.0); MCHC 30.8 g/dL (31.0-37.0); MCV 102.5 fL (80.0-100.0); Macrocytosis Slight; Monocytes # (A) 0.4 k/uL (0-1.0); Monocytes % (A) 4 %; Neutrophils # (A) 9.4 k/uL (1.3-7.7); Neutrophils % (A) 91 %; Platelet Count 230 k/uL (150-450); RBC 5.02 m/uL (4.30-5.90); RDW 12.8 % (11.5-15.5); WBC 10.4 k/uL (3.8-10.6)
[2022-11-20 04:02] LABS: Prothrombin Time 10.9 sec (9.0-12.0)
[2022-11-20] MEDS: HEPARIN SOD,PORK IN 0.45% NACL 25,000 UNIT in 0.45% NACL 1 250ML.BAG IV SCH ×2 (05:40→18:20)
[2022-11-20] MEDS ORDERED: HEPARIN SODIUM,PORCINE 10,000 UNIT in SODIUM CHLORIDE 0.9% 1,000 ML IRRIGATION PRN (07:00)
[2022-11-20] MEDS ORDERED: HEPARIN SODIUM,PORCINE (1 ML) 2,500 UNIT in SODIUM CHLORIDE 0.9% 250 ML IRRIGATION PRN (07:00)
[2022-11-20] MEDS ORDERED: ACETAMINOPHEN TAB 325 MG TAB PO PRN (09:09)
[2022-11-20] MEDS ORDERED: BENZONATATE 100 MG CAP PO PRN (09:09)
[2022-11-20] MEDS ORDERED: methylPREDNISolone SOD SUCCI 40 MG/ML 1 ML VIAL IV SCH (09:15)
[2022-11-20] MEDS ORDERED: SODIUM ZIRCONIUM CYCLOSILICATE 10 GM PACKET PO ONE (09:17)
[2022-11-20] MEDS ORDERED: CALCIUM GLUCONATE IN NACL 1 GM in SALINE 1 100ML.BAG IVPB ONE (09:17)
[2022-11-20] MEDS: guaiFENesin 600 MG TABLET.ER PO SCH ×2 (09:26→20:59)
[2022-11-20] MEDS ORDERED: AZITHROMYCIN 500 MG in SODIUM CHLORIDE 0.9% 250 ML IVPB SCH (09:30)
[2022-11-20 10:02] LABS: African American GFR (CKD) >90 (>60 ml/min/1.73 sqM); Blood Urea Nitrogen 40 mg/dL (9-20); Calcium 9.2 mg/dL (8.4-10.2); Chloride 96 mmol/L (98-107); Glucose 123 mg/dL (74-99); Non-African American GFR(CKD) 85 (>60 ml/min/1.73 sqM); Potassium 5.8 mmol/L (3.5-5.1); Sodium 137 mmol/L (137-145)
[2022-11-20 10:08] LABS: Anion Gap 9 mmol/L
[2022-11-20 10:18] LABS: Carbon Dioxide 32 mmol/L (22-30)
[2022-11-20] MEDS: predniSONE 20 MG TAB PO SCH (11:36)
--- NOTE | 2022-11-20 11:42 | P.CNPUL ---
History of Present Illness Consult date: 11/20/22 Requesting physician: Rachael Mc Reason for consult: dyspnea, COPD Chief complaint: Shortness of breath. History of present illness: Pulmonary consult dated 11/20/2022. 72-year-old male seen in the emergency department, on November 19, complaining of shortness of breath. The patient does have a history of long-standing COPD. He does not use home oxygen. He is not a particularly good historian, but apparently developed shortness of breath, the day prior to his admission to the emergency department. He had minimal dry cough. No fever or chills. No chest pain or chest discomfort. The patient apparently had saturations in the 80s, when he was seen by EMS. He was brought into the emergency department, given breathing treatments and oxygen. He is seen today in room 361. He is a very poor historian. He apparently was on BiPAP, with settings of 14/6, and 35%. He's currently on IV heparin for an elevated troponin level. White count 10.4, hemoglobin 15.9, hematocrit 51.5, and platelet count is normal. Initial blood gases showed a pO2 of 89, pCO2 of 100, and pH is 7.18. Subsequent blood gases show pO2 125, pCO2 76, and pH is 7.28. I suspect the second blood gas, is when the patient was on BiPAP therapy. Sodium 137, potassium 5.8, chlorides 96, CO2 32, BUN 40, creatinine 0.91. Troponins were 0.409 and 0.648. Chest x-ray showed changes of COPD, with no acute abnormalities. Review of Systems REVIEW OF SYSTEMS: CONSTITUTIONAL: [Negative.] NEUROLOGIC: [ Negative.] HEENT: [ Negative.] CARDIAC: [Negative.] PULMONARY: Shortness of breath. GI: [Negative.] : [Negative.] RHEUMATOLOGIC: [ Negative.] IMMUNOLOGIC: [ Negative.] ENDOCRINE: [Negative. ] DERMATOLOGIC: [Negative.] Past Medical History Past Medical History: COPD, GERD/Reflux, Hyperlipidemia Additional Past Medical History / Comment(s): L4/L5 spinal fusion 1989, COPD, History of Any Multi-Drug Resistant Organisms: None Reported Additional Past Surgical History / Comment(s): vasectomy, L4/L5 spinal fusion 1989; "esophagus wrapped" for his GERD Past Anesthesia/Blood Transfusion Reactions: No Reported Reaction Past Psychological History: No Psychological Hx Reported Smoking Status: Former smoker Past Alcohol Use History: None Reported Additional Past Alcohol Use History / Comment(s): reports he quit drinking when he had his back surgery Past Drug Use History: Marijuana Additional Drug Use History / Comment(s): occasional marijuana (smokes it) - Past Family History Brother(s) Family Medical History: AICD/Pacemaker Medications and Allergies Home Medications Medication Instructions Recorded Confirmed Type No Known Home Medications 02/14/22 11/19/22 History Allergies Allergy/AdvReac Type Severity Reaction Status Date / Time No Known Allergies Allergy Verified 11/19/22 21:03 Physical Exam Osteopathic Statement: *. No significant issues noted on an osteopathic structural exam other than those noted in the History and Physical/Consult. Vitals: Vital Signs Temp Pulse Pulse Resp BP BP Pulse Ox 11/20/22 09:05 11/20/22 09:00 11/20/22 08:00 98.8 F 80 22 100/65 95 11/20/22 04:00 98.9 F 85 20 105/72 94 L 11/20/22 02:30 20 11/20/22 02:27 116 H 22 108/64 92 L 11/20/22 01:24 11/20/22 00:37 96 21 103/89 97 11/19/22 23:19 85 25 H 116/71 97 11/19/22 22:21 86 28 H 123/86 95 11/19/22 21:51 93 30 H 128/75 96 11/19/22 21:33 11/19/22 20:57 108 H 30 H 83 L 11/19/22 20:30 105 H 30 H 160/88 96 11/19/22 20:14 106 H 11/19/22 20:00 101 H 11/19/22 19:40 101 H 28 H 174/87 95 11/19/22 18:40 98.6 F 103 H 28 H 195/98 94 L FiO2 11/20/22 09:05 35 11/20/22 09:00 35 11/20/22 08:00 35 11/20/22 04:00 11/20/22 02:30 11/20/22 02:27 11/20/22 01:24 35 11/20/22 00:37 11/19/22 23:19 11/19/22 22:21 11/19/22 21:51 11/19/22 21:33 40 11/19/22 20:57 11/19/22 20:30 11/19/22 20:14 11/19/22 20:00 11/19/22 19:40 11/19/22 18:40 Intake and Output 11/19/22 11/20/22 11/20/22 22:59 06:59 14:59 Output Total 200 Balance -200 Output: Urine 200 Other: Voiding Method Urinal Urinal Weight 54.431 kg 52.5 kg 52.5 kg No acute distress, oriented 3. Currently on room air. Saturations are adequate. HEENT examination is grossly unremarkable. Mucous membranes are moist. No oral lesions. Neck supple. Full range of motion. No adenopathy thyromegaly or neck vein distention. Cardiovascular examination reveals regular rhythm rate. S1-S2 normal. No S3 or S4. No discernible murmur noted. Heart sounds are distant. Heart rate 80 bpm. Lungs reveal diffuse bilateral expiratory rhonchi and wheezes. Saturations are in the mid 90s. Abdomen soft bowel sounds are heard. No masses or tenderness. Extremities are intact. No cyanosis clubbing or edema. Skin is without rash or lesion. Neurologic examination is brief but nonfocal. Results - Laboratory Findings CBC and BMP: 11/20/22 03:38 11/20/22 08:44 ABG ABG pH 7.28 (7.35-7.45) L 11/20/22 01:18 ABG pCO2 76 mmHg (35-45) H* 11/20/22 01:18 ABG pO2 125 mmHg (83-108) H 11/20/22 01:18 ABG O2 Saturation 99.0 % (94-97) H 11/20/22 01:18 PT/INR, D-dimer PT 10.9 sec (9.0-12.0) 11/20/22 03:38 INR 1.0 (<1.2) 11/20/22 03:38 D-Dimer 0.45 mg/L FEU (<0.60) 11/19/22 19:21 Abnormal lab findings: Abnormal Labs 11/19/22 11/19/22 11/19/22 19:21 19:21 19:21 WBC 12.2 H Hct 53.9 H MCV 101.7 H MCHC Neutrophils # 9.8 H Lymphocytes # APTT ABG pH ABG pCO2 ABG pO2 ABG HCO3 ABG Total CO2 ABG O2 Saturation Potassium 5.8 H Chloride 96 L Carbon Dioxide 37 H BUN 29 H Glucose 143 H Troponin I 0.036 H* 11/19/22 11/19/22 11/19/22 21:14 21:56 23:57 WBC Hct MCV MCHC Neutrophils # Lymphocytes # APTT ABG pH 7.17 L* 7.18 L* ABG pCO2 104 H* 100 H* ABG pO2 70 L ABG HCO3 38 H 38 H ABG Total CO2 41 H 41 H ABG O2 Saturation 88.0 L 93.0 L Potassium Chloride Carbon Dioxide BUN Glucose Troponin I 0.409 H* 11/20/22 11/20/22 11/20/22 01:18 03:38 03:38 WBC Hct MCV 102.5 H MCHC 30.8 L Neutrophils # 9.4 H Lymphocytes # 0.4 L APTT ABG pH 7.28 L ABG pCO2 76 H* ABG pO2 125 H ABG HCO3 36 H ABG Total CO2 38 H ABG O2 Saturation 99.0 H Potassium Chloride Carbon Dioxide BUN Glucose Troponin I 0.648 H* 11/20/22 11/20/22 08:44 08:44 WBC Hct MCV MCHC Neutrophils # Lymphocytes # APTT 68.4 H ABG pH ABG pCO2 ABG pO2 ABG HCO3 ABG Total CO2 ABG O2 Saturation Potassium 5.8 H Chloride 96 L Carbon Dioxide 32 H BUN 40 H Glucose 123 H Troponin I - Diagnostic Findings Chest x-ray: image reviewed Assessment and Plan Assessment: Acute hypoxemic respiratory failure, secondary to COPD exacerbation. History of heavy and previous tobacco use. Gastroesophageal reflux disease. History of hyperlipidemia. L4/L5 spinal fusion. Plan: Plan dated 11/20/2022. The patient's Solu-Medrol was converted to prednisone 40 mg a day. The Symbicort is increased to 160/4.5, 2 puffs twice a day. The patient continues on IV heparin, until he is seen by cardiology. He is also receiving albuterol sulfate and ipratropium bromide. Azithromycin is changed from IV to by mouth. In addition, check a pro-calcitonin level. The patient may not need any antibiotic at all. Prognosis is guarded. Labs, x-rays, and medications are reviewed. Time with Patient: Greater than 30
[2022-11-20] MEDS ORDERED: ALPRAZolam 0.5 MG TAB PO PRN (11:48)
[2022-11-20] MEDS ORDERED: ASPIRIN 325 MG TAB PO STA (11:48)
[2022-11-20] MEDS ORDERED: ATORVASTATIN 80 MG TAB PO STA (11:48)
[2022-11-20] MEDS ORDERED: ALPRAZolam 0.25 MG TAB PO PRN (11:48)
[2022-11-20] MEDS ORDERED: NITROGLYCERIN SL TABS 0.4 MG TAB SUBLINGUAL PRN (11:48)
--- NOTE | 2022-11-20 11:55 | P.CRDCN ---
History of Present Illness History of present illness: HISTORY OF PRESENTING ILLNESS Patient is pleasant 72-year-old male with history of COPD, GERD, some medical noncompliance with patient not taking any medications however states he cannot afford medications, coronary artery calcifications, prior pneumothorax who presents secondary to shortness breath. He cannot recall all the details around when he presented however was having significant dyspnea and admits this has been going on for the past few weeks. He denies any chest pain around this episode however states at home he will get intermittent episodes of chest pain not necessarily associated with exertion. He was noted to have significantly elevated pCO2 100 and then down to 76 and had been placed on BiPAP. BUN 40 and creatinine 0.9. Troponins 0.02, 0.4, 0.64. He denies any prior history of CAD. He previously smoked however has not and a number of years, no alcohol, occ asional marijuana. Family history of brother who from some form of cardiac issue possible arrhythmia. REVIEW OF SYSTEMS At the time of my exam: CONSTITUTIONAL: Denies fever or chills. CARDIOVASCULAR: +intermittent chest pain, +chronic shortness of breath, no orthopnea, PND or palpitations. RESPIRATORY: Denies cough. GASTROINTESTINAL: Denies abdominal pain, diarrhea, constipation, nausea or vomiting. MUSCULOSKELETAL: Denies myalgias. NEUROLOGIC: Denies numbness, tingling or weakness. ENDOCRINE: Denies fatigue, weight change, polydipsia or polyurina. GENITOURINARY: Denies burning, hematuria or urgency with micturation. HEMATOLOGIC: Denies history of anemia or bleeding. PHYSICAL EXAMINATION Vital signs reviewed. CONSTITUTIONAL: No apparent distress, chronically ill appearing. HEENT: Head is normocephalic. Pupils are equal, round. Sclerae anicteric. Mucous membranes of the mouth are moist. No JVD. No carotid bruit. CHEST EXAMINATION: Lungs are clear to auscultation. No chest wall tenderness is noted on palpation or with deep breathing. HEART EXAMINATION: Regular rate and rhythm. S1, S2 heard. No murmurs, gallops or rub. ABDOMEN: Soft, nontender. Positive bowel sounds. EXTREMITIES: 2+ peripheral pulses, no lower extremity edema and no calf tenderness. NEUROLOGIC EXAMINATION: Patient is awake, alert and oriented x3. ASSESSMENT 1. Non-STEMI, may be related to hypoxia, respiratory failure 2. Acute on chronic hypoxic and hypercarbic respiratory failure, likely mainly related to COPD 3. COPD 4. Intermittent episodes of chest pain at home 5. Coronary artery calcifications noted on prior CT 6. Prior history of pneumothorax 7. Medical noncompliance, unable to afford some medications PLAN Patient's presentation mainly appears related to COPD and hypoxia however significant elevated troponins and multiple risk factors with additional coronary artery calcifications noted on CT. We will check 2-D echo. Continue heparin drip. Aspirin. Discussed definitive evaluation with heart catheterization patient agreeable. Further recommendations to follow. Past Medical History Past Medical History: COPD, GERD/Reflux, Hyperlipidemia Additional Past Medical History / Comment(s): L4/L5 spinal fusion 1989, COPD, History of Any Multi-Drug Resistant Organisms: None Reported Additional Past Surgical History / Comment(s): vasectomy, L4/L5 spinal fusion 1989; "esophagus wrapped" for his GERD Past Anesthesia/Blood Transfusion Reactions: No Reported Reaction Past Psychological History: No Psychological Hx Reported Smoking Status: Former smoker Past Alcohol Use History: None Reported Additional Past Alcohol Use History / Comment(s): reports he quit drinking when he had his back surgery Past Drug Use History: Marijuana Additional Drug Use History / Comment(s): occasional marijuana (smokes it) - Past Family History Brother(s) Family Medical History: AICD/Pacemaker Medications and Allergies Home Medications Medication Instructions Recorded Confirmed Type No Known Home Medications 02/14/22 11/19/22 History Allergies Allergy/AdvReac Type Severity Reaction Status Date / Time No Known Allergies Allergy Verified 11/19/22 21:03 Physical Exam Vitals: Vital Signs Temp Pulse Pulse Resp BP BP Pulse Ox 11/20/22 09:05 11/20/22 09:00 11/20/22 08:00 98.8 F 80 22 100/65 95 11/20/22 04:00 98.9 F 85 20 105/72 94 L 11/20/22 02:30 20 11/20/22 02:27 116 H 22 108/64 92 L 11/20/22 01:24 11/20/22 00:37 96 21 103/89 97 11/19/22 23:19 85 25 H 116/71 97 11/19/22 22:21 86 28 H 123/86 95 11/19/22 21:51 93 30 H 128/75 96 11/19/22 21:33 11/19/22 20:57 108 H 30 H 83 L 11/19/22 20:30 105 H 30 H 160/88 96 11/19/22 20:14 106 H 11/19/22 20:00 101 H 11/19/22 19:40 101 H 28 H 174/87 95 11/19/22 18:40 98.6 F 103 H 28 H 195/98 94 L FiO2 11/20/22 09:05 35 11/20/22 09:00 35 11/20/22 08:00 35 11/20/22 04:00 11/20/22 02:30 11/20/22 02:27 11/20/22 01:24 35 11/20/22 00:37 11/19/22 23:19 11/19/22 22:21 11/19/22 21:51 11/19/22 21:33 40 11/19/22 20:57 11/19/22 20:30 11/19/22 20:14 11/19/22 20:00 11/19/22 19:40 11/19/22 18:40 Intake and Output 11/19/22 11/20/22 11/20/22 22:59 06:59 14:59 Output Total 200 Balance -200 Output: Urine 200 Other: Voiding Method Urinal Urinal Weight 54.431 kg 52.5 kg 52.5 kg Results 11/20/22 03:38 11/20/22 08:44 Cardiac Enzymes 11/19/22 11/19/22 11/19/22 Range/Units 19:21 19:21 23:57 AST 38 (17-59) U/L Troponin I 0.036 H* 0.409 H* (0.000-0.034) ng/mL 11/20/22 Range/Units 03:38 AST (17-59) U/L Troponin I 0.648 H* (0.000-0.034) ng/mL Coagulation 11/19/22 11/20/22 11/20/22 Range/Units 19:21 03:38 08:44 PT 11.3 10.9 (9.0-12.0) sec APTT 22.9 25.0 68.4 H (22.0-30.0) sec CBC 11/19/22 11/20/22 Range/Units 19:21 03:38 WBC 12.2 H 10.4 (3.8-10.6) k/uL RBC 5.30 5.02 (4.30-5.90) m/uL Hgb 16.8 15.9 (13.0-17.5) gm/dL Hct 53.9 H 51.5 (39.0-53.0) % Plt Count 233 230 (150-450) k/uL Comprehensive Metabolic Panel 11/19/22 11/20/22 Range/Units 19:21 08:44 Sodium 138 137 (137-145) mmol/L Potassium 5.8 H 5.8 H (3.5-5.1) mmol/L Chloride 96 L 96 L (98-107) mmol/L Carbon Dioxide 37 H 32 H (22-30) mmol/L BUN 29 H 40 H (9-20) mg/dL Creatinine 0.74 0.91 (0.66-1.25) mg/dL Glucose 143 H 123 H (74-99) mg/dL Calcium 9.3 9.2 (8.4-10.2) mg/dL AST 38 (17-59) U/L ALT 19 (4-49) U/L Alkaline Phosphatase 68 (38-126) U/L Total Protein 7.7 (6.3-8.2) g/dL Albumin 4.0 (3.5-5.0) g/dL Current Medications Generic Name Dose Route Start Last Admin Trade Name Freq PRN Reason Stop Dose Admin Acetaminophen 650 mg 11/20/22 09:09 Acetaminophen Tab 325 Mg Tab PO Q4HR PRN Mild Pain or Fever > 100.5 Albuterol/Ipratropium 3 ml 11/19/22 22:58 Ipratropium-Albuterol 3 Ml Neb INHALATION RT-Q2H PRN Shortness Of Breath Or Wheezing Alprazolam 0.25 mg 11/20/22 11:48 Alprazolam 0.25 Mg Tab PO Q6HR PRN Mild Anxiety Alprazolam 0.5 mg 11/20/22 11:48 Alprazolam 0.5 Mg Tab PO Q6HR PRN Moderate Anxiety Azithromycin 500 mg 11/21/22 09:00 Azithromycin 500 Mg Tab PO 11/23/22 09:01 DAILY LEDY Protocol Benzonatate 100 mg 11/20/22 09:09 Benzonatate 100 Mg Cap PO TID PRN Cough Budesonide/Formoterol Fumarate 2 puff 11/20/22 20:00 Symbicort 160-4.5 Mcg Inhaler INHALATION RT-BID LEDY Guaifenesin 600 mg 11/20/22 09:15 11/20/22 09:26 Guaifenesin 600 Mg Tablet.Er PO 600 mg Q12HR LEDY Administration Heparin Sodium (Porcine) 0 unit 11/20/22 01:43 Heparin Sodium 1,000 Un/Ml (10ml Vl) IV PER PROTOCOL PRN Low PTT Protocol Heparin Sodium/Sodium Chloride 250 mls @ 6.532 mls/hr 11/20/22 01:45 11/20/22 05:40 25,000 unit/ Sodium Chloride IV 12 units/kg/hr .Q24H LEDY 6.532 mls/hr Administration Protocol 12 UNITS/KG/HR Heparin Sodium (Porcine) 10, 1,001 mls @ 999 mls/hr 11/21/22 07:00 000 unit/ Sodium Chloride IRRIGATION 11/21/22 23:00 ONCE PRN INTRA-OP Heparin Sodium (Porcine) 2,500 250.5 mls @ 250 mls/hr 11/21/22 07:00 unit/ Sodium Chloride IRRIGATION 11/21/22 23:00 ONCE PRN INTRA-OP Sodium Chloride 1,000 ml/ IV 1,000 mls @ 52.5 mls/hr 11/20/22 12:00 Solution IV .Q19H3M LEDY 1 ML/KG/HR Naloxone HCl 0.2 mg 11/19/22 21:24 Naloxone 0.4 Mg/Ml 1 Ml Vial IV Q2M PRN Opioid Reversal Nitroglycerin 0.4 mg 11/20/22 11:48 Nitroglycerin Sl Tabs 0.4 Mg Tab SUBLINGUAL Q5M PRN Chest Pain Prednisone 40 mg 11/20/22 10:30 11/20/22 11:36 Prednisone 20 Mg Tab PO 40 mg DAILY LEDY Administration Intake and Output 11/19/22 11/20/22 11/20/22 22:59 06:59 14:59 Output Total 200 Balance -200 Output: Urine 200 Other: Voiding Method Urinal Urinal Weight 54.431 kg 52.5 kg 52.5 kg Patient Weight 11/21/22 06:59 Weight 52.5 kg 11/20/22 03:38 11/20/22 08:44
[2022-11-20] MEDS ORDERED: SODIUM CHLORIDE 0.9% 1,000 ML in EMPTY BAG 1 BAG IV SCH (12:00)
[2022-11-20] MEDS ORDERED: INSULIN REGULAR 100 UNIT/ML VIAL (IV) IV ONE (12:42)
[2022-11-20] MEDS ORDERED: SODIUM BICARB 8.4% 50 ML SYR (1 MEQ/ML) IV ONE (12:42)
[2022-11-20] MEDS ORDERED: DEXTROSE 50% SYRINGE 50 ML IVP ONE ×2 (12:42→14:32)
--- NOTE | 2022-11-20 12:45 | P.HPIM ---
History of Present Illness H&P Date: 11/20/22 Chief Complaint: Shortness of breath * 72-year-old gentleman with past medical history significant for COPD, per chart review how the patient not on any medications previous hospitalization in 2021 with documented diagnoses of COPD, was seen by pulmonary medicine for shortness of breath right-sided pneumothorax and had poor vent placement, presented to the emergency department with complaints of repeat episode of shortness of breath * Patient was noted to be in acute distress having difficulty in breathing dry cough. Patienton noninvasive ventilation/BiPAP secondary to hypoxia at the time of presentation patient was placed on 3 L of oxygen and he does not use oxygen at home * Workup initiated in ER included CBC which showed white blood cell count of 12.2, platelet count within normal limits. PT/INR within normal limits * A d-dimer was checked which was negative * Basic blood work obtained showed acute hyperkalemia with potassium of 5.8, creatinine of 0.74. Troponin obtained 0.409, serum lactate of 1.6 * Tested negative for Covid and influenza * Chest x-ray obtained showed no focal infiltrate or pneumothorax hyperinflation noted changes consistent with COPD REVIEW OF SYSTEMS: Shortness of breath, cough CONSTITUTIONAL: No fever, no malaise, no fatigue. HEENT: No recent visual problems or hearing problems. Denied any sore throat. CARDIOVASCULAR: No chest pain, orthopnea, PND, no palpitations, no syncope. PULMONARY: Shortness of breath, cough GASTROINTESTINAL: No diarrhea, no nausea, no vomiting, no abdominal pain. NEUROLOGICAL: No headaches, no weakness, no numbness. HEMATOLOGICAL: Denies any bleeding or petechiae. GENITOURINARY: Denies any burning micturition, frequency, or urgency. MUSCULOSKELETAL/RHEUMATOLOGICAL: Denies any joint pain, swelling, or any muscle pain. ENDOCRINE: Denies any polyuria or polydipsia. PHYSICAL EXAMINATION: GENERAL: The patient is alert and oriented x3, not in any acute distress. Ill appearance, nasal cannula in place HEENT: Pupils are round and equally reacting to light. EOMI. No scleral icterus. No conjunctival pallor. Normocephalic, atraumatic. No pharyngeal erythema. No thyromegaly. CARDIOVASCULAR: S1 and S2 present. No murmurs, rubs, or gallops. PULMONARY: Decreased breath sounds bilateral ABDOMEN: Soft, nontender, nondistended, normoactive bowel sounds. No palpable organomegaly. MUSCULOSKELETAL: No joint swelling or deformity. EXTREMITIES: No cyanosis, clubbing, or pedal edema. NEUROLOGICAL: Gross neurological examination did not reveal any focal deficits. SKIN: No rashes. Past Medical History Past Medical History: COPD, GERD/Reflux, Hyperlipidemia Additional Past Medical History / Comment(s): L4/L5 spinal fusion 1989, COPD, History of Any Multi-Drug Resistant Organisms: None Reported Additional Past Surgical History / Comment(s): vasectomy, L4/L5 spinal fusion 1989; "esophagus wrapped" for his GERD Past Anesthesia/Blood Transfusion Reactions: No Reported Reaction Past Psychological History: No Psychological Hx Reported Smoking Status: Former smoker Past Alcohol Use History: None Reported Past Drug Use History: Marijuana - Past Family History Brother(s) Family Medical History: AICD/Pacemaker Medications and Allergies Home Medications Medication Instructions Recorded Confirmed Type No Known Home Medications 02/14/22 11/19/22 History Allergies Allergy/AdvReac Type Severity Reaction Status Date / Time No Known Allergies Allergy Verified 11/19/22 21:03 Physical Exam Vitals: Vital Signs Temp Pulse Pulse Resp BP BP Pulse Ox 11/20/22 09:05 11/20/22 09:00 11/20/22 04:00 98.9 F 85 20 105/72 94 L 11/20/22 02:30 20 11/20/22 02:27 116 H 22 108/64 92 L 11/20/22 01:24 11/20/22 00:37 96 21 103/89 97 11/19/22 23:19 85 25 H 116/71 97 11/19/22 22:21 86 28 H 123/86 95 11/19/22 21:51 93 30 H 128/75 96 11/19/22 21:33 11/19/22 20:57 108 H 30 H 83 L 11/19/22 20:30 105 H 30 H 160/88 96 11/19/22 20:14 106 H 11/19/22 20:00 101 H 11/19/22 19:40 101 H 28 H 174/87 95 11/19/22 18:40 98.6 F 103 H 28 H 195/98 94 L FiO2 11/20/22 09:05 35 11/20/22 09:00 35 11/20/22 04:00 11/20/22 02:30 11/20/22 02:27 11/20/22 01:24 35 11/20/22 00:37 11/19/22 23:19 11/19/22 22:21 11/19/22 21:51 11/19/22 21:33 40 11/19/22 20:57 11/19/22 20:30 11/19/22 20:14 11/19/22 20:00 11/19/22 19:40 11/19/22 18:40 Intake and Output 11/19/22 11/20/22 11/20/22 22:59 06:59 14:59 Output Total 200 Balance -200 Output: Urine 200 Other: Voiding Method Urinal Weight 54.431 kg 52.5 kg Results CBC & Chem 7: 11/20/22 03:38 11/20/22 08:44 Labs: Abnormal Lab Results - Last 24 Hours (Table) 11/19/22 11/19/22 11/19/22 Range/Units 19:21 19:21 19:21 WBC 12.2 H (3.8-10.6) k/uL Hct 53.9 H (39.0-53.0) % MCV 101.7 H (80.0-100.0) fL MCHC (31.0-37.0) g/dL Neutrophils # 9.8 H (1.3-7.7) k/uL Lymphocytes # (1.0-4.8) k/uL ABG pH (7.35-7.45) ABG pCO2 (35-45) mmHg ABG pO2 (83-108) mmHg ABG HCO3 (21-25) mmol/L ABG Total CO2 (19-24) mmol/L ABG O2 Saturation (94-97) % Potassium 5.8 H (3.5-5.1) mmol/L Chloride 96 L (98-107) mmol/L Carbon Dioxide 37 H (22-30) mmol/L BUN 29 H (9-20) mg/dL Glucose 143 H (74-99) mg/dL Troponin I 0.036 H* (0.000-0.034) ng/mL 11/19/22 11/19/22 11/19/22 Range/Units 21:14 21:56 23:57 WBC (3.8-10.6) k/uL Hct (39.0-53.0) % MCV (80.0-100.0) fL MCHC (31.0-37.0) g/dL Neutrophils # (1.3-7.7) k/uL Lymphocytes # (1.0-4.8) k/uL ABG pH 7.17 L* 7.18 L* (7.35-7.45) ABG pCO2 104 H* 100 H* (35-45) mmHg ABG pO2 70 L (83-108) mmHg ABG HCO3 38 H 38 H (21-25) mmol/L ABG Total CO2 41 H 41 H (19-24) mmol/L ABG O2 Saturation 88.0 L 93.0 L (94-97) % Potassium (3.5-5.1) mmol/L Chloride (98-107) mmol/L Carbon Dioxide (22-30) mmol/L BUN (9-20) mg/dL Glucose (74-99) mg/dL Troponin I 0.409 H* (0.000-0.034) ng/mL 11/20/22 11/20/22 11/20/22 Range/Units 01:18 03:38 03:38 WBC (3.8-10.6) k/uL Hct (39.0-53.0) % MCV 102.5 H (80.0-100.0) fL MCHC 30.8 L (31.0-37.0) g/dL Neutrophils # 9.4 H (1.3-7.7) k/uL Lymphocytes # 0.4 L (1.0-4.8) k/uL ABG pH 7.28 L (7.35-7.45) ABG pCO2 76 H* (35-45) mmHg ABG pO2 125 H (83-108) mmHg ABG HCO3 36 H (21-25) mmol/L ABG Total CO2 38 H (19-24) mmol/L ABG O2 Saturation 99.0 H (94-97) % Potassium (3.5-5.1) mmol/L Chloride (98-107) mmol/L Carbon Dioxide (22-30) mmol/L BUN (9-20) mg/dL Glucose (74-99) mg/dL Troponin I 0.648 H* (0.000-0.034) ng/mL Assessment and Plan Assessment: Assessment and plan * Acute hypoxic hypercapnic respiratory failure * COPD exacerbation * Acute tracheobronchitis * Non-ST elevated NV * Chronic tobacco use * Acute hyperkalemia * Consult obtained from pulmonary medicine and cardiology * In regards to hypoxic hypercapnic respiratory failure serial VBG obtained, use BiPAP as needed * In regards to COPD exacerbation continue IV Solu-Medrol and azithromycin, breathing treatments ordered as needed. Tested negative for influenza and Covid * In regards to elevated troponin cardiology consulted continue on IV heparin * In regards to acute hyperkalemia follow-up blood work obtained, given calcium gluconate, insulin and dextrose and sodium bicarbonate * CODE STATUS is full code
[2022-11-20 12:50] LABS: Potassium 4.9 mmol/L (3.5-5.1)
[2022-11-20] MEDS ORDERED: LIDOCAINE 1% INJ 10MG/ML (20 ML MDV) ONE (13:16)
[2022-11-20] MEDS ORDERED: VERAPAMIL 2.5 MG/ML 2 ML AMP ONE (13:16)
[2022-11-20] MEDS ORDERED: fentaNYL (PF) 50 MCG/ML 2 ML AMP ONE (13:33)
[2022-11-20] MEDS ORDERED: LIDOCAINE 1% INJ 10MG/ML (20 ML MDV) SQ ONE (13:47)
[2022-11-20] MEDS ORDERED: fentaNYL (PF) 50 MCG/1 ML VIAL IVP ONE (13:47)
[2022-11-20] MEDS ORDERED: MIDAZOLAM 2 MG/2 ML VIAL IVP ONE (13:47)
[2022-11-20] MEDS ORDERED: VERAPAMIL SYRINGE (5 MG/10 ML) INTRAARTER ONE (13:50)
[2022-11-20] MEDS ORDERED: HEPARIN SODIUM 1,000 UN/ML (10ML VL) ONE (13:53)
[2022-11-20] MEDS ORDERED: HEPARIN SODIUM 1,000 UN/ML (10ML VL) IVP ONE (13:55)
[2022-11-20] MEDS ORDERED: IV FLUID CONTINUATION 1,000 ML IV ONE (13:58)
[2022-11-20] MEDS ORDERED: IOPAMIDOL-370 100ML BTL INJ ONE (14:07)
[2022-11-20] MEDS ORDERED: METOPROLOL TARTRATE 5 MG/5 ML VIAL IVP STA (15:03)
[2022-11-20] MEDS: METOPROLOL TARTRATE 25 MG TAB PO SCH (15:13)
--- NOTE | 2022-11-20 15:37 | P.CARDCATH ---
Description of Procedure: PROCEDURES PERFORMED: Left heart catheterization, bilateral coronary angiography, left ventriculogram, ultrasound guided arterial access INDICATION: Non-STEMI CONSENT:I have discussed the risks, benefits and alternative therapies for the above-mentioned procedure and for both sedation/analgesia as well as necessary blood product administration, if indicated, as they pertain to this patient. The patient has indicated understanding and acceptance of the risks and procedures discussed. PROCEDURE: After the risks, benefits and alternatives of the above mentioned procedure explained in detail with the patient, informed consent was obtained. Patient was taken to the catheterization lab and prepped and draped in usual fashion. Ultrasound guidance was used to assess for arterial access. 1% lidocaine was used to anesthetize the right ulnar artery given ulnar appeared larger on US. A 6-Moroccan sheath was placed in the right ulnar artery using modified Seldinger technique and ultrasound guidance. Left coronary angiography was performed with a 5-Moroc[place] JL 3.5 catheter and right coronary angiography was performed with a 5-[place]oc[place] JR5 catheter in various views. A 5-[place]oc[place] FR5 catheter was inserted into the left ventricle and pressure measurements were obtained. The right ulnar sheath was removed and a TR band was placed with hemostasis achieved. The patient tolerated the procedure well. Patient was transported back to the post catheterization holding area in stable condition. Conscious Sedation: Patient was monitored under the direct supervision of myself for conscious sedation using Versed and fentanyl for a total duration of 20 minutes HEMODYNAMICS: Ao: 137/78 LV: 134/18, LVEDP 34 SELECTIVE CORONARY ARTERIOGRAPHY: LEFT MAIN: The left main is a large caliber vessel which bifurcates into the LAD and circumflex. There is no significant stenosis. LEFT ANTERIOR DESCENDING CORONARY ARTERY: LAD is a large caliber vessel which wraps around to the apex. There is diffuse proximal and mid 20-30% stenosis and otherwise mild luminal irregularities. LEFT CIRCUMFLEX CORONARY ARTERY: Left circumflex is a moderate caliber vessel with 20-30% stenosis. RIGHT CORONARY ARTERY: The right coronary artery is a large caliber vessel which gives off a PDA and PLV branch and is the dominant vessel. There are tandem 30% proximal and mid RCA stenoses and otherwise mild luminal irregularities. LEFT VENTRICULOGRAM: Left ventricular ejection fraction 35-40% with entire apical hypokinesis with preservation of the base consistent with Takotsubo's cardiomyopathy FINAL IMPRESSION: 1. Mild CAD as described above including 30% LAD, 30% circumflex and 30% RCA stenosis. 2. Takotsubo's cardiomyopathy with EF 35-40% 3. Significantly elevated left sided filling pressures PLAN: 1. Aggressive risk factor modification per most recent ACC/AHA guidelines. 2. Increase diuretics
[2022-11-20] MEDS: FUROSEMIDE 10 MG/ML 4 ML VIAL IV SCH (16:04)
[2022-11-20] MEDS ORDERED: DEXTROSE 5% IN WATER 100 ML with AMIODARONE 150 MG IV ONE (16:39)
[2022-11-20] MEDS ORDERED: AMIODARONE 360 MG in DEXTROSE 5% IN WATER 200 ML IV ONE ×2 (16:39)
[2022-11-20] MEDS ORDERED: SYMBICORT 80-4.5 MCG INHALER INHALATION SCH (20:00)
[2022-11-20] MEDS: SYMBICORT 160-4.5 MCG INHALER INHALATION SCH (21:33)
[2022-11-20] MEDS: AMIODARONE 450 MG in DEXTROSE 5% IN WATER 250 ML IV SCH ×2 (22:48)
[2022-11-21 08:22] LABS: Basophils % (A) 0 %; Eosinophils # (A) 0.2 k/uL (0-0.7); Eosinophils % (A) 1 %; HCT 46.3 % (39.0-53.0); HGB 14.2 gm/dL (13.0-17.5); Hypochromasia Slight; Lymphocytes # (A) 1.3 k/uL (1.0-4.8); Lymphocytes % (A) 7 %; MCH 31.2 pg (25.0-35.0); MCHC 30.6 g/dL (31.0-37.0); MCV 101.7 fL (80.0-100.0); Macrocytosis Slight; Mean Platelet Volume 9.7; Monocytes # (A) 1.4 k/uL (0-1.0); Monocytes % (A) 8 %; Neutrophils # (A) 15.4 k/uL (1.3-7.7); Neutrophils % (A) 83 %; Platelet Count 227 k/uL (150-450); RBC 4.55 m/uL (4.30-5.90); RDW 13.2 % (11.5-15.5); WBC 18.7 k/uL (3.8-10.6)
[2022-11-21 08:39] LABS: Partial Thromboplastin Time 37.4 sec (22.0-30.0); Prothrombin Time 10.6 sec (9.0-12.0)
[2022-11-21] MEDS: IPRATROPIUM-ALBUTEROL 3 ML NEB INHALATION PRN ×4 (08:46→19:48)
[2022-11-21] MEDS: SYMBICORT 160-4.5 MCG INHALER INHALATION SCH ×2 (08:46→19:49)
[2022-11-21] MEDS: guaiFENesin 600 MG TABLET.ER PO SCH ×2 (08:47→20:53)
[2022-11-21] MEDS: predniSONE 20 MG TAB PO SCH (08:47)
[2022-11-21] MEDS: AZITHROMYCIN 500 MG TAB PO SCH (08:47)
[2022-11-21] MEDS: METOPROLOL TARTRATE 25 MG TAB PO SCH ×3 (08:47→20:55)
[2022-11-21] MEDS: FUROSEMIDE 10 MG/ML 4 ML VIAL IV SCH (08:47)
[2022-11-21 08:52] LABS: African American GFR (CKD) >90 (>60 ml/min/1.73 sqM); Anion Gap 1 mmol/L; Blood Urea Nitrogen 45 mg/dL (9-20); Calcium 8.7 mg/dL (8.4-10.2); Carbon Dioxide 36 mmol/L (22-30); Chloride 98 mmol/L (98-107); Glucose 102 mg/dL (74-99); Magnesium 2.3 mg/dL (1.6-2.3); Non-African American GFR(CKD) 86 (>60 ml/min/1.73 sqM); Potassium 5.3 mmol/L (3.5-5.1); Sodium 135 mmol/L (137-145)
--- NOTE | 2022-11-21 11:22 | P.PN ---
Subjective Progress Note Date: 11/21/22 Principal diagnosis: Shortness of breath. Pulmonary consult dated 11/20/2022. 72-year-old male seen in the emergency department, on November 19, complaining of shortness of breath. The patient does have a history of long-standing COPD. He does not use home oxygen. He is not a particularly good historian, but apparently developed shortness of breath, the day prior to his admission to the emergency department. He had minimal dry cough. No fever or chills. No chest pain or chest discomfort. The patient apparently had saturations in the 80s, when he was seen by EMS. He was brought into the emergency department, given breathing treatments and oxygen. He is seen today in room 361. He is a very poor historian. He apparently was on BiPAP, with settings of 14/6, and 35%. He's currently on IV heparin for an elevated troponin level. White count 10.4, hemoglobin 15.9, hematocrit 51.5, and platelet count is normal. Initial blood gases showed a pO2 of 89, pCO2 of 100, and pH is 7.18. Subsequent blood gases show pO2 125, pCO2 76, and pH is 7.28. I suspect the second blood gas, is when the patient was on BiPAP therapy. Sodium 137, potassium 5.8, chlorides 96, CO2 32, BUN 40, creatinine 0.91. Troponins were 0.409 and 0.648. Chest x-ray showed changes of COPD, with no acute abnormalities. Progress note dated 11/21/2022. 72-year-old male with history of COPD. The patient was seen in consultation on November 20. Please see note above. The patient underwent cardiac catheterization yesterday. He was found to have mild coronary disease, and the LAD, circumflex, and right coronary artery. The patient was thought to have Takotsubo's cardiomyopathy, with an ejection fraction between 35 and 40%. The patient's currently on saline at 20 mL an hour, IV heparin, and amiodarone at 0.5 mg/m. The patient's also getting oxygen at 2 L by nasal cannula. In addition, the patient uses the BiPAP device, short period of time, last night, with settings of 14/6, and 35%. White count is 18.7, hemoglobin 14.2, hematocrit 46.3, with a normal platelet count. Sodium 135, potassium 5.3, chlorides 98, CO2 36, BUN 45, and creatinine 0.90. Pro-calcitonin level was 0.24. Objective - Vital Signs Vital signs: Vital Signs Temp 97.4 F L 11/21/22 08:00 Pulse 102 H 11/21/22 08:57 Resp 20 11/21/22 08:00 BP 102/71 11/21/22 08:00 Pulse Ox 98 11/21/22 08:49 FiO2 35 11/21/22 00:23 Intake & Output 11/20/22 11/21/22 11/21/22 18:59 06:59 18:59 Intake Total 672.739 46.922 189.171 Output Total 550 325 Balance 122.739 46.922 -135.829 Weight 52.5 kg Intake: IV 50 Intake, IV Titration 82.739 46.922 71.171 Amount Heparin Sod,Pork in 0.45% 82.739 46.922 71.171 NaCl 25,000 unit In 0.45 % NaCl 1 250ml.bag @ 12 UNITS/KG/HR 6.532 mls/hr IV .Q24H [facility] Rx#: [id number] Oral 540 118 Output: Urine 550 325 Other: Voiding Method Urinal Urinal Urinal # Voids 1 1 1 # Bowel Movements 1 1 - Exam No acute distress, oriented 3. Currently on 2 L. Saturations are 98%. HEENT examination is grossly unremarkable. Mucous membranes are moist. No oral lesions. Neck supple. Full range of motion. No adenopathy thyromegaly or neck vein distention. Cardiovascular examination reveals regular rhythm rate. S1-S2 normal. No S3 or S4. No discernible murmur noted. Heart sounds are distant. Heart rate 92 bpm. Lungs reveal diffuse bilateral expiratory rhonchi and wheezes. Saturations are 98% on 2 L.. Abdomen soft bowel sounds are heard. No masses or tenderness. Extremities are intact. No cyanosis clubbing or edema. Skin is without rash or lesion. Neurologic examination is brief but nonfocal. - Labs CBC & Chem 7: 11/21/22 07:43 11/21/22 07:43 Labs: Abnormal Lab Results - Last 24 Hours (Table) 11/20/22 11/20/22 11/20/22 Range/Units 11:49 11:49 11:49 WBC (3.8-10.6) k/uL MCV (80.0-100.0) fL MCHC (31.0-37.0) g/dL Neutrophils # (1.3-7.7) k/uL Monocytes # (0-1.0) k/uL APTT 45.3 H (22.0-30.0) sec Sodium (137-145) mmol/L Potassium (3.5-5.1) mmol/L Carbon Dioxide (22-30) mmol/L BUN (9-20) mg/dL Glucose (74-99) mg/dL Troponin I 0.549 H* (0.000-0.034) ng/mL Procalcitonin 0.24 H (0.02-0.09) ng/mL 11/21/22 11/21/22 11/21/22 Range/Units 00:20 07:43 07:43 WBC 18.7 H (3.8-10.6) k/uL MCV 101.7 H (80.0-100.0) fL MCHC 30.6 L (31.0-37.0) g/dL Neutrophils # 15.4 H (1.3-7.7) k/uL Monocytes # 1.4 H (0-1.0) k/uL APTT 34.7 H 37.4 H (22.0-30.0) sec Sodium (137-145) mmol/L Potassium (3.5-5.1) mmol/L Carbon Dioxide (22-30) mmol/L BUN (9-20) mg/dL Glucose (74-99) mg/dL Troponin I (0.000-0.034) ng/mL Procalcitonin (0.02-0.09) ng/mL 11/21/22 Range/Units 07:43 WBC (3.8-10.6) k/uL MCV (80.0-100.0) fL MCHC (31.0-37.0) g/dL Neutrophils # (1.3-7.7) k/uL Monocytes # (0-1.0) k/uL APTT (22.0-30.0) sec Sodium 135 L (137-145) mmol/L Potassium 5.3 H (3.5-5.1) mmol/L Carbon Dioxide 36 H (22-30) mmol/L BUN 45 H (9-20) mg/dL Glucose 102 H (74-99) mg/dL Troponin I (0.000-0.034) ng/mL Procalcitonin (0.02-0.09) ng/mL Assessment and Plan Assessment: Acute hypoxemic respiratory failure, secondary to COPD exacerbation. S/P cardiac catheterization, 11/20/2022, showing mild CAD, in the LAD, circumflex, and right coronary artery, and Takotsubo's cardiomyopathy. Atrial fibrillation with RVR. History of heavy and previous tobacco use. Gastroesophageal reflux disease. History of hyperlipidemia. L4/L5 spinal fusion. Plan: Plan dated 11/20/2022. The patient's Solu-Medrol was converted to prednisone 40 mg a day. The Symbicort is increased to 160/4.5, 2 puffs twice a day. The patient continues on IV heparin, until he is seen by cardiology. He is also receiving albuterol sulfate and ipratropium bromide. Azithromycin is changed from IV to by mouth. In addition, check a pro-calcitonin level. The patient may not need any antibiotic at all. Prognosis is guarded. Labs, x-rays, and medications are reviewed. Plan dated 11/21/2022. The patient appears to be relatively stable. He did use BiPAP last night for a few hours. He's currently on 2 L of oxygen. The patient's getting saline at 20 mL an hour, IV heparin, and amiodarone at 0.5 mg/m. We will continue to follow and make recommendations along the way. The patient's overall prognosis remains very guarded. Labs, x-rays, and medications are reviewed. Time with Patient: Less than 30
--- NOTE | 2022-11-21 12:09 | P.PN ---
Subjective Progress Note Date: 11/21/22 * 72-year-old gentleman with past medical history significant for COPD, per chart review how the patient not on any medications previous hospitalization in 2021 with documented diagnoses of COPD, was seen by pulmonary medicine for shortness of breath right-sided pneumothorax and had poor vent placement, pr esented to the emergency department with complaints of repeat episode of shortness of breath * Patient was noted to be in acute distress having difficulty in breathing dry cough. Patienton noninvasive ventilation/BiPAP secondary to hypoxia at the time of presentation patient was placed on 3 L of oxygen and he does not use oxygen at home * Workup initiated in ER included CBC which showed white blood cell count of 12.2, platelet count within normal limits. PT/INR within normal limits * A d-dimer was checked which was negative * Basic blood work obtained showed acute hyperkalemia with potassium of 5.8, creatinine of 0.74. Troponin obtained 0.409, serum lactate of 1.6 * Tested negative for Covid and influenza * Chest x-ray obtained showed no focal infiltrate or pneumothorax hyperinflation noted changes consistent with COPD 11/21: Patient seen and evaluated bedside, patient does have excessive sputum production. Status post cardiac catheterization nonocclusive coronary artery disease noted. Continue patient on breathing treatments. Hyperkalemia noted and corrected Objective - Vital Signs Vital signs: Vital Signs Temp 97.8 F 11/21/22 11:50 Pulse 117 H 11/21/22 11:50 Resp 18 11/21/22 11:50 BP 95/60 11/21/22 11:50 Pulse Ox 96 11/21/22 11:50 FiO2 35 11/21/22 00:23 Intake & Output 11/20/22 11/21/22 11/21/22 18:59 06:59 18:59 Intake Total 672.739 46.922 189.171 Output Total 550 325 Balance 122.739 46.922 -135.829 Weight 52.5 kg Intake: IV 50 Intake, IV Titration 82.739 46.922 71.171 Amount Heparin Sod,Pork in 0.45% 82.739 46.922 71.171 NaCl 25,000 unit In 0.45 % NaCl 1 250ml.bag @ 12 UNITS/KG/HR 6.532 mls/hr IV .Q24H [facility] Rx#: [id number] Oral 540 118 Output: Urine 550 325 Other: Voiding Method Urinal Urinal Urinal # Voids 1 1 1 # Bowel Movements 1 1 - Exam GENERAL: The patient is alert and oriented x3, not in any acute distress. Ill appearance, nasal cannula in place HEENT: Pupils are round and equally reacting to light. EOMI. No scleral icterus. No conjunctival pallor. Normocephalic, atraumatic. No pharyngeal erythema. No thyromegaly. CARDIOVASCULAR: S1 and S2 present. No murmurs, rubs, or gallops. PULMONARY: Decreased breath sounds bilateral ABDOMEN: Soft, nontender, nondistended, normoactive bowel sounds. No palpable organomegaly. MUSCULOSKELETAL: No joint swelling or deformity. EXTREMITIES: No cyanosis, clubbing, or pedal edema. NEUROLOGICAL: Gross neurological examination did not reveal any focal deficits. SKIN: No rashes. - Labs CBC & Chem 7: 11/21/22 07:43 11/21/22 07:43 Labs: Abnormal Lab Results - Last 24 Hours (Table) 11/20/22 11/20/22 11/20/22 Range/Units 11:49 11:49 11:49 WBC (3.8-10.6) k/uL MCV (80.0-100.0) fL MCHC (31.0-37.0) g/dL Neutrophils # (1.3-7.7) k/uL Monocytes # (0-1.0) k/uL APTT 45.3 H (22.0-30.0) sec Sodium (137-145) mmol/L Potassium (3.5-5.1) mmol/L Carbon Dioxide (22-30) mmol/L BUN (9-20) mg/dL Glucose (74-99) mg/dL Troponin I 0.549 H* (0.000-0.034) ng/mL Procalcitonin 0.24 H (0.02-0.09) ng/mL 11/21/22 11/21/22 11/21/22 Range/Units 00:20 07:43 07:43 WBC 18.7 H (3.8-10.6) k/uL MCV 101.7 H (80.0-100.0) fL MCHC 30.6 L (31.0-37.0) g/dL Neutrophils # 15.4 H (1.3-7.7) k/uL Monocytes # 1.4 H (0-1.0) k/uL APTT 34.7 H 37.4 H (22.0-30.0) sec Sodium (137-145) mmol/L Potassium (3.5-5.1) mmol/L Carbon Dioxide (22-30) mmol/L BUN (9-20) mg/dL Glucose (74-99) mg/dL Troponin I (0.000-0.034) ng/mL Procalcitonin (0.02-0.09) ng/mL 11/21/22 Range/Units 07:43 WBC (3.8-10.6) k/uL MCV (80.0-100.0) fL MCHC (31.0-37.0) g/dL Neutrophils # (1.3-7.7) k/uL Monocytes # (0-1.0) k/uL APTT (22.0-30.0) sec Sodium 135 L (137-145) mmol/L Potassium 5.3 H (3.5-5.1) mmol/L Carbon Dioxide 36 H (22-30) mmol/L BUN 45 H (9-20) mg/dL Glucose 102 H (74-99) mg/dL Troponin I (0.000-0.034) ng/mL Procalcitonin (0.02-0.09) ng/mL Assessment and Plan Assessment: Assessment and plan * Acute hypoxic hypercapnic respiratory failure * COPD exacerbation * A. fib with RVR * Acute tracheobronchitis * Non-ST elevated [place] * Chronic tobacco use * Acute hyperkalemia * Consult obtained from pulmonary medicine and cardiology * In regards to hypoxic hypercapnic respiratory failure> weaned down from BiPAP to nasal cannula, continue breathing treatments azithromycin and Mucinex * In regards to COPD exacerbation continue prednisone and azithromycin * In regards to elevated troponin cardiology consulted, status post cardiac catheterization nonocclusive coronary artery disease noted medical management * In regards to new onset atrial fibrillation rapid ventricular response continue patient on IV heparin and amiodarone drip cardiology following * In regards to acute hyperkalemia , patient given insulin and dextrose * CODE STATUS is full code
[2022-11-21] MEDS ORDERED: INSULIN REGULAR 100 UNIT/ML VIAL (IV) IV ONE (12:30)
[2022-11-21] MEDS ORDERED: SODIUM ZIRCONIUM CYCLOSILICATE 10 GM PACKET PO ONE (12:30)
[2022-11-21] MEDS ORDERED: DEXTROSE 50% SYRINGE 50 ML IVP STA (13:38)
[2022-11-21] MEDS: AMIODARONE 450 MG in DEXTROSE 5% IN WATER 250 ML IV SCH ×2 (14:44)
--- NOTE | 2022-11-21 16:49 | P.PN ---
Subjective HISTORY OF PRESENTING ILLNESS Patient is pleasant 72-year-old male with history of COPD, GERD, some medical noncompliance with patient not taking any medications however states he cannot afford medications, coronary artery calcifications, prior pneumothorax who presents secondary to shortness breath. He cannot recall all the details around when he presented however was having significant dyspnea and admits this has been going on for the past few weeks. He denies any chest pain around this episode however states at home he will get intermittent episodes of chest pain not necessarily associated with exertion. He was noted to have significantly elevated pCO2 100 and then down to 76 and had been placed on BiPAP. BUN 40 and creatinine 0.9. Troponins 0.02, 0.4, 0.64. He denies any prior history of CAD. He previously smoked however has not and a number of years, no alcohol, occasional marijuana. Family history of brother who from some form of cardiac issue possible arrhythmia. 11/21 Patient seen and exmained. Underwent LHC which shows consistent with Takotsubo's cardiomyopathy. Went into Afib with RVR yesterday has been heart rates 130s to 140s. He was placed on amiodarone. Blood pressures have been somewhat borderline systolics 90s to 110s. PHYSICAL EXAMINATION Vital signs reviewed. CONSTITUTIONAL: No apparent distress, chronically ill appearing. HEENT: Head is normocephalic. Pupils are equal, round. Sclerae anicteric. Mucous membranes of the mouth are moist. No JVD. No carotid bruit. CHEST EXAMINATION: Lungs are clear to auscultation. No chest wall tenderness is noted on palpation or with deep breathing. HEART EXAMINATION: Regular rate and rhythm. S1, S2 heard. No murmurs, gallops or rub. ABDOMEN: Soft, nontender. Positive bowel sounds. EXTREMITIES: 2+ peripheral pulses, no lower extremity edema and no calf tenderness. NEUROLOGIC EXAMINATION: Patient is awake, alert and oriented x3. ASSESSMENT 1. Non-STEMI, related to Takotsubo's cardiomyopathy 2. Acute on chronic hypoxic and hypercarbic respiratory failure, likely mainly related to COPD 3. COPD 4. Intermittent episodes of chest pain at home 5. Coronary artery calcifications noted on prior CT 6. Prior history of pneumothorax 7. Medical noncompliance, unable to afford some medications 8. Acute on chronic systolic heart failure 9. Cardiomyopathy, Takotsubo's 10. New onset Afib with RVR 11. Mild CAD 30% LAD PLAN Patient surprisingly with elevated LVEDP and cardiomyopathy with EF 35-40% consistent with Takotsubo's cardiomyopathy. Does not currently appear volume overloaded and attempt to treat his A. fib and optimize heart failure regimen. We will increase his metoprolol to 37.5 mg twice a day and continue with amiodarone. Evaluate Eliquis and stop heparin drip. Further recs to follow. Objective - Vital Signs Vital signs: Vital Signs Temp 97.8 F 11/21/22 11:50 Pulse 105 H 11/21/22 16:11 Resp 18 11/21/22 11:50 BP 95/60 11/21/22 11:50 Pulse Ox 96 11/21/22 11:50 FiO2 35 11/21/22 00:23 Intake & Output 11/20/22 11/21/22 11/21/22 18:59 06:59 18:59 Intake Total 672.739 46.922 557.171 Output Total 550 325 Balance 122.739 46.922 232.171 Weight 52.5 kg Intake: IV 50 Intake, IV Titration 82.739 46.922 321.171 Amount Amiodarone 450 mg In 250 Dextrose 5% in Water 250 ml @ 0.5 MG/MIN 16.667 mls/hr IV .Q15H [facility] Rx#: [id number] Heparin Sod,Pork in 0.45% 82.739 46.922 71.171 NaCl 25,000 unit In 0.45 % NaCl 1 250ml.bag @ 12 UNITS/KG/HR 6.532 mls/hr IV .Q24H [facility] Rx#: [id number] Oral 540 236 Output: Urine 550 325 Other: Voiding Method Urinal Urinal Urinal # Voids 1 1 1 # Bowel Movements 1 1 - Labs CBC & Chem 7: 11/21/22 07:43 11/21/22 07:43 Labs: Abnormal Lab Results - Last 24 Hours (Table) 11/20/22 11/21/22 11/21/22 Range/Units 11:49 00:20 07:43 WBC 18.7 H (3.8-10.6) k/uL MCV 101.7 H (80.0-100.0) fL MCHC 30.6 L (31.0-37.0) g/dL Neutrophils # 15.4 H (1.3-7.7) k/uL Monocytes # 1.4 H (0-1.0) k/uL APTT 34.7 H (22.0-30.0) sec Sodium (137-145) mmol/L Potassium (3.5-5.1) mmol/L Carbon Dioxide (22-30) mmol/L BUN (9-20) mg/dL Glucose (74-99) mg/dL Procalcitonin 0.24 H (0.02-0.09) ng/mL 11/21/22 11/21/22 Range/Units 07:43 07:43 WBC (3.8-10.6) k/uL MCV (80.0-100.0) fL MCHC (31.0-37.0) g/dL Neutrophils # (1.3-7.7) k/uL Monocytes # (0-1.0) k/uL APTT 37.4 H (22.0-30.0) sec Sodium 135 L (137-145) mmol/L Potassium 5.3 H (3.5-5.1) mmol/L Carbon Dioxide 36 H (22-30) mmol/L BUN 45 H (9-20) mg/dL Glucose 102 H (74-99) mg/dL Procalcitonin (0.02-0.09) ng/mL
[2022-11-21] MEDS: AMIODARONE 200 MG TAB PO SCH (20:53)
[2022-11-21] MEDS: APIXABAN 5 MG TAB PO SCH (20:53)
--- NOTE | 2022-11-22 01:37 | P.PN ---
Subjective Progress Note Date: 11/22/22 * 72-year-old gentleman with past medical history significant for COPD, per chart review how the patient not on any medications previous hospitalization in 2021 with documented diagnoses of COPD, was seen by pulmonary medicine for shortness of breath right-sided pneumothorax and had poor vent placement, pr esented to the emergency department with complaints of repeat episode of shortness of breath * Patient was noted to be in acute distress having difficulty in breathing dry cough. Patienton noninvasive ventilation/BiPAP secondary to hypoxia at the time of presentation patient was placed on 3 L of oxygen and he does not use oxygen at home * Workup initiated in ER included CBC which showed white blood cell count of 12.2, platelet count within normal limits. PT/INR within normal limits * A d-dimer was checked which was negative * Basic blood work obtained showed acute hyperkalemia with potassium of 5.8, creatinine of 0.74. Troponin obtained 0.409, serum lactate of 1.6 * Tested negative for Covid and influenza * Chest x-ray obtained showed no focal infiltrate or pneumothorax hyperinflation noted changes consistent with COPD * 11/21: Patient seen and evaluated bedside, patient does have excessive sputum production. Status post cardiac catheterization nonocclusive coronary artery disease noted. Continue patient on breathing treatments. Hyperkalemia noted and corrected * 11/22 : Patient seen and evaluated bedside, chest x-ray shows changes consistent with COPD. Venous blood gas shows hypercapnia however unchanged pH 7.36. Continue patient on oxygen supplementation. Continue to monitor for tachycardia Objective - Vital Signs Vital signs: Vital Signs Temp 98.0 F 11/21/22 16:00 Pulse 105 H 11/21/22 20:04 Resp 20 11/21/22 16:00 BP 93/68 11/21/22 16:00 Pulse Ox 96 11/21/22 16:00 FiO2 35 11/21/22 00:23 Intake & Output 11/21/22 11/21/22 11/22/22 06:59 18:59 06:59 Intake Total 46.922 657.562 Output Total 325 300 Balance 46.922 332.562 -300 Intake: Intake, IV Titration 46.922 421.562 Amount Amiodarone 450 mg In 287.779 Dextrose 5% in Water 250 ml @ 0.5 MG/MIN 16.667 mls/hr IV .Q15H [facility] Rx#: [id number] Heparin Sod,Pork in 0.45% 46.922 133.783 NaCl 25,000 unit In 0.45 % NaCl 1 250ml.bag @ 12 UNITS/KG/HR 6.532 mls/hr IV .Q24H [facility] Rx#: [id number] Oral 236 Output: Urine 325 300 Other: Voiding Method Urinal Urinal # Voids 1 2 # Bowel Movements 1 1 - Exam GENERAL: The patient is alert and oriented x3, not in any acute distress. Ill appearance, nasal cannula in place HEENT: Pupils are round and equally reacting to light. EOMI. No scleral icterus. No conjunctival pallor. Normocephalic, atraumatic. No pharyngeal erythema. No thyromegaly. CARDIOVASCULAR: S1 and S2 present. Tachycardia PULMONARY: Decreased breath sounds bilateral ABDOMEN: Soft, nontender, nondistended, normoactive bowel sounds. No palpable organomegaly. MUSCULOSKELETAL: No joint swelling or deformity. EXTREMITIES: No cyanosis, clubbing, or pedal edema. NEUROLOGICAL: Gross neurological examination did not reveal any focal deficits. SKIN: No rashes. - Labs CBC & Chem 7: 11/22/22 08:48 11/22/22 08:48 Labs: Abnormal Lab Results - Last 24 Hours (Table) 11/21/22 11/21/22 11/21/22 Range/Units 07:43 07:43 07:43 WBC 18.7 H (3.8-10.6) k/uL MCV 101.7 H (80.0-100.0) fL MCHC 30.6 L (31.0-37.0) g/dL Neutrophils # 15.4 H (1.3-7.7) k/uL Monocytes # 1.4 H (0-1.0) k/uL APTT 37.4 H (22.0-30.0) sec Sodium 135 L (137-145) mmol/L Potassium 5.3 H (3.5-5.1) mmol/L Carbon Dioxide 36 H (22-30) mmol/L BUN 45 H (9-20) mg/dL Glucose 102 H (74-99) mg/dL 11/21/22 Range/Units 17:49 WBC (3.8-10.6) k/uL MCV (80.0-100.0) fL MCHC (31.0-37.0) g/dL Neutrophils # (1.3-7.7) k/uL Monocytes # (0-1.0) k/uL APTT 40.0 H (22.0-30.0) sec Sodium (137-145) mmol/L Potassium (3.5-5.1) mmol/L Carbon Dioxide (22-30) mmol/L BUN (9-20) mg/dL Glucose (74-99) mg/dL Assessment and Plan Assessment: Assessment and plan * Acute hypoxic hypercapnic respiratory failure * COPD exacerbation * A. fib with RVR * Acute tracheobronchitis * Non-ST elevated [place], Mild CAD * Takisubocardiomyopathy>> Acute Systolic CHF * Chronic tobacco use * Acute hyperkalemia Resolved * Consult obtained from pulmonary medicine and cardiology * In regards to hypoxic hypercapnic respiratory failure> weaned down from BiPAP to nasal cannula, continue breathing treatments azithromycin and Mucinex * In regards to COPD exacerbation continue prednisone and azithromycin Day 3/ * In regards to elevated troponin cardiology consulted, status post cardiac catheterization nonocclusive coronary artery disease noted medical management * In regards to new onset atrial fibrillation rapid ventricular response patient was on IV heparin and amiodarone drip cardiology following>> Started eliquis and oral amiodarone, Metoprolol * In regards to acute hyperkalemia , patient given insulin and dextrose>> Followup Improved * In regards to acute systolic congestive heart failure. Continue patient on IV Lasix monitor intake and output. Chest x-ray 11/22 that showed pulmonary vascular congestion * CODE STATUS is full code
[2022-11-22] MEDS: FUROSEMIDE 10 MG/ML 4 ML VIAL IV SCH (08:02)
[2022-11-22] MEDS: guaiFENesin 600 MG TABLET.ER PO SCH ×2 (08:02→20:40)
[2022-11-22] MEDS: predniSONE 20 MG TAB PO SCH (08:02)
[2022-11-22] MEDS: AMIODARONE 200 MG TAB PO SCH ×2 (08:02→20:40)
[2022-11-22] MEDS: APIXABAN 5 MG TAB PO SCH ×2 (08:02→20:40)
[2022-11-22] MEDS: METOPROLOL TARTRATE 25 MG TAB PO SCH (08:02)
[2022-11-22] MEDS: AZITHROMYCIN 500 MG TAB PO SCH (08:03)
[2022-11-22] MEDS: SYMBICORT 160-4.5 MCG INHALER INHALATION SCH ×2 (09:16→20:47)
[2022-11-22 09:25] LABS: HCT 48.6 % (39.0-53.0); HGB 15.1 gm/dL (13.0-17.5); Hypochromasia Slight; MCH 31.5 pg (25.0-35.0); MCHC 31.1 g/dL (31.0-37.0); MCV 101.5 fL (80.0-100.0); Macrocytosis Slight; Platelet Count 233 k/uL (150-450); RBC 4.79 m/uL (4.30-5.90)
[2022-11-22 09:39] LABS: African American GFR (CKD) >90 (>60 ml/min/1.73 sqM); Anion Gap 2 mmol/L; Blood Urea Nitrogen 43 mg/dL (9-20); C Reactive Protein 3.2 mg/dL (<1.0); Carbon Dioxide 39 mmol/L (22-30); Chloride 95 mmol/L (98-107); Glucose 111 mg/dL (74-99); Non-African American GFR(CKD) >90 (>60 ml/min/1.73 sqM); Potassium 4.6 mmol/L (3.5-5.1); Sodium 136 mmol/L (137-145)
[2022-11-22 09:40] LABS: VBG PH 7.36 (7.31-7.41)
--- NOTE | 2022-11-22 10:51 | P.PN ---
Subjective Progress Note Date: 11/22/22 Principal diagnosis: Shortness of breath. Pulmonary consult dated 11/20/2022. 72-year-old male seen in the emergency department, on November 19, complaining of shortness of breath. The patient does have a history of long-standing COPD. He does not use home oxygen. He is not a particularly good historian, but apparently developed shortness of breath, the day prior to his admission to the emergency department. He had minimal dry cough. No fever or chills. No chest pain or chest discomfort. The patient apparently had saturations in the 80s, when he was seen by EMS. He was brought into the emergency department, given breathing treatments and oxygen. He is seen today in room 361. He is a very poor historian. He apparently was on BiPAP, with settings of 14/6, and 35%. He's currently on IV heparin for an elevated troponin level. White count 10.4, hemoglobin 15.9, hematocrit 51.5, and platelet count is normal. Initial blood gases showed a pO2 of 89, pCO2 of 100, and pH is 7.18. Subsequent blood gases show pO2 125, pCO2 76, and pH is 7.28. I suspect the second blood gas, is when the patient was on BiPAP therapy. Sodium 137, potassium 5.8, chlorides 96, CO2 32, BUN 40, creatinine 0.91. Troponins were 0.409 and 0.648. Chest x-ray showed changes of COPD, with no acute abnormalities. Progress note dated 11/21/2022. 72-year-old male with history of COPD. The patient was seen in consultation on November 20. Please see note above. The patient underwent cardiac catheterization yesterday. He was found to have mild coronary disease, and the LAD, circumflex, and right coronary artery. The patient was thought to have Takotsubo's cardiomyopathy, with an ejection fraction between 35 and 40%. The patient's currently on saline at 20 mL an hour, IV heparin, and amiodarone at 0.5 mg/m. The patient's also getting oxygen at 2 L by nasal cannula. In addition, the patient uses the BiPAP device, short period of time, last night, with settings of 14/6, and 35%. White count is 18.7, hemoglobin 14.2, hematocrit 46.3, with a normal platelet count. Sodium 135, potassium 5.3, chlorides 98, CO2 36, BUN 45, and creatinine 0.90. Pro-calcitonin level was 0.24. Progress note dated 11/22/2022. 72-year-old male seen in room 361. Currently, the patient's on 2 L of oxygen. No IV fluids. He did not use BiPAP device last night. The patient is doing much better. White count 13, hemoglobin 15.1, hematocrit 48.6, with a normal platelet count. Venous blood gases show a CO2 of 72, and a pH is 7.36. Sodium 136, potassium 4.6, chlorides 95, CO2 39, BUN 43, creatinine 0.80. Today's chest x-ray shows primarily changes of COPD. Objective - Vital Signs Vital signs: Vital Signs Temp 98.2 F 11/22/22 07:49 Pulse 131 H 11/22/22 07:49 Resp 20 11/22/22 07:49 BP 90/63 11/22/22 07:49 Pulse Ox 96 11/22/22 09:22 FiO2 35 11/21/22 00:23 Intake & Output 11/21/22 11/22/22 11/22/22 18:59 06:59 18:59 Intake Total 657.562 260 Output Total 325 300 Balance 332.562 -300 260 Intake: IV 20 Invasive Line 1 10 Invasive Line 2 10 Intake, IV Titration 421.562 Amount Amiodarone 450 mg In 287.779 Dextrose 5% in Water 250 ml @ 0.5 MG/MIN 16.667 mls/hr IV .Q15H LEDY Rx#: [id number] Heparin Sod,Pork in 0.45% 133.783 NaCl 25,000 unit In 0.45 % NaCl 1 250ml.bag @ 12 UNITS/KG/HR 6.532 mls/hr IV .Q24H LEDY Rx#: [id number] Oral 236 240 Output: Urine 325 300 Other: Voiding Method Urinal Toilet Toilet Urinal Urinal # Voids 2 # Bowel Movements 1 - Exam No acute distress, oriented 3. Currently on 2 L. Saturations are 97 %. HEENT examination is grossly unremarkable. Mucous membranes are moist. No oral lesions. Neck supple. Full range of motion. No adenopathy thyromegaly or neck vein distention. Cardiovascular examination reveals regular rhythm rate. S1-S2 normal. No S3 or S4. No discernible murmur noted. Heart sounds are distant. Heart rate 90 bpm. Lungs reveal diffuse bilateral expiratory rhonchi and wheezes. Saturations are 97 % on 2 L.. Abdomen soft bowel sounds are heard. No masses or tenderness. Extremities are intact. No cyanosis clubbing or edema. Skin is without rash or lesion. Neurologic examination is brief but nonfocal. - Labs CBC & Chem 7: 11/22/22 08:48 11/22/22 08:48 Labs: Abnormal Lab Results - Last 24 Hours (Table) 11/21/22 11/22/22 11/22/22 Range/Units 17:49 07:47 08:48 WBC 13.0 H (3.8-10.6) k/uL MCV 101.5 H (80.0-100.0) fL APTT 40.0 H (22.0-30.0) sec VBG pCO2 72 H* (37-51) mmHg VBG HCO3 41 H (24-28) mmol/L Sodium (137-145) mmol/L Chloride (98-107) mmol/L Carbon Dioxide (22-30) mmol/L BUN (9-20) mg/dL Glucose (74-99) mg/dL C-Reactive Protein (<1.0) mg/dL 11/22/22 Range/Units 08:48 WBC (3.8-10.6) k/uL MCV (80.0-100.0) fL APTT (22.0-30.0) sec VBG pCO2 (37-51) mmHg VBG HCO3 (24-28) mmol/L Sodium 136 L (137-145) mmol/L Chloride 95 L (98-107) mmol/L Carbon Dioxide 39 H (22-30) mmol/L BUN 43 H (9-20) mg/dL Glucose 111 H (74-99) mg/dL C-Reactive Protein 3.2 H (<1.0) mg/dL Assessment and Plan Assessment: Acute hypoxemic respiratory failure, secondary to COPD exacerbation. S/P cardiac catheterization, 11/20/2022, showing mild CAD, in the LAD, circumflex, and right coronary artery, and Takotsubo's cardiomyopathy. Atrial fibrillation with RVR. History of heavy and previous tobacco use. Gastroesophageal reflux disease. History of hyperlipidemia. L4/L5 spinal fusion. Plan: Plan dated 11/20/2022. The patient's Solu-Medrol was converted to prednisone 40 mg a day. The Symbicort is increased to 160/4.5, 2 puffs twice a day. The patient continues on IV heparin, until he is seen by cardiology. He is also receiving albuterol sulfate and ipratropium bromide. Azithromycin is changed from IV to by mouth. In addition, check a pro-calcitonin level. The patient may not need any antibiotic at all. Prognosis is guarded. Labs, x-rays, and medications are reviewed. Plan dated 11/21/2022. The patient appears to be relatively stable. He did use BiPAP last night for a few hours. He's currently on 2 L of oxygen. The patient's getting saline at 20 mL an hour, IV heparin, and amiodarone at 0.5 mg/m. We will continue to follow and make recommendations along the way. The patient's overall prognosis remains very guarded. Labs, x-rays, and medications are reviewed. Plan dated 11/22/2022. The patient did not use BiPAP last night. He can be discontinued from the room. He's not receiving any IV fluids. He is on oxygen at 2 L. Labs, x-rays, medications are reviewed. Chest x-ray shows primarily changes of COPD. The patient overall prognosis remains guarded. We'll continue to follow and make recommendations along the way. Time with Patient: Less than 30
--- NOTE | 2022-11-22 11:14 | XR ---
EXAMINATION TYPE: XR chest 1V portable DATE OF EXAM: 11/22/2022 COMPARISON: 11/19/2022 INDICATION: Follow-up respiratory failure short of breath TECHNIQUE: Single frontal view of the chest is obtained. FINDINGS: The heart size is normal. The pulmonary vasculature is somewhat prominent. Focal consolidations are evident. Hyperinflation is present. IMPRESSION: 1. Focal correlation for volume overload. 2. COPD
--- NOTE | 2022-11-22 11:51 | P.PN ---
Subjective HISTORY OF PRESENTING ILLNESS Patient is pleasant 72-year-old male with history of COPD, GERD, some medical noncompliance with patient not taking any medications however states he cannot afford medications, coronary artery calcifications, prior pneumothorax who presents secondary to shortness breath. He cannot recall all the details around when he presented however was having significant dyspnea and admits this has been going on for the past few weeks. He denies any chest pain around this episode however states at home he will get intermittent episodes of chest pain not necessarily associated with exertion. He was noted to have significantly elevated pCO2 100 and then down to 76 and had been placed on BiPAP. BUN 40 and creatinine 0.9. Troponins 0.02, 0.4, 0.64. He denies any prior history of CAD. He previously smoked however has not and a number of years, no alcohol, occasional marijuana. Family history of brother who from some form of cardiac issue possible arrhythmia. 11/21 Patient seen and exmained. Underwent LHC which shows consistent with Takotsubo's cardiomyopathy. Went into Afib with RVR yesterday has been heart rates 130s to 140s. He was placed on amiodarone. Blood pressures have been somewhat borderline systolics 90s to 110s. 11/22 Patient seen and examined. Patient still in A. fib with heart rates mainly 120s 130s. His metoprolol was increased to 37.5 twice a day however blood pressure still borderline in the 90s over 60s. Denies any lightheadedness. Shortness breath fairly stable. He has been receiving IV Lasix with creatinine stable at 0.8. PHYSICAL EXAMINATION Vital signs reviewed. CONSTITUTIONAL: No apparent distress, chronically ill appearing. HEENT: Head is normocephalic. Pupils are equal, round. Sclerae anicteric. Mucous membranes of the mouth are moist. No JVD. No carotid bruit. CHEST EXAMINATION: Lungs are clear to auscultation. No chest wall tenderness is noted on palpation or with deep breathing. HEART EXAMINATION: Regular rate and rhythm. S1, S2 heard. No murmurs, gallops or rub. ABDOMEN: Soft, nontender. Positive bowel sounds. EXTREMITIES: 2+ peripheral pulses, no lower extremity edema and no calf tenderness. NEUROLOGIC EXAMINATION: Patient is awake, alert and oriented x3. ASSESSMENT 1. Non-STEMI, related to Takotsubo's cardiomyopathy 2. Acute on chronic hypoxic and hypercarbic respiratory failure, likely mainly related to COPD 3. COPD 4. Intermittent episodes of chest pain at home 5. Coronary artery calcifications noted on prior CT 6. Prior history of pneumothorax 7. Medical noncompliance, unable to afford some medications 8. Acute on chronic systolic heart failure 9. Cardiomyopathy, Takotsubo's 10. New onset Afib with RVR 11. Mild CAD 30% LAD PLAN Patient surprisingly with elevated LVEDP and cardiomyopathy with EF 35-40% consistent with Takotsubo's cardiomyopathy. We will again increase his metoprolol to 50 mg twice a day and continue with amiodarone however ultimately may need a rhythm approach and discussed possible JULIA/CV. He states that his brother from shocking of the heart but appears related to VT. Patient agreeable to proceed with JULIA/CV if still uncontrolled by tomorrow. Keep patient NPO for possible JULIA/CV tomorrow. Continue Eliquis. Further recs to follow. Objective - Vital Signs Vital signs: Vital Signs Temp 98.2 F 11/22/22 07:49 Pulse 131 H 11/22/22 07:49 Resp 20 11/22/22 07:49 BP 90/63 11/22/22 07:49 Pulse Ox 96 11/22/22 09:22 FiO2 35 11/21/22 00:23 Intake & Output 11/21/22 11/22/22 11/22/22 18:59 06:59 18:59 Intake Total 657.562 260 Output Total 325 300 Balance 332.562 -300 260 Intake: IV 20 Invasive Line 1 10 Invasive Line 2 10 Intake, IV Titration 421.562 Amount Amiodarone 450 mg In 287.779 Dextrose 5% in Water 250 ml @ 0.5 MG/MIN 16.667 mls/hr IV .Q15H [facility] Rx#: [id number] Heparin Sod,Pork in 0.45% 133.783 NaCl 25,000 unit In 0.45 % NaCl 1 250ml.bag @ 12 UNITS/KG/HR 6.532 mls/hr IV .Q24H LEDY Rx#: [id number] Oral 236 240 Output: Urine 325 300 Other: Voiding Method Urinal Toilet Toilet Urinal Urinal # Voids 2 # Bowel Movements 1 - Labs CBC & Chem 7: 11/22/22 08:48 11/22/22 08:48 Labs: Abnormal Lab Results - Last 24 Hours (Table) 11/21/22 11/22/22 11/22/22 Range/Units 17:49 07:47 08:48 WBC 13.0 H (3.8-10.6) k/uL MCV 101.5 H (80.0-100.0) fL APTT 40.0 H (22.0-30.0) sec VBG pCO2 72 H* (37-51) mmHg VBG HCO3 41 H (24-28) mmol/L Sodium (137-145) mmol/L Chloride (98-107) mmol/L Carbon Dioxide (22-30) mmol/L BUN (9-20) mg/dL Glucose (74-99) mg/dL C-Reactive Protein (<1.0) mg/dL 11/22/22 Range/Units 08:48 WBC (3.8-10.6) k/uL MCV (80.0-100.0) fL APTT (22.0-30.0) sec VBG pCO2 (37-51) mmHg VBG HCO3 (24-28) mmol/L Sodium 136 L (137-145) mmol/L Chloride 95 L (98-107) mmol/L Carbon Dioxide 39 H (22-30) mmol/L BUN 43 H (9-20) mg/dL Glucose 111 H (74-99) mg/dL C-Reactive Protein 3.2 H (<1.0) mg/dL
[2022-11-22] MEDS: METOPROLOL TARTRATE 50 MG TAB PO SCH (20:40)
[2022-11-22 22:17] VITALS: RESP 18
[2022-11-23 07:31] LABS: HCT 44.7 % (39.0-53.0); HGB 13.7 gm/dL (13.0-17.5); Hypochromasia Slight; MCH 31.2 pg (25.0-35.0); MCHC 30.7 g/dL (31.0-37.0); MCV 101.7 fL (80.0-100.0); Macrocytosis Slight; Mean Platelet Volume 8.9; Platelet Count 200 k/uL (150-450); RBC 4.39 m/uL (4.30-5.90); RDW 12.8 % (11.5-15.5); WBC 11.8 k/uL (3.8-10.6)
[2022-11-23 07:53] LABS: African American GFR (CKD) >90 (>60 ml/min/1.73 sqM); Blood Urea Nitrogen 40 mg/dL (9-20); Chloride 95 mmol/L (98-107); Glucose 89 mg/dL (74-99); Non-African American GFR(CKD) 87 (>60 ml/min/1.73 sqM); Potassium 4.4 mmol/L (3.5-5.1); Sodium 138 mmol/L (137-145)
[2022-11-23 07:59] LABS: Anion Gap 0 mmol/L
[2022-11-23 08:12] LABS: Carbon Dioxide 43 mmol/L (22-30)
[2022-11-23] MEDS: SYMBICORT 160-4.5 MCG INHALER INHALATION SCH ×2 (08:35→20:51)
[2022-11-23 10:09] LABS: C Reactive Protein 2.3 mg/dL (<1.0)
--- NOTE | 2022-11-23 10:15 | P.PN ---
Subjective Progress Note Date: 11/23/22 72-year-old male seen in the emergency department, on November 19, complaining of shortness of breath. The patient does have a history of long-standing COPD. He does not use home oxygen. He is not a particularly good historian, but apparently developed shortness of breath, the day prior to his admission to the emergency department. He had minimal dry cough. No fever or chills. No chest pain or chest discomfort. The patient apparently had saturations in the 80s, when he was seen by EMS. He was brought into the emergency department, given breathing treatments and oxygen. He is seen today in room 361. He is a very poor historian. He apparently was on BiPAP, with settings of 14/6, and 35%. He's currently on IV heparin for an elevated troponin level. White count 10.4, hemoglobin 15.9, hematocrit 51.5, and platelet count is normal. Initial blood gases showed a pO2 of 89, pCO2 of 100, and pH is 7.18. Subsequent blood gases show pO2 125, pCO2 76, and pH is 7.28. I suspect the second blood gas, is when the patient was on BiPAP therapy. Sodium 137, potassium 5.8, chlorides 96, CO2 32, BUN 40, creatinine 0.91. Troponins were 0.409 and 0.648. Chest x-ray showed changes of COPD, with no acute abnormalities. Progress note dated 11/21/2022. 72-year-old male with history of COPD. The patient was seen in consultation on November 20. Please see note above. The patient underwent cardiac catheterization yesterday. He was found to have mild coronary disease, and the LAD, circumflex, and right coronary artery. The patient was thought to have Takotsubo's cardiomyopathy, with an ejection fraction between 35 and 40%. The patient's currently on saline at 20 mL an hour, IV heparin, and amiodarone at 0.5 mg/m. The patient's also getting oxygen at 2 L by nasal cannula. In ad dition, the patient uses the BiPAP device, short period of time, last night, with settings of 14/6, and 35%. White count is 18.7, hemoglobin 14.2, hematocrit 46.3, with a normal platelet count. Sodium 135, potassium 5.3, chlorides 98, CO2 36, BUN 45, and creatinine 0.90. Pro-calcitonin level was 0.24. Progress note dated 11/22/2022. 72-year-old male seen in room 361. Currently, the patient's on 2 L of oxygen. No IV fluids. He did not use BiPAP device last night. The patient is doing muc h better. White count 13, hemoglobin 15.1, hematocrit 48.6, with a normal platelet count. Venous blood gases show a CO2 of 72, and a pH is 7.36. Sodium 136, potassium 4.6, chlorides 95, CO2 39, BUN 43, creatinine 0.80. Today's chest x-ray shows primarily changes of COPD. On today's evaluation of 11/23/2022, the patient is feeling well. He sitting at the shortness of breath. He is on oxygen at 3 L/m nasal cannula. Free of any chest pain. Cardiac rhythm is sinus. He is on bronchodilators. He is on a prednisone burst taper. He is also on Symbicort. He does not have home oxygen. He was also placed on amiodarone at a dose of 400 mg by mouth twice a day. He is taking anticoagulation with Eliquis.dWhite cell count is 11.8, hemoglobin 13.7, BUN is at 40 with a creatinine of 0.8 and a sodium level is at 138. His pro calcitonin level was at 0.11. Objective - Vital Signs Vital signs: Vital Signs Temp 97.5 F L 11/23/22 08:34 Pulse 51 L 11/23/22 08:34 Resp 18 11/23/22 08:34 BP 95/51 11/23/22 08:34 Pulse Ox 97 11/23/22 08:36 FiO2 35 11/21/22 00:23 Intake & Output 11/22/22 11/23/22 11/23/22 18:59 06:59 18:59 Intake Total 378 0 Output Total 325 200 Balance 53 -200 Weight 54.1 kg Intake: IV 20 Invasive Line 1 10 Invasive Line 2 10 Oral 358 0 Output: Urine 325 200 Other: Voiding Method Toilet Urinal Urinal # Voids 1 0 # Bowel Movements 1 - Exam No acute distress, oriented 3. Currently on 3 L. Saturations are 97 %. HEENT examination is grossly unremarkable. Mucous membranes are moist. No oral lesions. Neck supple. Full range of motion. No adenopathy thyromegaly or neck vein distention. Cardiovascular examination reveals regular rhythm rate. S1-S2 normal. No S3 or S4. No discernible murmur noted. Heart sounds are distant. Lungs reveal diffuse bilateral expiratory rhonchi and wheezes. Abdomen soft bowel sounds are heard. No masses or tenderness. Extremities are intact. No cyanosis clubbing or edema. Skin is without rash or lesion. Neurologic examination is brief but nonfocal. - Labs CBC & Chem 7: 11/23/22 07:09 11/23/22 07:09 Labs: Abnormal Lab Results - Last 24 Hours (Table) 11/22/22 11/23/22 11/23/22 Range/Units 08:48 07:09 07:09 WBC 11.8 H (3.8-10.6) k/uL MCV 101.7 H (80.0-100.0) fL MCHC 30.7 L (31.0-37.0) g/dL Chloride 95 L (98-107) mmol/L Carbon Dioxide 43 H* (22-30) mmol/L BUN 40 H (9-20) mg/dL C-Reactive Protein 2.3 H (<1.0) mg/dL Procalcitonin 0.11 H (0.02-0.09) ng/mL Assessment and Plan Plan: Acute hypoxemic respiratory failure, secondary to COPD exacerbation. Acute hypoxic respiratory failure, currently still on oxygen at 3 L COPD Acute non-ST segment elevation myocardial infarction and the patient is post S/P cardiac catheterization, 11/20/2022, showing mild CAD, in the LAD, circumflex, and right coronary artery, and Takotsubo's cardiomyopathy. Atrial fibrillation with RVR. History of heavy and previous tobacco use. Gastroesophageal reflux disease. History of hyperlipidemia. L4/L5 spinal fusion. Previous history of pneumothorax Coronary artery disease, mild, involving the LAD, 30% plan Continue the same treatment Continue bronchodilators We'll need home O2 Will need a home bronchodilator for a nebulizer Prednisone burst taper Increase mobility We'll follow
[2022-11-23] MEDS: APIXABAN 5 MG TAB PO SCH ×2 (10:23→20:39)
[2022-11-23] MEDS: AZITHROMYCIN 500 MG TAB PO SCH (10:23)
[2022-11-23] MEDS: guaiFENesin 600 MG TABLET.ER PO SCH ×2 (10:23→20:39)
[2022-11-23] MEDS: predniSONE 20 MG TAB PO SCH (10:23)
[2022-11-23] MEDS: AMIODARONE 200 MG TAB PO SCH ×2 (10:23→20:39)
[2022-11-23] MEDS: FUROSEMIDE 10 MG/ML 4 ML VIAL IV SCH (10:23)
[2022-11-23] MEDS: METOPROLOL TARTRATE 25 MG TAB PO SCH ×2 (10:28→20:39)
[2022-11-23] MEDS: METOPROLOL TARTRATE 50 MG TAB PO SCH (11:00)
--- NOTE | 2022-11-23 12:43 | P.PN ---
Subjective Progress Note Date: 11/23/22 * 72-year-old gentleman with past medical history significant for COPD, per chart review how the patient not on any medications previous hospitalization in 2021 with documented diagnoses of COPD, was seen by pulmonary medicine for shortness of breath right-sided pneumothorax and had poor vent placement, pr esented to the emergency department with complaints of repeat episode of shortness of breath * Patient was noted to be in acute distress having difficulty in breathing dry cough. Patienton noninvasive ventilation/BiPAP secondary to hypoxia at the time of presentation patient was placed on 3 L of oxygen and he does not use oxygen at home * Workup initiated in ER included CBC which showed white blood cell count of 12.2, platelet count within normal limits. PT/INR within normal limits * A d-dimer was checked which was negative * Basic blood work obtained showed acute hyperkalemia with potassium of 5.8, creatinine of 0.74. Troponin obtained 0.409, serum lactate of 1.6 * Tested negative for Covid and influenza * Chest x-ray obtained showed no focal infiltrate or pneumothorax hyperinflation noted changes consistent with COPD * 11/21: Patient seen and evaluated bedside, patient does have excessive sputum production. Status post cardiac catheterization nonocclusive coronary artery disease noted. Continue patient on breathing treatments. Hyperkalemia noted and corrected * 11/22 : Patient seen and evaluated bedside, chest x-ray shows changes consistent with COPD. Venous blood gas shows hypercapnia however unchanged pH 7.36. Continue patient on oxygen supplementation. Continue to monitor for tachycardia 11/23. Patient seen and examined. Currently on 3 L of oxygen, desaturates on ambulation. Pulmonology following REVIEW OF SYSTEMS: CONSTITUTIONAL: No fever, no malaise,. CARDIOVASCULAR: No chest pain, no palpitations, no syncope. PULMONARY: Gets short of breath on exertion GASTROINTESTINAL: No diarrhea, no nausea, no vomiting, no abdominal pain. NEUROLOGICAL: No headaches, no weakness, PHYSICAL EXAMINATION: GENERAL: The patient is alert and oriented x3, not in any acute distress. Well developed, well nourished. HEENT: Pupils are round and equally reacting to light. EOMI. No scleral icterus. No conjunctival pallor. Normocephalic, atraumatic. No pharyngeal erythema. No thyromegaly. CARDIOVASCULAR: S1 and S2 present. No murmurs, rubs, or gallops. PULMONARY: Chest is clear to auscultation, no wheezing or crackles. ABDOMEN: Soft, nontender, nondistended, normoactive bowel sounds. No palpable organomegaly. MUSCULOSKELETAL: No joint swelling or deformity. EXTREMITIES: No cyanosis, clubbing, or pedal edema. NEUROLOGICAL: Gross neurological examination did not reveal any focal deficits. SKIN: No rashes. Assessment and plan * Acute hypoxic hypercapnic respiratory failure * COPD exacerbation * A. fib with RVR * Acute tracheobronchitis * Non-ST elevated [place], Mild CAD * Takisubocardiomyopathy>> Acute Systolic CHF * Chronic tobacco use * Acute hyperkalemia Resolved * Monitor vital signs Monitor CBC Monitor CMP Continue telemetry monitoring continue prednisone and breathing treatments status post cardiac catheterization nonocclusive coronary artery disease continue medical management Cardiology following Pulmonary following Discussed with patient and the need for him to be compliant with his medications, patient states he takes a lot of herbal medications, not very keen to take medications. Labs and medication were reviewed.. Continue same treatment. Continue with symptomatic treatment. Resume home medication. Monitor labs and vitals. DVT and GI prophylaxis. Further recommendations as per clinical course of the patient Dictation was produced using [employer] dictation software. please excuse any grammatical, word or spelling errors. Objective - Vital Signs Vital signs: Vital Signs Temp 97.5 F L 11/23/22 08:34 Pulse 51 L 11/23/22 08:34 Resp 18 11/23/22 08:34 BP 95/51 11/23/22 08:34 Pulse Ox 97 11/23/22 08:36 FiO2 35 11/21/22 00:23 Intake & Output 11/22/22 11/23/22 11/23/22 18:59 06:59 18:59 Intake Total 378 0 Output Total 325 200 Balance 53 -200 Weight 54.1 kg Intake: IV 20 Invasive Line 1 10 Invasive Line 2 10 Oral 358 0 Output: Urine 325 200 Other: Voiding Method Toilet Urinal Urinal # Voids 1 0 # Bowel Movements 1 - Labs CBC & Chem 7: 11/23/22 07:09 11/23/22 07:09 Labs: Abnormal Lab Results - Last 24 Hours (Table) 11/22/22 11/22/22 11/22/22 Range/Units 07:47 08:48 08:48 WBC 13.0 H (3.8-10.6) k/uL MCV 101.5 H (80.0-100.0) fL MCHC (31.0-37.0) g/dL VBG pCO2 72 H* (37-51) mmHg VBG HCO3 41 H (24-28) mmol/L Sodium (137-145) mmol/L Chloride (98-107) mmol/L Carbon Dioxide (22-30) mmol/L BUN (9-20) mg/dL Glucose (74-99) mg/dL C-Reactive Protein (<1.0) mg/dL Procalcitonin 0.11 H (0.02-0.09) ng/mL 11/22/22 11/23/22 11/23/22 Range/Units 08:48 07:09 07:09 WBC 11.8 H (3.8-10.6) k/uL MCV 101.7 H (80.0-100.0) fL MCHC 30.7 L (31.0-37.0) g/dL VBG pCO2 (37-51) mmHg VBG HCO3 (24-28) mmol/L Sodium 136 L (137-145) mmol/L Chloride 95 L 95 L (98-107) mmol/L Carbon Dioxide 39 H 43 H* (22-30) mmol/L BUN 43 H 40 H (9-20) mg/dL Glucose 111 H (74-99) mg/dL C-Reactive Protein 3.2 H (<1.0) mg/dL Procalcitonin (0.02-0.09) ng/mL
[2022-11-23 13:18] VITALS: BMI 15.7
--- NOTE | 2022-11-24 06:02 | PN ---
PROGRESS NOTE SUBJECTIVE: Mr. 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 He is resting comfortably. He also went into atrial fib, but has since then converted to sinus rhythm. I am recommending that we continue beta beverley to 25 mg b.i.d. instead of 50 and decrease amiodarone to 200 mg b.i.d. after 1 week. He is on Eliquis. He can be discharged today and see Dr. Guidry in 1 week. The patient's room air oxygen saturation is good. OBJECTIVE: VITAL SIGNS: Stable. NECK: No JVD. CARDIOVASCULAR: S1, S2 heard normally. No significant murmurs. LUNGS: Clear. ABDOMEN: Unchanged. EXTREMITIES: Lower extremity exam is unchanged. MMODL / IJN: [id number] /
[2022-11-24 08:29] VITALS: TEMP 97.8
[2022-11-24] MEDS: METOPROLOL TARTRATE 25 MG TAB PO SCH (08:32)
[2022-11-24] MEDS: APIXABAN 5 MG TAB PO SCH (08:32)
[2022-11-24] MEDS: predniSONE 20 MG TAB PO SCH (08:32)
[2022-11-24] MEDS: guaiFENesin 600 MG TABLET.ER PO SCH (08:32)
[2022-11-24] MEDS: AMIODARONE 200 MG TAB PO SCH (08:32)
[2022-11-24] MEDS: FUROSEMIDE 10 MG/ML 4 ML VIAL IV SCH (08:33)
[2022-11-24] MEDS: SYMBICORT 160-4.5 MCG INHALER INHALATION SCH (08:54)
--- NOTE | 2022-11-24 11:26 | P.PN ---
Subjective Progress Note Date: 11/24/22 72-year-old male seen in the emergency department, on November 19, complaining of shortness of breath. The patient does have a history of long-standing COPD. He does not use home oxygen. He is not a particularly good historian, but apparently developed shortness of breath, the day prior to his admission to the emergency department. He had minimal dry cough. No fever or chills. No chest pain or chest discomfort. The patient apparently had saturations in the 80s, when he was seen by EMS. He was brought into the emergency department, given breathing treatments and oxygen. He is seen today in room 361. He is a very poor historian. He apparently was on BiPAP, with settings of 14/6, and 35%. He's currently on IV heparin for an elevated troponin level. White count 10.4, hemoglobin 15.9, hematocrit 51.5, and platelet count is normal. Initial blood gases showed a pO2 of 89, pCO2 of 100, and pH is 7.18. Subsequent blood gases show pO2 125, pCO2 76, and pH is 7.28. I suspect the second blood gas, is when the patient was on BiPAP therapy. Sodium 137, potassium 5.8, chlorides 96, CO2 32, BUN 40, creatinine 0.91. Troponins were 0.409 and 0.648. Chest x-ray showed changes of COPD, with no acute abnormalities. Progress note dated 11/21/2022. 72-year-old male with history of COPD. The patient was seen in consultation on November 20. Please see note above. The patient underwent cardiac catheterization yesterday. He was found to have mild coronary disease, and the LAD, circumflex, and right coronary artery. The patient was thought to have Takotsubo's cardiomyopathy, with an ejection fraction between 35 and 40%. The patient's currently on saline at 20 mL an hour, IV heparin, and amiodarone at 0.5 mg/m. The patient's also getting oxygen at 2 L by nasal cannula. In ad dition, the patient uses the BiPAP device, short period of time, last night, with settings of 14/6, and 35%. White count is 18.7, hemoglobin 14.2, hematocrit 46.3, with a normal platelet count. Sodium 135, potassium 5.3, chlorides 98, CO2 36, BUN 45, and creatinine 0.90. Pro-calcitonin level was 0.24. Progress note dated 11/22/2022. 72-year-old male seen in room 361. Currently, the patient's on 2 L of oxygen. No IV fluids. He did not use BiPAP device last night. The patient is doing muc h better. White count 13, hemoglobin 15.1, hematocrit 48.6, with a normal platelet count. Venous blood gases show a CO2 of 72, and a pH is 7.36. Sodium 136, potassium 4.6, chlorides 95, CO2 39, BUN 43, creatinine 0.80. Today's chest x-ray shows primarily changes of COPD. On today's evaluation of 11/23/2022, the patient is feeling well. He sitting at the shortness of breath. He is on oxygen at 3 L/m nasal cannula. Free of any chest pain. Cardiac rhythm is sinus. He is on bronchodilators. He is on a prednisone burst taper. He is also on Symbicort. He does not have home oxygen. He was also placed on amiodarone at a dose of 400 mg by mouth twice a day. He is taking anticoagulation with Eliquis.dWhite cell count is 11.8, hemoglobin 13.7, BUN is at 40 with a creatinine of 0.8 and a sodium level is at 138. His pro calcitonin level was at 0.11. On 11/24/2022, the patient is being seen for a follow-up. Patient is doing well. No specific complaints. He is post cardiac catheterization he was found to have mild CAD, 30% LAD, 30% circumflex and RCA. He was diagnosed having also cardiomyopathy with ejection fraction of 35-40%. Currently is being treated for COPD exacerbation. Home O2 was delivered. He is on a prednisone burst taper. Is also on bronchodilators. No chest pain. No new labs from today. He has chronic hypoxic respiratory failure the patient would benefit from home O2. EKG from today shows a normal sinus rhythm with evidence of old septal infarct and T-wave inversions and ST segment changes throughout the EKG along with right axis deviation. Objective - Vital Signs Vital signs: Vital Signs Temp 97.8 F 11/24/22 08:28 Pulse 52 L 11/24/22 08:28 Resp 18 11/24/22 08:28 BP 108/62 11/24/22 08:28 Pulse Ox 98 11/24/22 08:28 FiO2 35 11/21/22 00:23 Intake & Output 11/23/22 11/24/22 11/24/22 18:59 06:59 18:59 Intake Total 478 Output Total 575 350 300 Balance -97 -350 -300 Weight 54.1 kg 54.2 kg Intake: Oral 478 Output: Urine 575 350 300 Other: Voiding Method Urinal Urinal - Exam No acute distress, oriented 3. Currently on 3 L. Saturations are 97 %. HEENT examination is grossly unremarkable. Mucous membranes are moist. No oral lesions. Neck supple. Full range of motion. No adenopathy thyromegaly or neck vein distention. Cardiovascular examination reveals regular rhythm rate. S1-S2 normal. No S3 or S4. No discernible murmur noted. Heart sounds are distant. Lungs reveal diffuse bilateral expiratory rhonchi and wheezes. Abdomen soft bowel sounds are heard. No masses or tenderness. Extremities are intact. No cyanosis clubbing or edema. Skin is without rash or lesion. Neurologic examination is brief but nonfocal. - Labs CBC & Chem 7: 11/23/22 07:09 11/23/22 07:09 Labs: Abnormal Lab Results - Last 24 Hours (Table) 11/23/22 Range/Units 07:09 C-Reactive Protein 2.3 H (<1.0) mg/dL Assessment and Plan Plan: Acute hypoxemic respiratory failure, secondary to COPD exacerbation. The patient remains on oxygen at 2 L at home O2 was delivered Acute hypoxic respiratory failure, currently still on oxygen at 2 L COPD Acute non-ST segment elevation myocardial infarction and the patient is post S/P cardiac catheterization, 11/20/2022, showing mild CAD, in the LAD, circumflex, and right coronary artery, and Takotsubo's cardiomyopathy. Atrial fibrillation with RVR. History of heavy and previous tobacco use. Gastroesophageal reflux disease. History of hyperlipidemia. L4/L5 spinal fusion. Previous history of pneumothorax Coronary artery disease, mild, involving the LAD, 30% plan The patient is clinically stable Cardiac condition is stable Pulmonary status is stable Continue the same treatment, completed a prednisone burst taper Continue bronchodilators Increase mobility We'll follow Discharge planning is in progress
--- NOTE | 2022-11-24 11:53 | P.PN ---
Subjective Progress Note Date: 11/24/22 History of present illness: This is a 72-year-old male presented to the hospital with atypical chest pain, has no significant obstructive CAD and the LV function suggestive of apical ballooning syndrome. Patient went into atrial fibrillation since converted to sinus rhythm and remains in a sinus rhythm most morning. Yesterday, beta beverley was continued at 25 mg twice daily instead of 50 mg and amiodarone was decreased to 200 mg twice daily after 1 week patient has been continued on eliquis. His vital signs are stable. No new concerns. Physical examination: VS: reviewed LUNGS: Clear to auscultation. No wheezes or rhonchi. No intercostal retractions. HEART: Regular rate and rhythm. No murmur. EXTREMITIES: No pedal edema. NEUROLOGICAL: Patient is awake, alert and oriented. Assessment: Atypical chest pain Atrial fibrillation, new onset paroxysmal Apical ballooning syndrome Plan: Continue current cardiac medications Patient is cleared for discharge and may follow-up with Dr. Guidry in 1-2 weeks. Nurse practitioner note has been reviewed, I agree with documented findings and plan of care. Patient was seen and examined. Objective - Vital Signs Vital signs: Vital Signs Temp 97.8 F 11/24/22 08:28 Pulse 56 L 11/24/22 10:38 Resp 18 11/24/22 10:38 BP 108/62 11/24/22 08:28 Pulse Ox 98 11/24/22 08:28 FiO2 35 11/21/22 00:23 Intake & Output 11/23/22 11/24/22 11/24/22 18:59 06:59 18:59 Intake Total 478 Output Total 575 350 300 Balance -97 -350 -300 Weight 54.1 kg 54.2 kg Intake: Oral 478 Output: Urine 575 350 300 Other: Voiding Method Urinal Urinal Urinal - Labs CBC & Chem 7: 11/23/22 07:09 11/23/22 07:09
--- NOTE | 2022-11-24 11:57 | P.DS ---
Providers Date of admission: 11/19/22 21:41 Expected date of discharge: 11/24/22 Attending physician: Rachael Mc Consults: 11/19/22 21:24 Consult Physician Routine Consulting Provider: Taras Rosas Consult Reason/Comments: dyspnea Do you want consulting provider notified?: Yes 11/20/22 01:42 Consult Physician Routine Consulting Provider: Magdi Donald Consult Reason/Comments: elevated troponin Do you want consulting provider notified?: Already Contacted Primary care physician: Natalie Noguera [facility] Course: * 72-year-old gentleman with past medical history significant for COPD, per chart review how the patient not on any medications previous hospitalization in 2021 with documented diagnoses of COPD, was seen by pulmonary medicine for shortness of breath right-sided pneumothorax and had poor vent placement, presented to the emergency department with complaints of repeat episode of shortness of breath * Patient was noted to be in acute distress having difficulty in breathing dry cough. Patienton noninvasive ventilation/BiPAP secondary to hypoxia at the time of presentation patient was placed on 3 L of oxygen and he does not use oxygen at home * Workup initiated in ER included CBC which showed white blood cell count of 12.2, platelet count within normal limits. PT/INR within normal limits * A d-dimer was checked which was negative * Basic blood work obtained showed acute hyperkalemia with potassium of 5.8, creatinine of 0.74. Troponin obtained 0.409, serum lactate of 1.6 * Tested negative for Covid and influenza * Chest x-ray obtained showed no focal infiltrate or pneumothorax hyperinflation noted changes consistent with COPD * 11/21: Patient seen and evaluated bedside, patient does have excessive sputum production. Status post cardiac catheterization nonocclusive coronary artery disease noted. Continue patient on breathing treatments. Hyperkalemia noted and corrected * 11/22 : Patient seen and evaluated bedside, chest x-ray shows changes con sistent with COPD. Venous blood gas shows hypercapnia however unchanged pH 7.36. Continue patient on oxygen supplementation. Continue to monitor for tachycardia * 11/23. Patient seen and examined. Currently on 3 L of oxygen, desaturates on ambulation. Pulmonology following * 11/24: Patient seen and evaluated bedside. Medically ready for discharge. By cardiology and pulmonary medicine GENERAL: The patient is alert and oriented x3, not in any acute distress. nasal cannula in place HEENT: Pupils are round and equally reacting to light. EOMI. No scleral icterus. No conjunctival pallor. Normocephalic, atraumatic. No pharyngeal erythema. No thyromegaly. CARDIOVASCULAR: S1 and S2 present. Irregular rhythm and rate controlled PULMONARY: Decreased breath sounds bilateral ABDOMEN: Soft, nontender, nondistended, normoactive bowel sounds. No palpable organomegaly. MUSCULOSKELETAL: No joint swelling or deformity. EXTREMITIES: No cyanosis, clubbing, or pedal edema. NEUROLOGICAL: Gross neurological examination did not reveal any focal deficits. Assessment: Assessment and plan * Acute hypoxic hypercapnic respiratory failure * COPD exacerbation * A. fib with RVR * Acute tracheobronchitis * Non-ST elevated [place], Mild CAD * Takisubocardiomyopathy>> Acute Systolic CHF * Chronic tobacco use * Acute hyperkalemia Resolved * Consult obtained from pulmonary medicine and cardiology * In regards to hypoxic hypercapnic respiratory failure> weaned down from BiPAP to nasal cannula, completed course of azithromycin * In regards to COPD exacerbation continue prednisone and azithromycin Day /. Coarse completed * In regards to elevated troponin cardiology consulted, status post cardiac catheterization nonocclusive coronary artery disease noted medical management * In regards to new onset atrial fibrillation rapid ventricular response patient was on IV heparin and amiodarone drip cardiology following>> Started eliquis and oral amiodarone, Metoprolol. Prescription provided * In regards to acute hyperkalemia , patient given insulin and dextrose>> Followup Improved , hyperkalemia resolved * In regards to acute systolic congestive heart failure. Continue patient on IV Lasix monitor intake and output. Chest x-ray 11/22 that showed pulmonary vascular congestion. Discharge on oral Lasix Patient Condition at Discharge: Fair Plan - Discharge Summary Discharge Rx Participant: Yes New Discharge Prescriptions: New Amiodarone [Cordarone] 200 mg PO BID 7 Days #14 tab predniSONE [Deltasone] 40 mg PO DAILY 5 Days #10 tab Apixaban [Eliquis] 5 mg PO BID 30 Days #60 tab Metoprolol Tartrate [Lopressor] 25 mg PO BID 30 Days #60 tab Budesonide-Formot 160-4.5 Mcg [Symbicort 160-4.5 Mcg Inhaler] 2 puff INHALATION RT-BID 30 Days #1 each Albuterol Sulfate [Albuterol Sulfate Hfa] 1 puff PO Q4-6H #8.5 gm Furosemide [Lasix] 40 mg PO DAILY 30 Days #30 tablet Discharge Medication List Albuterol Sulfate [Albuterol Sulfate Hfa] 1 puff PO Q4-6H #8.5 gm 11/24/22 [Rx] Amiodarone [Cordarone] 200 mg PO BID 7 Days #14 tab 11/24/22 [Rx] Apixaban [Eliquis] 5 mg PO BID 30 Days #60 tab 11/24/22 [Rx] Budesonide-Formot 160-4.5 Mcg [Symbicort 160-4.5 Mcg Inhaler] 2 puff INHALATION RT-BID 30 Days #1 each 11/24/22 [Rx] Furosemide [Lasix] 40 mg PO DAILY 30 Days #30 tablet 11/24/22 [Rx] Metoprolol Tartrate [Lopressor] 25 mg PO BID 30 Days #60 tab 11/24/22 [Rx] predniSONE [Deltasone] 40 mg PO DAILY 5 Days #10 tab 11/24/22 [Rx] Follow up Appointment(s)/Referral(s): Rohith Guidry DO [STAFF PHYSICIAN] - 1 Week (You will need refills on Amiodarone, See DR Guidry ) Discharge Disposition: HOME SELF-CARE
[2022-11-24 17:45] VITALS: BP 134/81; PULSE 64
== END 2022-11-24 17:31 | disposition home or self-care (01) | DRG 280 ==
LOC: EC 18:32 → 3SCARD 21:41
PROVIDERS: ADMIT Internal Medicine; ATTEND Internal Medicine
PROC: 5A09357 Assistance with Respiratory Ventilation, Less than 24 Consecutive Hours, Continuous Positive Airway Pressure (ICD-10-PCS; 2022-11-19)
PROC: B2151ZZ Fluoroscopy of Left Heart using Low Osmolar Contrast (ICD-10-PCS; 2022-11-20)
PROC: 4A023N7 Measurement of Cardiac Sampling and Pressure, Left Heart, Percutaneous Approach (ICD-10-PCS; principal; 2022-11-20 10:50)
PROC: B2111ZZ Fluoroscopy of Multiple Coronary Arteries using Low Osmolar Contrast (ICD-10-PCS; 2022-11-20 10:50)
DX: I21.4 Non-ST elevation (NSTEMI) myocardial infarction (principal); I50.23 Acute on chronic systolic (congestive) heart failure; J96.21 Acute and chronic respiratory failure with hypoxia; J96.22 Acute and chronic respiratory failure with hypercapnia; J44.0 Chronic obstructive pulmonary disease with (acute) lower respiratory infection; J44.1 Chronic obstructive pulmonary disease with (acute) exacerbation; E87.29 Other acidosis; I11.0 Hypertensive heart disease with heart failure; I48.91 Unspecified atrial fibrillation; J20.9 Acute bronchitis, unspecified; E87.5 Hyperkalemia; I25.10 Atherosclerotic heart disease of native coronary artery without angina pectoris; K21.9 Gastro-esophageal reflux disease without esophagitis; E78.5 Hyperlipidemia, unspecified; Z20.822 Contact with and (suspected) exposure to COVID-19; I25.2 Old myocardial infarction; Z98.1 Arthrodesis status; Z87.891 Personal history of nicotine dependence; Z28.311 Partially vaccinated for COVID-19; Z79.01 Long term (current) use of anticoagulants; Z91.199 Patient's noncompliance with other medical treatment and regimen due to unspecified reason; Z63.4 Disappearance and death of family member; Z87.09 Personal history of other diseases of the respiratory system
CPT/HCPCS: 36415; 36600; 71045; 71046; 76937; 80048; 80053; 82803; 82805; 83605; 83735; 83880; 84132; 84145; 84484; 85025; 85027; 85379; 85610; 85730; 86140; 87636; 93005; 93458; 94640; 94660; 94760; 96374; 99291